=== PATIENT | female | born 1960 | race Caucasian/White ===

== ENCOUNTER 2016-12-15 15:32 | Emergency (ER) | payer OTHER ==
[~2016-12-15] VITALS: Ht 177.8 cm; Wt 125.0 kg
[~2016-12-15 15:32] MED LIST: CLON2TAB3 PO; HYDR-4079 PO; LEVO50TA PO; OMEP40CA PO; TRAZ100T29 PO
[2016-12-15 15:40] VITALS: TEMP 36.7; Ht 177.8 cm; Wt 125.0 kg
[2016-12-15] MEDS ORDERED: GABA-113 PO (16:02)
[2016-12-15] MEDS ORDERED: OMEP20CA59 PO (16:02)
[2016-12-15] MEDS ORDERED: MoRPHine SULFATE 10 MG/ML CARP/VIAL IM STA (16:11)
--- NOTE | 2016-12-15 16:31 | DIAGNOSTIC IMAGING REPORT ---
CERVICAL SPINE CT CT DOSE: HISTORY: Trauma. Pain. fall, neck pain TECHNIQUE: Multiaxial CT images of the cervical spine were performed and reformatted in the sagittal and coronal plane without the use of contrast. COMPARISON: None. FINDINGS: No fractures. No subluxation. Prevertebral soft tissues and the C1-C2 interval are intact. No pneumothorax. Moderate degenerative disc change. Prior anterior cervical fusion C6-C7. IMPRESSION: No acute process Electronically signed by: Eliu Fournier M.D. 12/15/2016 4:29 PM Dictated Date/Time: 12/15/2016 4:26 PM
--- NOTE | 2016-12-15 16:42 | DIAGNOSTIC IMAGING REPORT ---
HEAD CT NONCONTRAST CT DOSE: 1105.19 mGy.cm HISTORY: fall, head injury TECHNIQUE: Multiaxial CT images of the head were performed without the use of intravenous contrast. Automated exposure control was utilized for this study. Comparison: Head CT 05/27/2016. Findings: The paranasal sinuses and mastoid air cells are clear. The calvarium and skull base are intact. The ventricles and sulci are within normal limits. There is no mass, hematoma, midline shift, or acute infarct. Impression: No acute intracranial abnormality. Electronically signed by: Vick Belcher M.D. 12/15/2016 4:39 PM Dictated Date/Time: 12/15/2016 4:37 PM
--- NOTE | 2016-12-15 17:11 | DIAGNOSTIC IMAGING REPORT ---
RIGHT HIP UNILATERAL 2 VIEWS CLINICAL HISTORY: fall, right hip pain Right COMPARISON: None. DISCUSSION: The bones and joint spaces appear intact. There is no evidence of fracture, dislocation or bony disease. Moderate generalized degenerative change. IMPRESSION: Degenerative change. No acute bony abnormality. Electronically signed by: Eliu Fournier M.D. 12/15/2016 5:09 PM Dictated Date/Time: 12/15/2016 5:06 PM
--- NOTE | 2016-12-15 17:13 | DIAGNOSTIC IMAGING REPORT ---
RIGHT KNEE 3 VIEWS CLINICAL HISTORY: fall, right knee pain Right trauma. Pain. COMPARISON: None DISCUSSION: Considerable degenerative and postoperative change throughout the knee. Prominence of the anterior tibial tubercle is on a degenerative and a postoperative basis. No well-defined acute bony abnormality. Degenerative change of all major joint compartments of the knee. No significant joint effusion. There is no evidence for soft tissue swelling. Linear lucency lateral aspect proximal tibial metaphysis. This appears represent overlap artifact of the posterior fibula. IMPRESSION: Degenerative and postoperative change. No acute process. Electronically signed by: Eliu Fournier M.D. 12/15/2016 5:11 PM Dictated Date/Time: 12/15/2016 5:09 PM
--- NOTE | 2016-12-15 17:14 | DIAGNOSTIC IMAGING REPORT ---
LUMBAR SPINE 5 VIEWS HISTORY: Trauma. Pain. fall, low back pain COMPARISON: None. FINDINGS: There is no fracture. No subluxation. Generalized degenerative disc change. No acute compression deformity. IMPRESSION: Degenerative change. No acute process. Electronically signed by: Eliu Fournier M.D. 12/15/2016 5:12 PM Dictated Date/Time: 12/15/2016 5:11 PM
[2016-12-15 17:42] VITALS: BP 122/64; PULSE 66; O2SAT 97
[2016-12-15] MEDS ORDERED: CYCL10TA6 PO (17:50)
--- NOTE | 2016-12-15 17:51 | EMERGENCY ROOM VISIT NOTE ---
History First contact with patient: 15:42 Chief Complaint: FALL Stated Complaint: FELL, FACE, BACK, HIP AND KNEE PAIN History of Present Illness The patient is a 56 year old female who presents to the Emergency Room for evaluation after a fall. The patient states that she tripped over a hose and fell face forward. She landed onto her knees in the stones and did strike her face off the concrete. She rates her overall discomfort a 10/10. She complains of pain primarily in her head, neck, low back, right hip and right knee. The fall was not associated with any dizziness or lightheadedness. She denies any vomiting, loss of consciousness, blurry vision, slurred speech, numbness or weakness. Review of Systems A complete 6-point Review of Systems was discussed with the patient, with pertinent positives and negatives listed in the History of Present Illness. All remaining Review of Systems questions can be considered negative unless otherwise specified. Past Medical/Surgical History Medical Problems: (1) COPD (chronic obstructive pulmonary disease) Family History Patient reports no known family medical history. Social History Smoking Status: Current Every Day Smoker Marital Status: Housing Status: lives with family Occupation Status: unemployed Current/Historical Medications Scheduled Clonazepam (Klonopin), 2 MG PO TID Cyclobenzaprine Hcl (Flexeril), 10 MG PO TID Gabapentin (Neurontin), 300 MG PO TID Levothyroxine Sodium (Synthroid), 50 MCG PO DAILY Omeprazole (Prilosec), 20 MG PO DAILY Trazodone Hcl (Trazodone), 200 MG PO HS Scheduled PRN Hydrocodone/Acetaminophen 10MG/325MG ([place] 10MG/325MG), 1 TAB PO Q4H PRN for Pain Allergies Coded Allergies: Codeine (Unverified Allergy, Severe, DIFFICULTY BREATHING, 12/15/16) Ibuprofen (Unverified Allergy, Unknown, swelling, 12/15/16) Physical Exam Vital Signs Date Time Temp Pulse Resp B/P Pulse Ox O2 Delivery O2 Flow Rate FiO2 12/15/16 17:42 66 18 122/64 97 Room Air 12/15/16 15:40 36.7 88 18 132/80 95 Room Air Physical Exam VITALS: Vitals are noted on the nurse's note and reviewed by myself. Vital signs stable. GENERAL: This is a 56-year-old female, in no acute distress, nondiaphoretic, well-developed well-nourished. SKIN: There are abrasions to bilateral knees. No lacerations. HEAD: Normocephalic atraumatic. EARS: External auditory canals clear, tympanic membranes pearly yap without erythema or effusion bilaterally. No hemotympanum. EYES: Pupils equal round and reactive to light and accommodation. Extraocular movements intact. NOSE: No deformity noted. No tenderness over the nasal spine. MOUTH: Mucous membranes moist. No loose or chipped teeth. NECK: Supple without nuchal rigidity. Mild tenderness over the cervical spine. HEART: Regular rate and rhythm without murmurs gallops or rubs. LUNGS: Clear to auscultation bilaterally without wheezes, rales or rhonchi. MUSCULOSKELETAL: There is tenderness to palpation over the lumbar spine, right hip and right knee. Full range of motion of all joints. NEURO: Patient was alert and oriented to person place and time. Medical Decision & Procedures ER Provider Diagnostic Interpretation: HEAD CT NONCONTRAST Impression: No acute intracranial abnormality. CERVICAL SPINE CT IMPRESSION: No acute process LUMBAR SPINE 5 VIEWS IMPRESSION: Degenerative change. No acute process. RIGHT HIP UNILATERAL 2 VIEWS IMPRESSION: Degenerative change. No acute bony abnormality. RIGHT KNEE 3 VIEWS IMPRESSION: Degenerative and postoperative change. No acute process. Medications Administered Medications (Trade) Dose Ordered Sig/Caroline Route Start Time Stop Time Status Last Admin Dose Admin Morphine Sulfate (MoRPHine SULFATE INJ) 6 mg NOW STAT IM 12/15/16 16:11 12/15/16 16:12 DC 12/15/16 16:24 6 MG ED Course The patient was evaluated as above. She was placed in a cervical collar Patient was medicated with 6 mg morphine IM. Imaging studies were performed and read by radiology as above. Patient was reevaluated and felt much better. She was ready for discharge home. Discharge instructions were reviewed with the patient. The patient verbalized understanding of my assessment and treatment plan and was discharged home in good condition. Medical Decision Patient was evaluated as above. She was given 6 mg morphine IM for pain. She was reevaluated and had significant improvement of her pain and felt much better. X-rays and CT scans were obtained and read by radiology as above. No acute findings were noted. Conservative measures were discussed. The patient will follow-up with her primary care provider as needed. She verbalized understanding of my assessment and treatment plan and was discharged home in good condition. Impression Primary Impression: Fall Additional Impression: Contusion of multiple sites Departure Information Dispostion Home / Self-Care Condition GOOD Prescriptions Cyclobenzaprine Hcl (FLEXERIL) 10 Mg Tab 10 MG PO TID for 5 Days, #15 TAB Prov: Sue Schultz PA-C 12/15/16 Referrals Cosmo Olmedo M.D. (PCP) Patient Instructions My [facility] Additional Instructions Continue your Argyle at home as needed for pain. You have been prescribed Flexeril (cyclobenzaprine) 1-2 tabs orally, three times per day. Do NOT exceed 30 mg (6 tabs) per day. Take your first dose at bedtime as it can make you drowsy. Always take all medications as prescribed. Follow-up with your primary care provider or orthopedics as needed. Problem Qualifiers Primary Impression: Fall Encounter type: initial encounter Qualified Codes: W19.XXXA - Unspecified fall, initial encounter
== END 2016-12-15 18:00 | disposition home or self-care (01) ==
LOC: C.EDB 15:33 → C.EDA 18:00
DX: T14.8 Other injury of unspecified body region (principal); W18.09XA Striking against other object with subsequent fall, initial encounter; J44.9 Chronic obstructive pulmonary disease, unspecified; F17.210 Nicotine dependence, cigarettes, uncomplicated; Z79.899 Other long term (current) drug therapy

== ENCOUNTER 2017-06-25 06:37 | Emergency (ER) | payer OTHER ==
[~2017-06-25] VITALS: Ht 180.3 cm; Wt 120.6 kg
[~2017-06-25 06:37] MED LIST changes: +GABA-113 PO; +OMEP20CA59 PO; -OMEP40CA PO
[2017-06-25 06:43] VITALS: TEMP 36.3; Ht 180.3 cm; Wt 120.6 kg
[2017-06-25] MEDS ORDERED: METH-307 PO (07:08)
[2017-06-25] MEDS ORDERED: OMEP40CA41 PO (07:08)
[2017-06-25] MEDS ORDERED: MoRPHine SULFATE 10 MG/ML CARP/VIAL IV STA (07:20)
[2017-06-25] MEDS ORDERED: ONDANSETRON INJ 2 MG/ML 2 ML VIAL IV STA (07:20)
[2017-06-25 07:55] LABS: BASO % 0.4 %; BASO ABS # 0.03 K/uL (0-0.2); COMPLETE YES; HEMATOCRIT 42.6 % (37-47); IG% 0.1 %; LYMPH % 25.7 %; LYMPH ABS # 1.83 K/uL (1.2-3.4); MEAN CELL VOLUME 94.7 fL (80-100); MEAN CORPUSCULAR HEMOGLOBIN 31.6 pg (25-34); MEAN CORPUSCULAR HGB CONC 33.3 g/dl (32-36); MEAN PLATELET VOLUME 8.9 fL (7.4-10.4); MONO % 6.6 %; NEUT % 66.2 %; PLATELET COUNT 189 K/uL (130-400); WHITE BLOOD COUNT 7.12 K/uL (4.8-10.8)
[2017-06-25 08:20] LABS: BLOOD UREA NITROGEN 18 mg/dl (7-18); BUN/CREATININE RATIO 21.5 (10-20); CARBON DIOXIDE 29 mmol/L (21-32); CHLORIDE 107 mmol/L (98-107); CREATININE 0.86 mg/dl (0.60-1.20); GLUCOSE 96 mg/dl (70-99); SODIUM 141 mmol/L (136-145)
--- NOTE | 2017-06-25 08:37 | DIAGNOSTIC IMAGING REPORT ---
L-SPINE MIN 4 VIEWS ROUTINE HISTORY: 57 years-old Female LBP acute low back pain status post fall COMPARISON: Lumbar spine radiographs 12/15/2016 TECHNIQUE: 5 views of the lumbar spine FINDINGS: The ribs at T12 are hypoplastic. No acute fracture or subluxation of the lumbar spine. Moderate intervertebral disc space narrowing with endplate spurring and facet arthropathy at L4-L5. Multilevel endplate spurring is noted throughout the thoracic and lumbar spine. Mild intervertebral disc space narrowing at L5-S1. There is atherosclerosis of the aorta. IMPRESSION: 1. No acute lumbar spine fracture or subluxation. 2. Multilevel endplate spurring and facet arthropathy, most pronounced at L4-L5 where there is associated moderate intervertebral disc space narrowing. The above report was generated using voice recognition software. It may contain grammatical, syntax or spelling errors. Electronically signed by: Slade Mora M.D. 06/25/2017 8:36 AM Dictated Date/Time: 06/25/2017 8:34 AM
--- NOTE | 2017-06-25 08:37 | DIAGNOSTIC IMAGING REPORT ---
SINGLE VIEW PELVIS; 2 VIEWS RIGHT HIP SACRUM; 1 VIEW LEFT HIP CLINICAL HISTORY: Fall with right hip pain. FINDINGS: An AP view of the pelvis, with AP and frog-leg views of the right hip as well as an AP view of the left hip are compared to right hip films dated 12/15/2016. The skeletal structures are osteopenic. There is no radiographic evidence of fracture involving the hips or bony pelvis. Mild arthritic change and joint space narrowing is shown in both hips. A large enthesophyte arises from the left anterior superior iliac spine. Lumbosacral spondylosis is partially imaged. Bony sclerosis is noted in the pubic symphysis. The overlying soft tissues are within normal limits. Numerous pelvic phleboliths are observed. There is a nonobstructed abdominal bowel gas pattern. IMPRESSION: 1. There is no radiographic evidence of fracture involving the hips or bony pelvis. 2. Osteopenia and degenerative change as above. Electronically signed by: Porfirio Cortez M.D. 06/25/2017 8:36 AM Dictated Date/Time: 06/25/2017 8:34 AM
--- NOTE | 2017-06-25 08:39 | DIAGNOSTIC IMAGING REPORT ---
SINGLE VIEW CHEST CLINICAL HISTORY: Fall. FINDINGS: An AP upright chest radiograph is compared to study dated 05/27/2016. The examination is degraded by patient rotation. The cardiomediastinal silhouette is unremarkable. There is mild atherosclerotic calcification of the thoracic aorta. Chronic interstitial thickening is unchanged. The lungs and pleural spaces are clear. No pneumothorax is seen. The skeletal structures are osteopenic. The bony thorax is grossly intact. Degenerative change is noted throughout the thoracic spine. Postoperative change is seen in the lower cervical spine. IMPRESSION: No acute cardiopulmonary abnormality. Electronically signed by: Porfirio Cortez M.D. 06/25/2017 8:37 AM Dictated Date/Time: 06/25/2017 8:36 AM
--- NOTE | 2017-06-25 08:39 | DIAGNOSTIC IMAGING REPORT ---
LEFT ANKLE 3 VIEWS HISTORY: L ankle pain COMPARISON: None. FINDINGS: There is no fracture or dislocation. Diffuse soft tissue swelling. Plantar and posterior calcaneal spurs. No radiopaque foreign bodies. IMPRESSION: No fractures. Electronically signed by: Vick Belcher M.D. 06/25/2017 8:37 AM Dictated Date/Time: 06/25/2017 8:36 AM
--- NOTE | 2017-06-25 08:49 | DIAGNOSTIC IMAGING REPORT ---
L KNEE 3 VIEWS, R KNEE 3 VIEWS HISTORY: 57 years-old Female L knee pain bilateral knee pain status post fall COMPARISON: Right knee radiographs 12/15/2016 TECHNIQUE: 3 views of the bilateral knees FINDINGS: RIGHT: Check foraminal osteoarthritis is noted with moderate disease within the medial and lateral compartments and moderate to severe disease within the patellofemoral compartment. Chondrocalcinosis. Postsurgical changes of the proximal tibia are again seen with prominence of the tibial tuberosity. Corticated bone fragments are noted in the region of the distal aspect patellar tendon which are unchanged. No definite intra-articular loose body. No acute fracture or dislocation. Small joint effusion. LEFT: Moderate medial compartment, moderate to severe patellofemoral and mild to moderate lateral osteoarthritis. Chondrocalcinosis. No acute fracture or dislocation. Small joint effusion. IMPRESSION: 1. No acute fracture or dislocation of the right or left knee. 2. Tricompartmental osteoarthritis bilaterally as above. The above report was generated using voice recognition software. It may contain grammatical, syntax or spelling errors. Electronically signed by: Slade Mora M.D. 06/25/2017 8:48 AM Dictated Date/Time: 06/25/2017 8:36 AM
[2017-06-25] MEDS ORDERED: HYDROmorphone INJ 0.5 MG/0.5 ML SYR IV STA (08:56)
[2017-06-25 10:19] VITALS: BP 117/83; PULSE 53; O2SAT 93
--- NOTE | 2017-06-25 16:35 | EMERGENCY ROOM VISIT NOTE ---
History First contact with patient: 07:12 Chief Complaint: HIP PAIN Stated Complaint: HIP PAIN History of Present Illness The patient is a 57 year old female who presents to the Emergency Room via ALS ambulance for evaluation of injuries after falling in her bathroom this morning. The patient reports that she got up this morning to go to the bathroom. The patient reports that she fell asleep on the toilet, and when she tried to get up she got her left foot caught, causing her to fall. She felt an immediate pop in the right hip, and noticed severe left ankle pain. She also complains of bilateral knee pain. She denies hitting her head, neck pain or upper/central back pain. She does report lower back pain as well. The patient reports a history of chronic neck and back pain, along with chronic bilateral knee pain. She is currently in pain management with her PCP, Dr. Olmedo in [place]. The patient is status post bilateral knee replacement by Dr. Rangel in [place]. The patient denies history of back surgery. She has had epidural steroid injections over 3 years ago. She denies any history of chronic sciatica or lumbar radiculopathy. The patient currently rates her discomfort a 10 out of 10. ALS crew was unable to establish an IV en route. Review of Systems HEENT: Denies dizziness, visual problems, hearing loss, tinnitus. Denies difficulty swallowing or oral lesions. PULMONARY: Denies cough, shortness of breath, sputum production or hemoptysis. CARDIOVASCULAR: Denies chest pain, palpitations, dyspnea on exertion, orthopnea or peripheral edema. GASTROINTESTINAL: Denies diarrhea, constipation, nausea, vomiting, or abdominal pain. GENITOURINARY: Denies dysuria, frequency, urgency or nocturia. NEUROLOGIC: Denies history of epilepsy, CVA, TIA or chronic headaches. MUSCULOSKELETAL: See history of present illness. SKIN: Denies rashes or lesions. PSYCHIATRIC: Denies history of depression or mental illness. ENDOCRINE: Denies history of diabetes or thyroid disorders. Past Medical/Surgical History Medical Problems: (1) COPD (chronic obstructive pulmonary disease) Family History Patient reports no known family medical history. Social History Smoking Status: Current Every Day Smoker Marital Status: Housing Status: lives with family Occupation Status: unemployed Current/Historical Medications Scheduled Clonazepam (Klonopin), 2 MG PO TID Gabapentin (Neurontin), 300 MG PO TID Levothyroxine Sodium (Synthroid), 50 MCG PO DAILY Omeprazole (Prilosec), 40 MG PO DAILY Trazodone Hcl (Trazodone), 200 MG PO HS Scheduled PRN Hydrocodone/Acetaminophen 10MG/325MG ([place] 10MG/325MG), 1 TAB PO Q4H PRN for Pain Methocarbamol (Robaxin), 750 MG PO BID PRN for Muscle Spasms Physical Exam Vital Signs Date Time Temp Pulse Resp B/P (MAP) Pulse Ox O2 Delivery O2 Flow Rate FiO2 06/25/17 10:19 53 16 117/83 93 06/25/17 08:50 59 18 141/72 95 06/25/17 06:43 36.3 52 20 145/77 97 Room Air Physical Exam CONSTITUTIONAL: Obese female, alert and oriented X 3 with positive affect. GCS 15. The patient reports in moderately severe discomfort. HEENT: Normocephalic, atraumatic. Pupils equal, round and reactive. No subconjunctival hemorrhage, epistaxis, hemotympanum, raccoon's eyes or Castillo sign. NECK: Full active range of motion without discomfort. RESPIRATORY: Clear to auscultation bilaterally with no wheezing, crackles, rhonchi or stridor. Deep breathing does not cause any discomfort. CARDIOVASCULAR: Regular rate and rhythm with no murmurs, rubs or gallops. GASTROINTESTINAL: Bowel sounds present in all quadrants. Soft and nontender to palpation. MUSCULOSKELETAL: I was unable to palpate the back because of body habitus and the patient's inability to move secondary to right hip pain. The patient is holding her right hip and knee in flexion with a pillow under her knee for support. The patient also has generalized bilateral knee discomfort and left ankle discomfort. Distal pulses are intact. INTEGUMENTARY: No rash or other significant dermatologic conditions noted. NEUROLOGIC: No focal neurologic deficits noted. Lower extremities are sensory intact. Medical Decision & Procedures ER Provider Diagnostic Interpretation: My interpretation of right hip and pelvis x-rays does not show any obvious fractures or dislocation. Radiologist report is as follows: IMPRESSION: 1. There is no radiographic evidence of fracture involving the hips or bony pelvis. 2. Osteopenia and degenerative change as above. My interpretation of lumbar spine x-rays IMPRESSION: 1. No acute lumbar spine fracture or subluxation. 2. Multilevel endplate spurring and facet arthropathy, most pronounced at L4-L5 where there is associated moderate intervertebral disc space narrowing. My interpretation of bilateral knee x-rays does not show any acute fractures or dislocation. Tricompartmental degenerative changes are noted in both knees. Radiologist report is as follows: IMPRESSION: 1. No acute fracture or dislocation of the right or left knee. 2. Tricompartmental osteoarthritis bilaterally as above. My interpretation of left ankle x-rays does not show any acute fractures or dislocation. Radiologist report is as follows: LEFT ANKLE 3 VIEWS HISTORY: L ankle pain COMPARISON: None. FINDINGS: There is no fracture or dislocation. Diffuse soft tissue swelling. Plantar and posterior calcaneal spurs. No radiopaque foreign bodies. IMPRESSION: No fractures. Laboratory Results 06/25/17 07:40 Red Blood Count 4.50, Mean Corpuscular Volume 94.7, Mean Corpuscular Hemoglobin 31.6, Mean Corpuscular Hemoglobin Concent 33.3, Mean Platelet Volume 8.9, Neutrophils (%) (Auto) 66.2, Lymphocytes (%) (Auto) 25.7, Monocytes (%) (Auto) 6.6, Eosinophils (%) (Auto) 1.0, Basophils (%) (Auto) 0.4, Neutrophils # (Auto) 4.71, Lymphocytes # (Auto) 1.83, Monocytes # (Auto) 0.47, Eosinophils # (Auto) 0.07, Basophils # (Auto) 0.03 06/25/17 07:40 06/25/17 09:02 Test 06/25/17 07:40 White Blood Count 7.12 K/uL (4.8-10.8) Red Blood Count 4.50 M/uL (4.2-5.4) Hemoglobin 14.2 g/dL (12.0-16.0) Hematocrit 42.6 % (37-47) Mean Corpuscular Volume 94.7 fL (80-100) Mean Corpuscular Hemoglobin 31.6 pg (25-34) Mean Corpuscular Hemoglobin Concent 33.3 g/dl (32-36) Platelet Count 189 K/uL (130-400) Mean Platelet Volume 8.9 fL (7.4-10.4) Neutrophils (%) (Auto) 66.2 % Lymphocytes (%) (Auto) 25.7 % Monocytes (%) (Auto) 6.6 % Eosinophils (%) (Auto) 1.0 % Basophils (%) (Auto) 0.4 % Neutrophils # (Auto) 4.71 K/uL (1.4-6.5) Lymphocytes # (Auto) 1.83 K/uL (1.2-3.4) Monocytes # (Auto) 0.47 K/uL (0.11-0.59) Eosinophils # (Auto) 0.07 K/uL (0-0.5) Basophils # (Auto) 0.03 K/uL (0-0.2) RDW Standard Deviation 45.4 fL (36.4-46.3) RDW Coefficient of Variation 13.3 % (11.5-14.5) Immature Granulocyte % (Auto) 0.1 % Immature Granulocyte # (Auto) 0.01 K/uL (0.00-0.02) Anion Gap 5.0 mmol/L (3-11) Est Creatinine Clear Calc Drug Dose 100.8 ml/min Estimated GFR () 85.7 Estimated GFR (Non- 73.9 BUN/Creatinine Ratio 21.5 (10-20) Calcium Level 9.0 mg/dl (8.5-10.1) The above labs were reviewed. Medications Administered Medications (Trade) Dose Ordered Sig/Caroline Route Start Time Stop Time Status Last Admin Dose Admin Morphine Sulfate (MoRPHine SULFATE INJ) 10 mg NOW STAT IV 06/25/17 07:20 06/25/17 07:24 DC 06/25/17 07:47 10 MG Ondansetron HCl (Zofran Inj) 4 mg NOW STAT IV 06/25/17 07:20 06/25/17 07:24 DC 06/25/17 07:45 4 MG Hydromorphone HCl (Dilaudid Inj) 0.5 mg NOW STAT IV 06/25/17 08:56 06/25/17 08:58 DC 06/25/17 09:07 0.5 MG ED Course Patient history and physical exam were performed. Nurse's notes were reviewed. Vital signs were reviewed and were normal. The patient appears in moderate severe discomfort. IV access was established, and labs were drawn. The patient was administered IV morphine and Zofran for pain. Right hip and pelvic x-rays, along with x-rays of the lumbar spine, bilateral knees and left ankle were normal. The patient did report moderate relief of her pain, but did request something else for the pain. She was administered Dilaudid 0.5 mg IVP. The patient was able to trial ambulated with a walker. I did explain that if she was unable to ambulate, we would have to consider rehabilitation basement. The patient refused, and the daughter reported that she would take her home. The patient does have a walker and wheelchair at home. The patient was encouraged to follow-up with her PCP in the next 2-3 days for reevaluation. The patient was happy with plan of care, voiced understanding of all discharge instructions, and rated her pain a 4 out of 10 at the conclusion of my exam. Review of the [place] Prescription Drug Monitoring Program shows that the patient does receive chronic pain management by her PCP, and the patient was instructed to contact her PCP as needed for any further pain management needs. The case was also evaluated with Dr. Altman who agrees with workup and plan of care. Medical Decision Medication Reconcilliation Current Medication List: was personally reviewed by me Impression Primary Impression: Right hip pain Additional Impressions: Bilateral knee pain Left ankle pain Lower back pain Fall in home Departure Information Referrals Cosmo Olmedo M.D. (PCP) Patient Instructions My [facility] Problem Qualifiers Additional Impressions: Bilateral knee pain Chronicity: acute Qualified Codes: M25.561 - Pain in right knee; M25.562 - Pain in left knee Left ankle pain Chronicity: acute Qualified Codes: M25.572 - Pain in left ankle and joints of left foot Lower back pain Chronicity: acute Back pain laterality: unspecified Sciatica presence: without sciatica Qualified Codes: M54.5 - Low back pain Fall in home Encounter type: initial encounter Qualified Codes: W19.XXXA - Unspecified fall, initial encounter; Y92.099 - Unspecified place in other non-institutional residence as the place of occurrence of the external cause
== END 2017-06-25 10:20 | disposition home or self-care (01) ==
LOC: EDBD 06:37 → C.EDB 06:41
DX: M25.551 Pain in right hip (principal); M25.561 Pain in right knee; M25.562 Pain in left knee; M25.572 Pain in left ankle and joints of left foot; M54.5 Low back pain; F17.210 Nicotine dependence, cigarettes, uncomplicated; W19.XXXA Unspecified fall, initial encounter; Y92.012 Bathroom of single-family (private) house as the place of occurrence of the external cause; J44.9 Chronic obstructive pulmonary disease, unspecified; Z96.651 Presence of right artificial knee joint; Z96.652 Presence of left artificial knee joint; Z79.899 Other long term (current) drug therapy

== ENCOUNTER 2018-04-02 21:20 | Inpatient (IN) | payer OTHER ==
[~2018-04-02] VITALS: Ht 177.8 cm; Wt 122.1 kg
[~2018-04-02 21:20] MED LIST changes: +CLON2TAB10 PO; -CLON2TAB3 PO; +METH-307 PO; -OMEP20CA59 PO; +OMEP40CA41 PO
[2018-04-02] MEDS ORDERED: METHYLPREDNISOLONE 125 MG VIAL IV STA (21:34)
[2018-04-02] MEDS ORDERED: FAMOTIDINE 20MG/5ML IV PUSH IV STA (21:34)
--- NOTE | 2018-04-02 21:43 | EMERGENCY ROOM VISIT NOTE ---
History Report prepared by Shawna: Cortes Mabry Under the Supervision of: Dr. Julio Valdes M.D. First contact with patient: 21:34 Chief Complaint: ALLERGIC REACTION Stated Complaint: UNRESPONSIVE, ALLERGIC REACTION History of Present Illness The patient is a 58 year old female who presents to the Emergency Room for anaphylactic reaction to bee sting. EMS states that the patient was conscious and alert at first, and then became unresponsive. She was given one EpiPen and Benadryl. HPI is limited due to patient condition. Review of Systems Limited due to medical condition. Past Medical & Surgical Medical Problems: (1) COPD (chronic obstructive pulmonary disease) Family History Patient reports no known family medical history. Social History Smoking Status: Current Every Day Smoker Marital Status: Housing Status: lives with family Occupation Status: unemployed Current/Historical Medications Scheduled Clonazepam (Klonopin), 2 MG PO TID Gabapentin (Neurontin), 300 MG PO TID Levothyroxine Sodium (Synthroid), 50 MCG PO DAILY Omeprazole (Prilosec), 40 MG PO DAILY Trazodone Hcl (Trazodone), 200 MG PO HS Scheduled PRN Hydrocodone/Acetaminophen 10MG/325MG ([place] 10MG/325MG), 1 TAB PO Q4H PRN for Pain Methocarbamol (Robaxin), 750 MG PO BID PRN for Muscle Spasm Allergies Coded Allergies: BEE STING (Verified Allergy, Severe, ANAPHYLAXIS, 04/02/18) Codeine (Unverified Allergy, Severe, DIFFICULTY BREATHING, 06/25/17) Ibuprofen (Unverified Allergy, Unknown, swelling, 06/25/17) Physical Exam Vital Signs Date Time Temp Pulse Resp B/P (MAP) Pulse Ox O2 Delivery O2 Flow Rate FiO2 04/02/18 23:01 133/68 04/02/18 22:50 80 21 98 Nasal Cannula 4.0 04/02/18 22:45 36.6 147/64 04/02/18 22:35 82 16 96 04/02/18 22:30 147/64 04/02/18 22:26 142/94 04/02/18 22:23 114/80 04/02/18 22:07 149/95 04/02/18 22:05 85 21 100 04/02/18 21:57 96/82 04/02/18 21:52 153/67 92 Room Air 04/02/18 21:50 85 19 100 Room Air 04/02/18 21:46 164/73 04/02/18 21:40 95 Room Air 04/02/18 21:35 82 22 100 Room Air 04/02/18 21:33 78 04/02/18 21:32 163/131 04/02/18 21:20 81 16 99 Ambu-Bag 15.0 Physical Exam Physical Exam GENERAL: She does appear distressed. HENT: Exam performed. Head: Normocephalic and atraumatic. EYES: Conjunctivae and EOM are normal. Pupils are equal, round, and reactive to light. No scleral icterus. CV: Normal rate, regular rhythm, normal heart sounds and intact distal pulses. There is no peripheral edema. Palpable radial pulses bue. PULM/CHEST: Diminished breath sounds bilaterally. ABD: The abdomen is soft. Not distended. NEURO: GCS eye subscore is 1. GCS verbal subscore is 1. GCS motor subscore is 1. Medical Decision & Procedures Laboratory Results 04/02/18 21:55 Red Blood Count 4.26, Mean Corpuscular Volume 96.2, Mean Corpuscular Hemoglobin 32.2, Mean Corpuscular Hemoglobin Concent 33.4, Mean Platelet Volume 8.9 04/02/18 21:55 Test 04/02/18 21:53 04/02/18 21:55 04/02/18 22:20 Lactic Acid Level 2.4 mmol/L (0.4-2.0) Ethyl Alcohol mg/dL < 3.0 mg/dl (0-3) White Blood Count 9.96 K/uL (4.8-10.8) Red Blood Count 4.26 M/uL (4.2-5.4) Hemoglobin 13.7 g/dL (12.0-16.0) Hematocrit 41.0 % (37-47) Mean Corpuscular Volume 96.2 fL (80-100) Mean Corpuscular Hemoglobin 32.2 pg (25-34) Mean Corpuscular Hemoglobin Concent 33.4 g/dl (32-36) Platelet Count 202 K/uL (130-400) Mean Platelet Volume 8.9 fL (7.4-10.4) RDW Standard Deviation 45.8 fL (36.4-46.3) RDW Coefficient of Variation 13.2 % (11.5-14.5) Venous Blood pH 7.33 (7.36-7.41) Venous Blood Partial Pressure CO2 59 mmHg (38.0-50.0) Venous Blood Partial Pressure O2 36 mmHg Venous Blood HCO3 30 mmol/L Venous Blood Oxygen Saturation 66.1 % Venous Blood Base Excess 2.8 mEq/L Anion Gap 7.0 mmol/L (3-11) Est Creatinine Clear Calc Drug Dose 97.5 ml/min Estimated GFR () 81.6 Estimated GFR (Non- 70.4 BUN/Creatinine Ratio 14.3 (10-20) Calcium Level 8.4 mg/dl (8.5-10.1) Total Bilirubin 0.4 mg/dl (0.2-1) Direct Bilirubin 0.1 mg/dl (0-0.2) Aspartate Amino Transf (AST/SGOT) 12 U/L (15-37) Alanine Aminotransferase (ALT/SGPT) 15 U/L (12-78) Alkaline Phosphatase 102 U/L (45-117) Ammonia 13.6 umol/L (11-32) Troponin I < 0.015 ng/ml (0-0.045) Total Protein 6.8 gm/dl (6.4-8.2) Albumin 3.6 gm/dl (3.4-5.0) Lipase 63 U/L (73-393) Human Chorionic Gonadotropin, Quant 3 mIU/mL Urine Color YELLOW Urine Appearance CLEAR (CLEAR) Urine pH 5.0 (4.5-7.5) Urine Specific [place] 1.021 (1.000-1.030) Urine Protein NEG (NEG) Urine Glucose (UA) NEG (NEG) Urine Ketones TRACE (NEG) Urine Occult Blood NEG (NEG) Urine Nitrite NEG (NEG) Urine Bilirubin NEG (NEG) Urine Urobilinogen NEG (NEG) Urine Leukocyte Esterase NEG (NEG) Urine Opiates Screen POS (NEG) Urine Methadone, Qualitative NEG (NEG) Urine Barbiturates POS (NEG) Urine Phencyclidine (PCP) Level NEG (NEG) Ur Amphetamine/Methamphetamine NEG (NEG) MDMA (Ecstasy) Screen POS (NEG) Urine Benzodiazepines Screen POS (NEG) Urine Cocaine Metabolite NEG (NEG) Urine Marijuana (THC) NEG (NEG) Medications Administered Medications (Trade) Dose Ordered Sig/Caroline Route Start Time Stop Time Status Last Admin Dose Admin Methylprednisolone Sodium Succinate (Solu-Medrol IV) 125 mg NOW STAT IV 04/02/18 21:34 04/02/18 21:37 DC 04/02/18 21:35 125 MG Famotidine (Pepcid 20mg Iv Push) 20 mg ONE STAT IV 04/02/18 21:34 04/02/18 21:37 DC 04/02/18 22:01 20 MG ECG Per My Interpretation Indication: other (unresponsive) Rate (beats per minute): 84 Rhythm: sinus rhythm Findings: other ([place], QRS, and QTC intervals within normal limits. No ST elevation or depression.) ED Course 2118: The patient was evaluated in room B1. A complete history and physical exam was performed. On arrival the patient was immediately seen in the resuscitation bay in room B1. Unable to obtain automatic or manual blood pressure. GCS of 3 patient not responsive to pain and making no sounds. Eyes are closed. Patient was being bagged via EMS. Sats 100% while being ventilated with Ambu bag. Given the hypotension, altered mental status, and low GCS score a severe anaphylactic reaction was strongly considered. Repeat epi 0.3 mg IM was given. Preparing for intubation as well as to start epinephrine drip given the low blood pressure. 2131: I was preparing the patient for intubation, and the IO was placed by colleague Dr. Hassan. The patient then began to start yelling. Her blood pressure is attainable and the airway is clear. She is screaming at staff. Given her change in GCS, now greater than 8 and that her airway is no longer in danger will hold off on intubation at this time. Anaphylaxis remains high on differential however other differentials given the sudden change clinical appearance include but are not limited to ICH, CVA, overdose, intoxication. Will hold epinephrine drip at this time. 0: I spoke with the patient's family at bedside, including the brother, sister, and [id number]. [place] 9 PM was stung by a bee on her arm. They report swelling of the arm and state that she then lost consciousness. They states that she was not drinking alcohol or doing drugs. I called the patient's daughter on the family's cell phone and spoke with her on speaker. The daughter states that the patient has a history of Micheal disease, COPD, and "heart and back issues." She also reports that the patient has an allergy to codeine. The daughter notes that the patient takes unknown medication for thyroid problems, Trazodone, and pain medication, possibly Lortab. The daughter on the phone reports that the patient has a psychiatric history at [facility]. She is not sure if the patient is on antidepressants or psychiatric medications at this time. The daughter also reports that the patient has a history of "faking it for attention." 2299: Vital signs stable. Patient continues have stable blood pressure, heart rate within normal limits, and satting well on nasal cannula. Patient denies any illicit drug use. Labs within normal limits with the exception of minimally elevated lactate of 2.4. CT head and chest x-ray within normal limits. I spoke to Dr. Radha Godfrey Hospitalist. He will reevaluate the patient for hospitalization. Medical Decision 2118: The patient was evaluated in room B1. A complete history and physical exam was performed. On arrival the patient was immediately seen in the resuscitation bay in room B1. Unable to obtain automatic or manual blood pressure. GCS of 3 patient not responsive to pain and making no sounds. Eyes are closed. Patient was being bagged via EMS. Sats 100% while being ventilated with Ambu bag. Given the hypotension, altered mental status, and low GCS score a severe anaphylactic reaction was strongly considered. Repeat epi 0.3 mg IM was given. Preparing for intubation as well as to start epinephrine drip given the low blood pressure. 2131: I was preparing the patient for intubation, and the IO was placed by colleague Dr. Hassan. The patient then began to start yelling. Her blood pressure is attainable and the airway is clear. She is screaming at staff. Given her change in GCS, now greater than 8 and that her airway is no longer in danger will hold off on intubation at this time. Anaphylaxis remains high on differential however other differentials given the sudden change clinical appearance include but are not limited to ICH, CVA, overdose, intoxication. Will hold epinephrine drip at this time. 2139: I spoke with the patient's family at bedside, including the brother, sister, and [id number]. [place], and [place] 9 PM was stung by a bee on her arm. They report swelling of the arm and state that she then lost consciousness. They states that she was not drinking alcohol or doing drugs. I called the patient's daughter on the family's cell phone and spoke with her on speaker. The daughter states that the patient has a history of Micheal disease, COPD, and "heart and back issues." She also reports that the patient has an allergy to codeine. The daughter notes that the patient takes unknown medication for thyroid problems, Trazodone, and pain medication, possibly Lortab. The daughter on the phone reports that the patient has a psychiatric history at [place]. She is not sure if the patient is on antidepressants or psychiatric medications at this time. The daughter also reports that the patient has a history of "faking it for attention." 2299: Vital signs stable. Patient continues have stable blood pressure, heart rate within normal limits, and satting well on nasal cannula. Patient denies any illicit drug use. Labs within normal limits with the exception of minimally elevated lactate of 2.4. CT head and chest x-ray within normal limits. I spoke to Dr. Radha Hamm. He will reevaluate the patient for hospitalization. Consults Time Called: [phone] Consulting Physician: Dr. Radha Hamm Returned Call: [phone] Radha Hamm. He will reevaluate the patient for hospitalization. Impression Primary Impression: Anaphylaxis Critical Care I have personally spent greater than 43 minutes of critical care time in the direct management of this patient. This includes bedside care, interpretation of diagnostic studies, and testing, discussion with consultants, patient, and family members, and other required patient management activities. This 43 minutes is in excess of all separately billable procedures. Scribe Attestation The scribe's documentation has been prepared under my direction and personally reviewed by me in its entirety. I confirm that the note above accurately reflects all work, treatment, procedures, and medical decision making performed by me. The chart was completed utilizing [employer] Speech voice recognition software. Grammatical errors, random word insertions, pronoun errors, and incomplete sentences are an occasional consequence of this system due to software limitations, ambient noise, and hardware issues. Any formal questions or concerns about the content, text, or information contained within the body of this dictation should be directly addressed to the physician for clarification. Departure Information Dispostion Being Evaluated By Hospitalist Referrals Cosmo Olmedo M.D. (PCP) Patient Instructions [facility] Problem Qualifiers Primary Impression: Anaphylaxis Encounter type: initial encounter Qualified Codes: T78.2XXA - Anaphylactic shock, unspecified, initial encounter
--- NOTE | 2018-04-02 22:13 | DIAGNOSTIC IMAGING REPORT ---
CHEST ONE VIEW PORTABLE CLINICAL HISTORY: Acute change in mental status. Allergic reaction. Unresponsive patient. COMPARISON STUDY: 06/25/2017 FINDINGS: The heart is borderline enlarged. There is no focal pulmonary consolidation. There is no overt failure. There are no pleural effusions. There is minor chronic interstitial thickening. Postsurgical changes are present within the cervical spine.[ IMPRESSION: No active disease in the chest. Electronically signed by: Amarjit Sanchez M.D. 04/02/2018 10:11 PM Dictated Date/Time: 04/02/2018 10:11 PM
--- NOTE | 2018-04-02 22:23 | DIAGNOSTIC IMAGING REPORT ---
CT HEAD WITHOUT CONTRAST (CT) CLINICAL HISTORY: Acute change in mental status. Unresponsive. Allergic reaction. COMPARISON STUDY: 12/15/2016 TECHNIQUE: Axial CT of the brain is performed from the vertex to the skull base. IV contrast was not administered for this examination. A dose lowering technique was utilized adhering to the principles of ALARA. CT DOSE: 749.40 mGy.cm FINDINGS: No intra or extra-axial mass lesions are visualized. There is no CT evidence of acute cortical infarction. There is no evidence of midline shift. There is no acute hemorrhage. No calvarial fractures are visualized. There is no evidence of pathologic ventricular dilatation. There is no evidence of acute sinusitis IMPRESSION: No acute intracranial findings Electronically signed by: Amarjit Sanchez M.D. 04/02/2018 10:22 PM Dictated Date/Time: 04/02/2018 10:20 PM
[2018-04-02 22:35] LABS: ALBUMIN 3.6 gm/dl (3.4-5.0); ALKALINE PHOSPHATASE 102 U/L (45-117); ALT/SGPT 15 U/L (12-78); AST/SGOT 12 U/L (15-37); BLOOD UREA NITROGEN 13 mg/dl (7-18); CALCIUM 8.4 mg/dl (8.5-10.1); CARBON DIOXIDE 26 mmol/L (21-32); CREATININE 0.89 mg/dl (0.60-1.20); GLUCOSE 143 mg/dl (70-99); LIPASE 63 U/L (73-393); POTASSIUM 3.4 mmol/L (3.5-5.1); SODIUM 140 mmol/L (136-145); TOTAL PROTEIN 6.8 gm/dl (6.4-8.2)
[2018-04-02 22:42] LABS: HEMOGLOBIN 13.7 g/dL (12.0-16.0); MEAN CELL VOLUME 96.2 fL (80-100); MEAN CORPUSCULAR HEMOGLOBIN 32.2 pg (25-34); MEAN CORPUSCULAR HGB CONC 33.4 g/dl (32-36); MEAN PLATELET VOLUME 8.9 fL (7.4-10.4); PLATELET COUNT 202 K/uL (130-400); RED CELL DISTRIBUTION WIDTH CV 13.2 % (11.5-14.5); RED CELL DISTRIBUTION WIDTH SD 45.8 fL (36.4-46.3); WHITE BLOOD COUNT 9.96 K/uL (4.8-10.8)
--- NOTE | 2018-04-02 23:28 | EMERGENCY ROOM VISIT NOTE ---
ED Visit Note Procedure Note: Assisted upon arrival in B1 with patient resuscitation. Patient unresponsive. Limited IV access. Left tibial EZ IO 45mm placed by myself after alcohol prep in the left proximal tibia for access and labs. One attempt without complication. Marrow and blood aspirate. Labs collected. Flushed. Given 40mg of lidocaine via IO for pain control locally. Secured with commercial IO device to patient. Patient awake after placement but did complain of pain at IO site. No evidence of infiltration.
[2018-04-02] MEDS ORDERED: POTASSIUM CHLORIDE 10 MEQ TABCR PO STA (23:51)
[2018-04-03] VITALS (8 sets, daily range): BP systolic 145–171; BP diastolic 78–106; PULSE 69–76; TEMP 36.6–36.7; O2SAT 91–97; Ht 177.8 cm; Wt 122.1 kg
[2018-04-03] MEDS ORDERED: ALUMINUM/MAGNESIUM/SIMETH (MAALOX MAX) 30 ML UDC PO PRN
[2018-04-03] MEDS ORDERED: FAMOTIDINE IV INJ 20 MG in DEXTROSE 5% 100ML 100 ML IV SCH ×2
[2018-04-03] MEDS ORDERED: ONDANSETRON INJ 2 MG/ML 2 ML VIAL IV PRN
[2018-04-03] MEDS ORDERED: ALBUTEROL HFA 8 GM INHALER INH PRN
[2018-04-03] MEDS ORDERED: POLYETHYLENE (MIRALAX) 17 GM PACK PO PRN
[2018-04-03] MEDS ORDERED: NITROGLYCERIN 0.4 MG SL PER TAB CHARGE SL PRN
[2018-04-03] MEDS ORDERED: ACETAMINOPHEN 325 MG TAB PO PRN
[2018-04-03] MEDS: HYDROCODONE/ACETAMI 10/325 TAB PO PRN ×3 (01:04→11:03)
[2018-04-03] MEDS: SODIUM CHLORIDE 0.9% 1000ML 1,000 ML IV SCH ×2 (01:13→11:40)
[2018-04-03] MEDS: METHOCARBAMOL 750 MG TAB PO PRN ×2 (01:14→08:10)
--- NOTE | 2018-04-03 02:07 | HISTORY & PHYSICAL EXAMINATION ---
DATE OF ADMISSION: 04/02/2018 CHIEF COMPLAINT: Anaphylactic reaction from bee sting. HISTORY OF PRESENT ILLNESS: This 58-year-old female with past medical history significant for hypothyroidism, COPD,chronic pain, history of Lyme disease and [place] disease at that time she was put on temporary pacemaker. History of anxiety, GERD, osteoarthrosis, presents because of bee sting and possible anaphylactic reaction. The patient was in [facility] today listening to band when she was being bit with bee on her right wrist and she developed pain and not feeling well and medics who were nearby came in. Initially, she was responsive, alert and oriented and blood pressure was okay, but suddenly she became unresponsive. The patient was given epinephrine. At that time they could not get the blood pressure, and she was brought in to the ER. She was still unresponsive when she came to the ER and still could not get blood pressure and another dose of epinephrine was given and the ER physician does not know what was happening and was preparing himself to intubate her and start her on epinephrine drip and IO was placed. When the IO was placed, the patient started to yell and the patient woke up and since then she was awake and alert and she was able to talk . And her vitals stabilized.Er physician also talked to daughter on phone and daughter told that the patient has a psychiatric history and was in [facility] and daughter also reported the patient has history of faking it for attention. Currently, the patient is alert and awake and oriented x3. Friend is in the room who was with her at the [facility]. The patient complaints of some nausea, abdominal discomfort. No runny nose, no earache, no chest pain, no shortness of breath, no cough, no recent fever, chills. Normal bowel and bladder movements. The patient says she has pain at the interosseous line and she has several surgeries in the right leg and she is complaining of chronic headaches and neck pain and backache and requests for pain medication. The patient says she takes pain medications at home. Currently alert and oriented, hemodynamically stable. ALLERGIES: TO BEE STINGS, CODEINE, IBUPROFEN. PAST MEDICAL HISTORY: As mentioned above. PAST SURGICAL HISTORY: Several bilateral knee surgeries, spacers placed in her neck, tonsillectomy, adenoidectomy, appendectomy. MEDICATIONS: The patient is on Klonopin 2 mg p.o. t.i.d., [place] 10/325 mg one tablet p.o. q. 4 hours p.r.n. for pain, levothyroxine 50 mcg p.o. daily, Robaxin 750 mg p.o. b.i.d. p.r.n. for muscle spasm, Prilosec 40 mg p.o. daily, trazodone 200 mg p.o. at bedtime. FAMILY HISTORY: Mother had lung cancer. Father had MO. SOCIAL HISTORY: Smokes 1 pack a day for several years. No alcohol use, no drug use. REVIEW OF SYMPTOMS: As per HPI. Rest of review of symptoms negative. PHYSICAL EXAMINATION: GENERAL: The patient is obese, not in distress. VITAL SIGNS: Temperature 36.6, pulse 60-80, respiratory rate 21, blood pressure 138/60, oxygen 98% on 4 L. HEENT: No pallor, no icterus. Pupils equal, round, and reactive to light. NECK: No JVD, no neck masses, no carotid bruit. CARDIOVASCULAR: S1, S2 heard, regular rate and rhythm, no murmur, no gallop. RESPIRATORY SYSTEM: Clear to auscultation. No wheezing, no crackles. ABDOMEN: Soft, bowel sounds present, nontender. No distention. CENTRAL NERVOUS SYSTEM: Cranial nerves II-XII grossly intact. Nonfocal. EXTREMITIES: No edema, no erythema seen. LABORATORIES: WBC 9.6, hemoglobin 13.7, hematocrit 41, platelets 202. Sodium 140, potassium 3.4, chloride 108, bicarb 26, BUN 13, creatinine 0.8, serum glucose 143. Lactic acid 2.4, calcium 8.4, total bilirubin 0.4, direct bilirubin 0.1, AST 12, ALT 15, alkaline phosphatase is 102. Ammonia 13.6, troponin I less than 0.015. Lipase 63. Toxicology screen positive for opiates, barbiturates,benzodiazepines. Urinalysis positive for trace ketones. CT of the head, no acute intracranial findings seen. Chest x-ray: No acute disease in the chest. EKG: Normal sinus rhythm with rate of 84. No significant change from previous EKG. ASSESSMENT AND PLAN: This is a 58-year-old female who presents with bee sting anaphylactic reaction. 1. Bee sting anaphylaxis. Received 2 dose of epinephrine. Initially on presentation was unresponsive and ER physician thought to intubate her and start her on epinephrine drip. Intraosseous line was placed when she woke up and was yelling with pain and she is currently alert and oriented and hemodynamically stable. Received Benadryl and epinephrine in the field.. Received another dose of epinephrine, IV Pepcid and Solu-Medrol in the ER. We will continue with IV Solu-Medrol, IV Pepcid, and Zyrtec. Monitor in the tele floor. 2. Anxiety and depression. Continue her trazodone and Klonopin. 3. History of chronic pain from multiple surgeries. Continue home pain medications. 4. Hypothyroidism. Micheal thyroid disease. Continue levothyroxine. 5. Tobacco abuse and chronic obstructive pulmonary disease. albuterol p.r.n. 6. Deep venous thrombosis prophylaxis, SCDs for now. 7. Disposition: Admit to tele floor. Expect to discharge home and follow up with her family doctor. Level 1 full code. MTDD
[2018-04-03 05:40] LABS: BASO % 0.1 %; BASO ABS # 0.01 K/uL (0-0.2); HEMATOCRIT 43.4 % (37-47); HEMOGLOBIN 14.3 g/dL (12.0-16.0); IG# 0.02 K/uL (0.00-0.02); LYMPH % 6.9 %; LYMPH ABS # 0.71 K/uL (1.2-3.4); MEAN CORPUSCULAR HEMOGLOBIN 31.6 pg (25-34); MEAN CORPUSCULAR HGB CONC 32.9 g/dl (32-36); MEAN PLATELET VOLUME 8.7 fL (7.4-10.4); MONO % 1.3 %; MONO ABS # 0.13 K/uL (0.11-0.59); NEUT % 91.5 %; NEUT ABS # 9.38 K/uL (1.4-6.5); PLATELET COUNT 182 K/uL (130-400); RED CELL DISTRIBUTION WIDTH CV 12.9 % (11.5-14.5); RED CELL DISTRIBUTION WIDTH SD 44.7 fL (36.4-46.3); WHITE BLOOD COUNT 10.25 K/uL (4.8-10.8)
[2018-04-03 05:51] LABS: CALCIUM 8.5 mg/dl (8.5-10.1); CREATININE 0.89 mg/dl (0.60-1.20)
[2018-04-03] MEDS ORDERED: LEVOTHYROXINE 50 MCG TAB PO SCH (06:00)
[2018-04-03 07:45] LABS: POTASSIUM 4.2 mmol/L (3.5-5.1)
[2018-04-03] MEDS: CLONAZEPAM 1 MG TAB PO SCH ×2 (08:07→13:55)
[2018-04-03] MEDS ORDERED: CETIRIZINE HCL 10 MG TAB PO SCH (09:00)
[2018-04-03] MEDS ORDERED: PANTOprazole SOD 40 MG TAB PO SCH (09:00)
[2018-04-03] MEDS ORDERED: METHYLPREDNISOLONE IV 60 MG in SYRINGE 0 ML IV SCH (09:00)
[2018-04-03] MEDS ORDERED: NICOTINE 7 MG/24 HR TDSY TD SCH (09:00)
[2018-04-03] MEDS ORDERED: FAMOTIDINE IV INJ 20 MG in SYRINGE 3 ML IV SCH (09:00)
[2018-04-03] MEDS ORDERED: NURSING VERBAL MED ORDER ONE (12:45)
[2018-04-03] MEDS ORDERED: EPP3/2 IM (13:26)
[2018-04-03] MEDS ORDERED: NICO7DIS7 TD (13:26)
--- NOTE | 2018-04-03 15:47 | Progress Note ---
Internal Med Progress Note Date of Service: Apr 03, 2018. Provider Documentation: SUBJECTIVE: Patient denies chest pain or shortness of breath. Patient's blood pressure somewhat elevated after IV fluids. But normotensive now. Denies feeling lightheadedness. Has been ambulatory OBJECTIVE: Exam: General- no distress Eyes- EOMI Neck- midline trachea, no JVD Lungs- clear to auscultation, no wheezing Heart- regular rate Abdomen- soft, nontender, positive bowel sounds Extremities- no edema Neuro- awake and alert, verbal ASSESSMENT & PLAN: Hospital Course and Plans This is a 58-year-old female who presents with bee sting anaphylactic reaction. Bee sting anaphylaxis. Received Benadryl and epinephrine in the field. Received another dose of epinephrine, IV Pepcid and Solu-Medrol in the ER Initially on presentation was unresponsive and ER physician thought to intubate her and start her on epinephrine drip. Intraosseous line was placed when she woke up and was yelling with pain and subsequently continued to be alert and oriented. patient has IV solumedrol and IV pepecid and Zyretc which has resolved the rash of the right arm where presumably the patient was stung and had the anaphylactic reaction. Intraosseous line of the right leg has been removed -patient to be discharged with additional prescription for Epi-pen -patient advised to carry Epi-pen at all times -patient advised to wear long sleeves when outdoors to minimize skin exposure to insect bites -Patient should monitor right leg for bruising or infection at site where the intraosseous line was placed on right leg History of Anxiety and depression. Continue home dose trazodone and Klonopin. History of chronic pain from multiple surgeries. Follow up with primary care doctor for continued management Hypothyroidism. Micheal thyroid disease. Continue levothyroxine. Tobacco use and chronic obstructive pulmonary disease. Continue home inhalers, avoid smoking, nicotine prescription made to help replace the use of tobacco products Main Discharge Instructions Please follow up with primary care doctor -patient to be discharged with additional prescription for Epi-pen -patient advised to carry Epi-pen at all times -patient advised to wear long sleeves when outdoors to minimize skin exposure to insect bites -Patient should monitor right leg for bruising or infection at site where the intraosseous line was placed on right leg Vital Signs: Date Time Temp Pulse Resp B/P (MAP) Pulse Ox O2 Delivery O2 Flow Rate FiO2 7/29/18 15:05 36.7 71 20 145/83 (103) 95 Room Air 04/03/18 13:35 168/86 (113) 04/03/18 12:30 169/106 (127) 04/03/18 11:55 Room Air 04/03/18 11:15 36.6 70 18 171/88 (115) 97 Room Air 04/03/18 11:10 Room Air 04/03/18 07:11 36.7 69 19 155/78 (103) 93 Room Air 04/03/18 04:00 Room Air 04/03/18 03:16 36.6 74 19 153/80 (104) 91 Room Air 04/03/18 00:48 36.7 76 17 168/82 97 Room Air 04/03/18 00:32 36.6 78 21 149/65 96 04/03/18 00:00 78 149/65 96 Nasal Cannula 3.0 04/02/18 23:01 133/68 04/02/18 22:50 80 21 98 Nasal Cannula 4.0 04/02/18 22:45 36.6 147/64 04/02/18 22:35 82 16 96 04/02/18 22:30 147/64 04/02/18 22:26 142/94 04/02/18 22:23 114/80 04/02/18 22:07 149/95 04/02/18 22:05 85 21 100 04/02/18 21:57 96/82 04/02/18 21:52 153/67 92 Room Air 04/02/18 21:50 85 19 100 Room Air 04/02/18 21:46 164/73 04/02/18 21:40 95 Room Air 04/02/18 21:35 82 22 100 Room Air 04/02/18 21:33 78 04/02/18 21:32 163/131 04/02/18 21:20 81 16 99 Ambu-Bag 15.0 Lab Results: Results Past 24 Hours Test 04/02/18 21:53 04/02/18 21:55 04/02/18 22:20 04/03/18 05:15 Range/Units Lactic Acid Level 2.4 1.4 0.4-2.0 mmol/L Ethyl Alcohol mg/dL < 3.0 0-3 mg/dl White Blood Count 9.96 10.25 4.8-10.8 K/uL Red Blood Count 4.26 4.52 4.2-5.4 M/uL Hemoglobin 13.7 14.3 12.0-16.0 g/dL Hematocrit 41.0 43.4 37-47 % Mean Corpuscular Volume 96.2 96.0 80-100 fL Mean Corpuscular Hemoglobin 32.2 31.6 25-34 pg Mean Corpuscular Hemoglobin Concent 33.4 32.9 32-36 g/dl Platelet Count 202 182 130-400 K/uL Mean Platelet Volume 8.9 8.7 7.4-10.4 fL RDW Standard Deviation 45.8 44.7 36.4-46.3 fL RDW Coefficient of Variation 13.2 12.9 11.5-14.5 % Neutrophils % (Manual) 33.4 % Lymphocytes % (Manual) 26.3 % Variant Lymphocytes % (manual) 29.8 % Monocytes % (Manual) 9.6 % Eosinophils % (Manual) 0.9 % Neutrophils # (Manual) 3.33 1.4-6.5 K/uL Total Absolute Neutrophils 3.33 1.4-6.5 K/uL Lymphocytes # (Manual) 2.62 1.2-3.4 K/uL Absolute Variant Lymphocytes 2.97 K/uL Total Absolute Lymphocytes 5.59 1.2-3.4 K/uL Monocytes # (Manual) 0.96 0.11-0.59 K/uL Eosinophils # (Manual) 0.09 0-0.5 K/uL Red Blood Cell Morphology Unremarkable Venous Blood pH 7.33 7.36-7.41 Venous Blood Partial Pressure CO2 59 38.0-50.0 mmHg Venous Blood Partial Pressure O2 36 mmHg Venous Blood HCO3 30 mmol/L Venous Blood Oxygen Saturation 66.1 % Venous Blood Base Excess 2.8 mEq/L Sodium Level 140 141 136-145 mmol/L Potassium Level 3.4 3.5-5.1 mmol/L Chloride Level 108 110 98-107 mmol/L Carbon Dioxide Level 26 29 21-32 mmol/L Anion Gap 7.0 2.0 3-11 mmol/L Blood Urea Nitrogen 13 13 7-18 mg/dl Creatinine 0.89 0.89 0.60-1.20 mg/dl Est Creatinine Clear Calc Drug Dose 97.5 95.4 ml/min Estimated GFR () 81.6 81.6 Estimated GFR (Non- 70.4 70.4 BUN/Creatinine Ratio 14.3 14.8 10-20 Random Glucose 143 147 70-99 mg/dl Calcium Level 8.4 8.5 8.5-10.1 mg/dl Total Bilirubin 0.4 0.2-1 mg/dl Direct Bilirubin 0.1 0-0.2 mg/dl Aspartate Amino Transf (AST/SGOT) 12 15-37 U/L Alanine Aminotransferase (ALT/SGPT) 15 12-78 U/L Alkaline Phosphatase 102 45-117 U/L Ammonia 13.6 11-32 umol/L Troponin I < 0.015 0-0.045 ng/ml Total Protein 6.8 6.4-8.2 gm/dl Albumin 3.6 3.4-5.0 gm/dl Lipase 63 73-393 U/L Human Chorionic Gonadotropin, Quant 3 mIU/mL Urine Color YELLOW Urine Appearance CLEAR CLEAR Urine pH 5.0 4.5-7.5 Urine Specific Fletcher 1.021 1.000-1.030 Urine Protein NEG NEG Urine Glucose (UA) NEG NEG Urine Ketones TRACE NEG Urine Occult Blood NEG NEG Urine Nitrite NEG NEG Urine Bilirubin NEG NEG Urine Urobilinogen NEG NEG Urine Leukocyte Esterase NEG NEG Urine Opiates Screen POS NEG Urine Methadone, Qualitative NEG NEG Urine Barbiturates POS NEG Urine Phencyclidine (PCP) Level NEG NEG Ur Amphetamine/Methamphetamine NEG NEG MDMA (Ecstasy) Screen POS NEG Urine Benzodiazepines Screen POS NEG Urine Cocaine Metabolite NEG NEG Urine Marijuana (THC) NEG NEG Neutrophils (%) (Auto) 91.5 % Lymphocytes (%) (Auto) 6.9 % Monocytes (%) (Auto) 1.3 % Eosinophils (%) (Auto) 0.0 % Basophils (%) (Auto) 0.1 % Neutrophils # (Auto) 9.38 1.4-6.5 K/uL Lymphocytes # (Auto) 0.71 1.2-3.4 K/uL Monocytes # (Auto) 0.13 0.11-0.59 K/uL Eosinophils # (Auto) 0.00 0-0.5 K/uL Basophils # (Auto) 0.01 0-0.2 K/uL Immature Granulocyte % (Auto) 0.2 % Immature Granulocyte # (Auto) 0.02 0.00-0.02 K/uL Magnesium Level 1.8-2.4 mg/dl Test 04/03/18 06:42 Range/Units Potassium Level 4.2 3.5-5.1 mmol/L Magnesium Level 2.2 1.8-2.4 mg/dl
--- NOTE | 2018-04-03 16:07 | Discharge Instructions ---
Discharge Instructions Date of Service Apr 03, 2018. Admission Reason for Admission: Anaphylaxis, Bee Sting Allergy Discharge Discharge Diagnosis / Problem: Bee sting anaphylaxis Discharge Goals Goal(s): Improve disease control Activity Recommendations Activity Limitations: per Instructions/Follow-up section . Instructions / Follow-Up Instructions / Follow-Up Hospital Course and Plans This is a 58-year-old female who presents with bee sting anaphylactic reaction. Bee sting anaphylaxis. Received Benadryl and epinephrine in the field. Received another dose of epinephrine, IV Pepcid and Solu-Medrol in the ER Initially on presentation was unresponsive and ER physician thought to intubate her and start her on epinephrine drip. Intraosseous line was placed when she woke up and was yelling with pain and subsequently continued to be alert and oriented. patient has IV solumedrol and IV pepecid and Zyretc which has resolved the rash of the right arm where presumably the patient was stung and had the anaphylactic reaction. Intraosseous line of the right leg has been removed -patient to be discharged with additional prescription for Epi-pen -patient advised to carry Epi-pen at all times -patient advised to wear long sleeves when outdoors to minimize skin exposure to insect bites -Patient should monitor right leg for bruising or infection at site where the intraosseous line was placed on right leg History of Anxiety and depression. Continue home dose trazodone and Klonopin. History of chronic pain from multiple surgeries. Follow up with primary care doctor for continued management Hypothyroidism. Micheal thyroid disease. Continue levothyroxine. Tobacco use and chronic obstructive pulmonary disease. Continue home inhalers, avoid smoking, nicotine prescription made to help replace the use of tobacco products Main Discharge Instructions Please follow up with primary care doctor -patient to be discharged with additional prescription for Epi-pen -patient advised to carry Epi-pen at all times -patient advised to wear long sleeves when outdoors to minimize skin exposure to insect bites -Patient should monitor right leg for bruising or infection at site where the intraosseous line was placed on right leg Current Hospital Diet Patient's current hospital diet: AHA Diet (Heart Healthy) Discharge Diet Recommended Diet: AHA Diet (Heart Healthy) Pending Studies Studies pending at discharge: no Laboratory Results 04/03/18 05:15 Red Blood Count 4.52, Mean Corpuscular Volume 96.0, Mean Corpuscular Hemoglobin 31.6, Mean Corpuscular Hemoglobin Concent 32.9, Mean Platelet Volume 8.7, Neutrophils (%) (Auto) 91.5, Lymphocytes (%) (Auto) 6.9, Monocytes (%) (Auto) 1.3, Eosinophils (%) (Auto) 0.0, Basophils (%) (Auto) 0.1, Neutrophils # (Auto) 9.38, Lymphocytes # (Auto) 0.71, Monocytes # (Auto) 0.13, Eosinophils # (Auto) 0.00, Basophils # (Auto) 0.01 04/03/18 05:15 04/03/18 06:42 Test 04/02/18 21:53 04/02/18 21:55 04/02/18 22:20 04/03/18 05:15 Ethyl Alcohol mg/dL < 3.0 mg/dl (0-3) Neutrophils % (Manual) 33.4 % Lymphocytes % (Manual) 26.3 % Variant Lymphocytes % (manual) 29.8 % Monocytes % (Manual) 9.6 % Eosinophils % (Manual) 0.9 % Neutrophils # (Manual) 3.33 K/uL (1.4-6.5) Total Absolute Neutrophils 3.33 K/uL (1.4-6.5) Lymphocytes # (Manual) 2.62 K/uL (1.2-3.4) Absolute Variant Lymphocytes 2.97 K/uL Total Absolute Lymphocytes 5.59 K/uL (1.2-3.4) Monocytes # (Manual) 0.96 K/uL (0.11-0.59) Eosinophils # (Manual) 0.09 K/uL (0-0.5) Red Blood Cell Morphology Unremarkable Venous Blood pH 7.33 (7.36-7.41) Venous Blood Partial Pressure CO2 59 mmHg (38.0-50.0) Venous Blood Partial Pressure O2 36 mmHg Venous Blood HCO3 30 mmol/L Venous Blood Oxygen Saturation 66.1 % Venous Blood Base Excess 2.8 mEq/L Total Bilirubin 0.4 mg/dl (0.2-1) Direct Bilirubin 0.1 mg/dl (0-0.2) Aspartate Amino Transf (AST/SGOT) 12 U/L (15-37) Alanine Aminotransferase (ALT/SGPT) 15 U/L (12-78) Alkaline Phosphatase 102 U/L (45-117) Ammonia 13.6 umol/L (11-32) Troponin I < 0.015 ng/ml (0-0.045) Total Protein 6.8 gm/dl (6.4-8.2) Albumin 3.6 gm/dl (3.4-5.0) Lipase 63 U/L (73-393) Human Chorionic Gonadotropin, Quant 3 mIU/mL Urine Color YELLOW Urine Appearance CLEAR (CLEAR) Urine pH 5.0 (4.5-7.5) Urine Specific Jerome 1.021 (1.000-1.030) Urine Protein NEG (NEG) Urine Glucose (UA) NEG (NEG) Urine Ketones TRACE (NEG) Urine Occult Blood NEG (NEG) Urine Nitrite NEG (NEG) Urine Bilirubin NEG (NEG) Urine Urobilinogen NEG (NEG) Urine Leukocyte Esterase NEG (NEG) Urine Opiates Screen POS (NEG) Urine Methadone, Qualitative NEG (NEG) Urine Barbiturates POS (NEG) Urine Phencyclidine (PCP) Level NEG (NEG) Ur Amphetamine/Methamphetamine NEG (NEG) MDMA (Ecstasy) Screen POS (NEG) Urine Benzodiazepines Screen POS (NEG) Urine Cocaine Metabolite NEG (NEG) Urine Marijuana (THC) NEG (NEG) White Blood Count 10.25 K/uL (4.8-10.8) Red Blood Count 4.52 M/uL (4.2-5.4) Hemoglobin 14.3 g/dL (12.0-16.0) Hematocrit 43.4 % (37-47) Mean Corpuscular Volume 96.0 fL (80-100) Mean Corpuscular Hemoglobin 31.6 pg (25-34) Mean Corpuscular Hemoglobin Concent 32.9 g/dl (32-36) Platelet Count 182 K/uL (130-400) Mean Platelet Volume 8.7 fL (7.4-10.4) Neutrophils (%) (Auto) 91.5 % Lymphocytes (%) (Auto) 6.9 % Monocytes (%) (Auto) 1.3 % Eosinophils (%) (Auto) 0.0 % Basophils (%) (Auto) 0.1 % Neutrophils # (Auto) 9.38 K/uL (1.4-6.5) Lymphocytes # (Auto) 0.71 K/uL (1.2-3.4) Monocytes # (Auto) 0.13 K/uL (0.11-0.59) Eosinophils # (Auto) 0.00 K/uL (0-0.5) Basophils # (Auto) 0.01 K/uL (0-0.2) RDW Standard Deviation 44.7 fL (36.4-46.3) RDW Coefficient of Variation 12.9 % (11.5-14.5) Immature Granulocyte % (Auto) 0.2 % Immature Granulocyte # (Auto) 0.02 K/uL (0.00-0.02) Anion Gap 2.0 mmol/L (3-11) Est Creatinine Clear Calc Drug Dose 95.4 ml/min Estimated GFR () 81.6 Estimated GFR (Non- 70.4 BUN/Creatinine Ratio 14.8 (10-20) Lactic Acid Level 1.4 mmol/L (0.4-2.0) Calcium Level 8.5 mg/dl (8.5-10.1) Test 04/03/18 06:42 Magnesium Level 2.2 mg/dl (1.8-2.4) Medical Emergencies . Who to Call and When: Medical Emergencies: If at any time you feel your situation is an emergency, please call 911 immediately. . Non-Emergent Contact Non-Emergency issues call your: Primary Care Provider Call Non-Emergent contact if: you have any medication questions . . "Provider Documentation" section prepared by [facility] [place]. .
--- NOTE | 2018-04-03 16:08 | Discharge Summary ---
Discharge Summary Date of Service Apr 03, 2018. Discharge Summary Admission Date: Apr 02, 2018 at 23:50 Discharge Date: Apr 03, 2018 Discharge Disposition: Home Principal Diagnosis: Bee sting anaphylaxis Secondary Diagnoses/Problems: Other chronic pain Medication Reconciliation New Medications: Epinephrine (Epipen) 0.3 Mg/0.3 Ml Inj 0.3 MG IM UD for anaphylaxis for 30 Days, #1 PEN 1 Refill Nicotine (Nicoderm Cq 7 Mg Patch) 7 Mg/24 Hr Dis 1 PATCH TD QAM for 30 Days, #30 PATCH Continued Medications: Clonazepam (Klonopin) 2 Mg Tab 2 MG PO TID Gabapentin (Neurontin) 300 Mg Cap 300 MG PO TID, CAP Hydrocodone/Acetaminophen 10MG/325MG (Cedar 10MG/325MG) Tab 1 TAB PO Q4H PRN for Pain, TAB Levothyroxine Sodium (Synthroid) 50 Mcg Tab 50 MCG PO DAILY, TAB Methocarbamol (Robaxin) 750 Mg Tab 750 MG PO BID PRN for Muscle Spasm Omeprazole (Prilosec) 40 Mg Cap 40 MG PO DAILY Trazodone Hcl (Trazodone) 100 Mg Tab 200 MG PO HS Admission Information HPI (per Admitting provider): CHIEF COMPLAINT: Anaphylactic reaction from bee sting. HISTORY OF PRESENT ILLNESS: This 58-year-old female with past medical history significant for hypothyroidism, COPD,chronic pain, history of Lyme disease and [place] disease at that time she was put on temporary pacemaker. History of anxiety, GERD, osteoarthrosis, presents because of bee sting and possible anaphylactic reaction. The patient was in [facility] today listening to band when she was being bit with bee on her right wrist and she developed pain and not feeling well and medics who were nearby came in. Initially, she was responsive, alert and oriented and blood pressure was okay, but suddenly she became unresponsive. The patient was given epinephrine. At that time they could not get the blood pressure, and she was brought in to the ER. She was still unresponsive when she came to the ER and still could not get blood pressure and another dose of epinephrine was given and the ER physician does not know what was happening and was preparing himself to intubate her and start her on epinephrine drip and IO was placed. When the IO was placed, the patient started to yell and the patient woke up and since then she was awake and alert and she was able to talk . And her vitals stabilized.Er physician also talked to daughter on phone and daughter told that the patient has a psychiatric history and was in [place] and daughter also reported the patient has history of faking it for attention. Currently, the patient is alert and awake and oriented x3. Friend is in the room who was with her at the [facility]. The patient complaints of some nausea, abdominal discomfort. No runny nose, no earache, no chest pain, no shortness of breath, no cough, no recent fever, chills. Normal bowel and bladder movements. The patient says she has pain at the interosseous line and she has several surgeries in the right leg and she is complaining of chronic headaches and neck pain and backache and requests for pain medication. The patient says she takes pain medications at home. Currently alert and oriented, hemodynamically stable. ALLERGIES: TO BEE STINGS, CODEINE, IBUPROFEN. PAST MEDICAL HISTORY: As mentioned above. PAST SURGICAL HISTORY: Several bilateral knee surgeries, spacers placed in her neck, tonsillectomy, adenoidectomy, appendectomy. MEDICATIONS: The patient is on Klonopin 2 mg p.o. t.i.d., Cedar 10/325 mg one tablet p.o. q. 4 hours p.r.n. for pain, levothyroxine 50 mcg p.o. daily, Robaxin 750 mg p.o. b.i.d. p.r.n. for muscle spasm, Prilosec 40 mg p.o. daily, trazodone 200 mg p.o. at bedtime. FAMILY HISTORY: Mother had lung cancer. Father had [place]. SOCIAL HISTORY: Smokes 1 pack a day for several years. No alcohol use, no drug use. REVIEW OF SYMPTOMS: As per HPI. Rest of review of symptoms negative. Physical Exam (per Admitting): PHYSICAL EXAMINATION: GENERAL: The patient is obese, not in distress. VITAL SIGNS: Temperature 36.6, pulse 60-80, respiratory rate 21, blood pressure 138/60, oxygen 98% on 4 L. HEENT: No pallor, no icterus. Pupils equal, round, and reactive to light. NECK: No JVD, no neck masses, no carotid bruit. CARDIOVASCULAR: S1, S2 heard, regular rate and rhythm, no murmur, no gallop. RESPIRATORY SYSTEM: Clear to auscultation. No wheezing, no crackles. ABDOMEN: Soft, bowel sounds present, nontender. No distention. CENTRAL NERVOUS SYSTEM: Cranial nerves II-XII grossly intact. Nonfocal. EXTREMITIES: No edema, no erythema seen. Hospital Course Hospital Course and Plans This is a 58-year-old female who presents with bee sting anaphylactic reaction. Bee sting anaphylaxis. Received Benadryl and epinephrine in the field. Received another dose of epinephrine, IV Pepcid and Solu-Medrol in the ER Initially on presentation was unresponsive and ER physician thought to intubate her and start her on epinephrine drip. Intraosseous line was placed when she woke up and was yelling with pain and subsequently continued to be alert and oriented. patient has IV solumedrol and IV pepecid and Zyretc which has resolved the rash of the right arm where presumably the patient was stung and had the anaphylactic reaction. Intraosseous line of the right leg has been removed -patient to be discharged with additional prescription for Epi-pen -patient advised to carry Epi-pen at all times -patient advised to wear long sleeves when outdoors to minimize skin exposure to insect bites -Patient should monitor right leg for bruising or infection at site where the intraosseous line was placed on right leg History of Anxiety and depression. Continue home dose trazodone and Klonopin. History of chronic pain from multiple surgeries. Follow up with primary care doctor for continued management Hypothyroidism. Micheal thyroid disease. Continue levothyroxine. Tobacco use and chronic obstructive pulmonary disease. Continue home inhalers, avoid smoking, nicotine prescription made to help replace the use of tobacco products Main Discharge Instructions Please follow up with primary care doctor -patient to be discharged with additional prescription for Epi-pen -patient advised to carry Epi-pen at all times -patient advised to wear long sleeves when outdoors to minimize skin exposure to insect bites -Patient should monitor right leg for bruising or infection at site where the intraosseous line was placed on right leg Total time spent on discharge = 40 minutes This includes examination of the patient, discharge planning, medication reconciliation, and communication with other providers. Discharge Instructions see above
[2018-04-03] MEDS ORDERED: ETOMIDATE 2 MG/ML 20 ML VIAL IV ONE (17:30)
[2018-04-03] MEDS ORDERED: LIDOCAINE 2% 20 MG/ML 5ML SYR IV ONE (17:30)
[2018-04-03] MEDS ORDERED: ROCURONIUM BROMIDE 10 MG/ML 10 ML VIAL IV ONE (17:30)
[2018-04-03] MEDS ORDERED: TRAZODONE HCL 100 MG TAB PO SCH (21:00)
== END 2018-04-03 17:31 | disposition home or self-care (01) | DRG 918 ==
LOC: EDBD 21:20 → C.EDB 21:58 → C.2T 23:50 → ENRESERV 04-03 00:14 → C.MS4W 04-03 11:13
PROVIDERS: ADMIT Internal Medicine; ATTEND Hospitalist
PROC: 0YHH33Z Insertion of Infusion Device into Right Lower Leg, Percutaneous Approach (ICD-10-PCS; principal; 2018-04-02)
DX: T63.441A Toxic effect of venom of bees, accidental (unintentional), initial encounter (principal); J44.9 Chronic obstructive pulmonary disease, unspecified; F32.9 Major depressive disorder, single episode, unspecified; F41.9 Anxiety disorder, unspecified; G89.29 Other chronic pain; E06.3 Autoimmune thyroiditis; F17.200 Nicotine dependence, unspecified, uncomplicated; Z79.899 Other long term (current) drug therapy; Z91.030 Bee allergy status; X58.XXXA Exposure to other specified factors, initial encounter

== ENCOUNTER 2019-01-31 21:00 | Inpatient (IN) ==
[2019-01-31] MEDS ORDERED: ACETAMINOPHEN 1,000 MG/100 ML VIAL IV STA (21:41)
[2019-01-31] MEDS ORDERED: DEXAMETHASONE SOD PHOSPHATE 10 MG in SYRINGE 0 ML IV STA (21:41)
[2019-01-31] MEDS ORDERED: ALBUT/IPRATROP 3MG/0.5MG NEB 3 ML VIAL NEB STA (21:41)
[2019-01-31] MEDS ORDERED: DEXAMETHASONE **PF** INJ 10 MG/ML VIAL ONE (22:03)
[2019-01-31 22:18] LABS: Basophils # (auto) 0.02 K/uL (0-0.2); Basophils % (auto) 0.2 %; Eosinophils # (auto) 0.11 K/uL (0-0.5); Eosinophils % (auto) 1.3 %; Hematocrit (blood only) 42.3 % (37-47); Hemoglobin 14.5 g/dL (12.0-16.0); Immature Granulocytes # (auto) 0.01 K/uL (0.00-0.02); Immature Granulocytes % (auto) 0.1 %; Lymphocytes # (auto) 2.57 K/uL (1.2-3.4); Lymphocytes % (auto) 31.5 %; Mean Corpuscular Hgb Conc 34.3 g/dL (32-36); Mean Corpuscular Volume 93.6 fL (80-100); Mean Platelet Volume 8.4 fL (7.4-10.4); Monocytes # (auto) 0.55 K/uL (0.11-0.59); Monocytes % (auto) 6.7 %; Neutrophils # (auto) 4.91 K/uL (1.4-6.5); Neutrophils % (auto) 60.2 %; Platelet Count 179 K/uL (130-400); RDW Coefficient of Variation 13.2 % (11.5-14.5); RDW Standard Deviation 44.9 fL (36.4-46.3); Red Blood Count 4.52 M/uL (4.2-5.4); White Blood Count 8.17 K/uL (4.8-10.8)
--- NOTE | 2019-01-31 22:27 | XRay Report ---
XR chest 1V portable CLINICAL HISTORY: Multiple falls. COMPARISON STUDY: Chest radiograph April 02, 2018. FINDINGS: No pneumothorax or pleural effusion is noted. No airspace opacities are present. Cardiomedi astinal silhouette is unremarkable. Postoperative findings within the cervical spine are noted. IMPRESSION: No acute cardiopulmonary findings. Electronically signed by: Gagandeep Haile M.D. 01/31/2019 10:26 PM
[2019-01-31 22:29] LABS: Prothrombin Time 10.1 Seconds (9.0-12.0)
--- NOTE | 2019-01-31 22:29 | XRay Report ---
XR hip RT 2-3V w pelvis CLINICAL HISTORY: fall pain, swelling, fall COMPARISON: Pelvis and right hip radiographs June 25, 2017. FINDINGS: Sacroiliac joints and symphysis pubis are intact. There is no acute fracture within the pe lvis or hips. Irregularity of the left iliac bone is unchanged. This may be related to old injury. Mi ld osteoarthritis within the hips. IMPRESSION: No acute fracture within the pelvis or hips. Electronically signed by: Gagandeep Haile M.D. 01/31/2019 10:28 PM
--- NOTE | 2019-01-31 22:31 | XRay Report ---
XR femur RT 2V routine CLINICAL HISTORY: fall pain, swelling, fall COMPARISON: Right knee radiographs June 25, 2017. FINDINGS: No acute fracture of the right femur is noted. Postoperative findings within the medial ti bial plateau are noted. There is moderate to severe right knee osteoarthritis. A small right knee kenneth nt effusion is noted. IMPRESSION: 1. No acute fracture of the right femur. 2. Moderate to severe right knee osteoarthritis. Small right knee joint effusion. Electronically signed by: Gagandeep Haile M.D. 01/31/2019 10:29 PM
--- NOTE | 2019-01-31 22:32 | XRay Report ---
XR knee RT 2V routine CLINICAL HISTORY: fall pain, swelling, fall COMPARISON: Right knee radiographs June 25, 2017. FINDINGS: Postoperative findings within the medial tibial plateau are noted. There is moderate to se hernandez right knee osteoarthritis. A small right knee joint effusion is noted. Chronic deformity of the proximal right tibia is unchanged. IMPRESSION: 1. No acute fracture. 2. Moderate to severe right knee osteoarthritis. 3. Postoperative findings within the proximal right tibia. Electronically signed by: Gagandeep Haile M.D. 01/31/2019 10:31 PM
--- NOTE | 2019-01-31 22:33 | XRay Report ---
XR tibia fibula RT 2V CLINICAL HISTORY: fall pain, swelling, fall COMPARISON: Right knee radiographs June 25, 2017. FINDINGS: Postoperative findings within the proximal right tibia are noted. Right knee osteoarthriti s is present. There is moderate posterior and plantar calcaneal spurring. There is no acute fracture of the right tibia or fibula. IMPRESSION: No acute fracture of the right tibia or fibula. Electronically signed by: Gagandeep Haile M.D. 01/31/2019 10:32 PM
--- NOTE | 2019-01-31 22:34 | XRay Report ---
XR ankle RT min 3V routine CLINICAL HISTORY: fall pain, swelling, fall COMPARISON: None FINDINGS: Alignment of the right ankle is anatomic. There is no acute fracture. Moderate posterior a nd plantar calcaneal spurring is noted. There is right midfoot osteoarthritis. Right ankle soft tissu e swelling is present. IMPRESSION: 1. No acute fracture or dislocation within the right ankle. 2. Right ankle soft tissue swelling. 3. Moderate posterior and plantar calcaneal spurring. Electronically signed by: Gagandeep Haile M.D. 01/31/2019 10:33 PM
[2019-01-31 22:35] LABS: Alanine Aminotransferase 16 U/L (12-78); Albumin Level 3.5 gm/dl (3.4-5.0); Aspartate Aminotransferase 10 U/L (15-37); BUN Creatinine Ratio 16.6 (10-20); Bilirubin Direct < 0.1 mg/dl (0-0.2); Blood Urea Nitrogen 16 mg/dl (7-18); Calcium 9.5 mg/dl (8.5-10.1); Carbon Dioxide 31 mmol/L (21-32); Chloride 108 mmol/L (98-107); Est GFR (African American) 73.6; Est GFR (Non-African American) 63.5; Glucose 145 mg/dl (70-99); Magnesium 2.1 mg/dl (1.8-2.4); Potassium 3.5 mmol/L (3.5-5.1); Sodium 145 mmol/L (136-145)
--- NOTE | 2019-01-31 22:36 | XRay Report ---
XR foot RT 2V CLINICAL HISTORY: fall pain, swelling, fall COMPARISON: None FINDINGS: Tarsometatarsal joints are intact. There is moderate posterior and plantar calcaneal spurr ing. No acute fracture within the right foot is noted. Right foot soft tissue swelling is present. Th ere is mild to moderate osteoarthritis within multiple articulations of the right foot. IMPRESSION: No acute fracture or dislocation within the right foot. Electronically signed by: Gagandeep Haile M.D. 01/31/2019 10:34 PM
[2019-01-31 22:38] LABS: Alkaline Phosphatase 118 U/L (45-117); Bilirubin,Total 0.3 mg/dl (0.2-1); Globulin 3.6 gm/dl (2.5-4.0); NT Pro B Type Natriuretic Pept 36 pg/ml (0-900); Phosphorus 2.6 mg/dl (2.5-4.9); Total Protein 7.1 gm/dl (6.4-8.2); Troponin I < 0.015 ng/ml (0-0.045)
[2019-01-31] MEDS ORDERED: ALBUT/IPRATROP 3MG/0.5MG NEB 3 ML VIAL NEB ONE (23:10)
[2019-01-31] MEDS ORDERED: OXYCODONE HCL IR 5 MG TAB (IMMEDIATE RELEASE) PO STA (23:10)
[2019-01-31] MEDS ORDERED: AZITHROMYCIN 250 MG TAB PO ONE (23:11)
--- NOTE | 2019-01-31 23:20 | Emergency Department Note ---
Entered by Bryan Tan acting as a scribe for Josh Zepeda MD History of Present Illness General Chief complaint: Chest Pain Stated complaint: CHEST PAIN, VOMITING, FELL Time Seen by Provider: 01/31/19 21:28 Source: patient History of Present Illness Onset (ago): day(s) 5 Location: lower extremity (falls) Pain Consistency: + other (episodes) Maximum Pain Intensity: 10 Exacerbated By: + other (right foot and right knee pain) Associated symptoms: + chest pain (intermittent chest pressure), + nausea/vomiting and + other (abdominal pain) The patient is a 58 year old F who presents to the Emergency Room with complaints of episodes of falls that started 5 days ago. She notes that for the past 5 days she has been falling 2-3 times a day. She adds that the first time she fell, she tripped in her garage. She states that she injured her right foot and knee from the fall. She notes that her subsequent falls have been due to her pain. She states that she has an appointment with her PCP on February 09. 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 She states that she is currently experiencing intermittent chest pressure. She adds that her heart has been racing at a rate of 280 occasionally. She notes that she has a history of A fib, heart attacks, smoking, and Lymes disease. She denies being on a blood thinner. She adds that she takes 40 mgs Lasix. She denies gaining any water weight. She also denies having a history of COPD but is a daily smoker. She notes that she is currently experiencing vomiting and abdominal pain. Home Medications Home Medications Medication Instructions Recorded Confirmed Type clonazepam 2 mg PO TID 01/31/19 01/31/19 History diltiazem HCl 240 mg PO QAM 01/31/19 01/31/19 History epinephrine [EpiPen] 0.3 mg IM DIRECTED PRN 01/31/19 01/31/19 History gabapentin 300 mg PO TID 01/31/19 01/31/19 History hydrocodone-acetaminophen 1 tab PO Q6H PRN 01/31/19 01/31/19 History levothyroxine 50 mcg PO DAILY 01/31/19 01/31/19 History methocarbamol [Robaxin-750] 750 mg PO BID PRN 01/31/19 01/31/19 History omeprazole 40 mg PO BID 01/31/19 01/31/19 History trazodone 200 mg PO HS 01/31/19 01/31/19 History Allergies Allergy/AdvReac Type Severity Reaction Status Date / Time bee venom protein (honey bee) Allergy Severe ANAPHYLAXIS Verified 01/31/19 22:59 codeine Allergy Severe DIFFICULTY Verified 01/31/19 22:59 BREATHING ibuprofen Allergy Unknown swelling Verified 01/31/19 22:59 Past Med/Surg History Medical History Lyme disease (Chronic) Heart attack (Chronic) COPD (chronic obstructive pulmonary disease) (Chronic) Family History Other No significant family history Social History Preferred Language: Pashto Feels Safe at Home: Yes Smoking Status: Current every day smoker Review of Systems See HPI for pertinent positives & negatives. and A total of 10 systems reviewed and were otherwise negative Physical Exam Vital Signs Vital Signs - 24 hr 01/31/19 21:04 01/31/19 21:54 01/31/19 22:32 Temperature 36.4 C L Temperature Source Oral Sepsis Recent Fever Within 48 Hours No Sepsis New/Unexplained Change in Mental Status No Sepsis Action Taken by Nursing No Action Required Pulse Rate 78 73 Pulse Rate [Finger] 78 83 Pulse Rate from SpO2 Sensor 74 Respiratory Rate 24 16 23 Respiratory Effort / Characteristics Non-Labored Spontaneous Blood Pressure 125/80 137/60 Blood Pressure [Left Arm] 137/60 Blood Pressure Mean 95 85 Blood Pressure Mean [Left Arm] 85 Pulse Oximetry 93 94 98 Oxygen Delivery Method Room Air Room Air Oxygen Flow Rate 01/31/19 22:52 01/31/19 22:53 01/31/19 22:55 Temperature Temperature Source Sepsis Recent Fever Within 48 Hours Sepsis New/Unexplained Change in Mental Status Sepsis Action Taken by Nursing Pulse Rate Pulse Rate [Finger] Pulse Rate from SpO2 Sensor Respiratory Rate Respiratory Effort / Characteristics Blood Pressure Blood Pressure [Left Arm] Blood Pressure Mean Blood Pressure Mean [Left Arm] Pulse Oximetry 90 87 L 93 Oxygen Delivery Method Room Air Room Air Nasal Cannula Oxygen Flow Rate 2 01/31/19 23:00 01/31/19 23:01 01/31/19 23:30 Temperature Temperature Source Sepsis Recent Fever Within 48 Hours Sepsis New/Unexplained Change in Mental Status Sepsis Action Taken by Nursing Pulse Rate 78 76 74 Pulse Rate [Finger] Pulse Rate from SpO2 Sensor 78 76 75 Respiratory Rate 23 22 20 Respiratory Effort / Characteristics Blood Pressure 136/80 Blood Pressure [Left Arm] Blood Pressure Mean 98 Blood Pressure Mean [Left Arm] Pulse Oximetry 91 91 95 Oxygen Delivery Method Oxygen Flow Rate 02/01/19 00:00 02/01/19 00:30 Temperature Temperature Source Sepsis Recent Fever Within 48 Hours Sepsis New/Unexplained Change in Mental Status Sepsis Action Taken by Nursing Pulse Rate 55 L 78 Pulse Rate [Finger] 58 L Pulse Rate from SpO2 Sensor 54 L 78 Respiratory Rate 15 22 Respiratory Effort / Characteristics Non-Labored Spontaneous Blood Pressure Blood Pressure [Left Arm] Blood Pressure Mean Blood Pressure Mean [Left Arm] Pulse Oximetry 98 99 Oxygen Delivery Method Nebulizer Nebulizer Oxygen Flow Rate GENERAL: Awake, alert, uncomfortable appearing, no distress. BMI: 40.0 kg/m^2 HENT: Normocephalic, atraumatic. TM's normal. Oropharynx unremarkable. EYES: PERRL. EOMI. Normal conjunctiva. Sclera non-icteric. NECK: Supple. No nuchal rigidity. FROM. No JVD or bruit. RESPIRATORY: Scattered wheezes, otherwise clear. CARDIAC: RRR. ABDOMEN: Soft, non distended. No tenderness to palpation. No rebound or guarding. No masses. RECTAL: Deferred. MUSCULOSKELETAL: Unremarkable. 1+ bilateral lower extremity edema. No discoloration. Gross motor strength symmetric. Tenderness throughout right lower extremity. Minimal hip discomfort with internal and external rotation, distal PMS intact. NEURO: Normal sensorium. No sensory or motor deficits noted. SKIN: No rash or jaundice noted. LYMPH: No adenopathy Course 8: The patient was evaluated in room C9. A complete history and physical exam was performed. 2240: I re-checked the patient and updated her on her test results. Administered Medications Ioversol (Optiray 320 125ml) 125 ml IV ONCE PRN PRN Reason: Interaction Checking Stop: 02/04/19 23:53 Last Admin: 01/31/19 23:54 Dose: 118 ml Documented by: [id number] Discontinued Medications Albuterol (Duoneb) 3 ml NEB NOW STA Stop: 01/31/19 21:42 Last Admin: 01/31/19 21:52 Dose: 3 ml Documented by: [id number] Albuterol (Duoneb) 12 ml NEB ONE ONE Stop: 01/31/19 23:11 Last Admin: 01/31/19 23:57 Dose: 12 ml Documented by: [id number] Azithromycin (Zithromax) 500 mg PO NOW ONE Stop: 01/31/19 23:12 Last Admin: 01/31/19 23:31 Dose: 500 mg Documented by: [id number] Dexamethasone Sodium Phosphate (Decadron Pf) Confirm Administered Dose 10 mg .ROUTE .STK-MED ONE Stop: 01/31/19 22:04 Last Admin: 01/31/19 22:26 Dose: 10 mg Documented by: [id number] Acetaminophen (Ofirmev) 1,000 mg in 100 mls @ 400 mls/hr IV NOW STA Stop: 01/31/19 21:55 Last Infusion: 01/31/19 23:04 Dose: 0 mls/hr Documented by: [id number] Admin: 01/31/19 22:26 Dose: 400 mls/hr Documented by: [id number] Dexamethasone Sodium Phosphate (10 mg/ Syringe) 2.5 mls @ 1 mls/min IV NOW STA Stop: 01/31/19 21:43 Last Admin: 01/31/19 22:27 Dose: Not Given Documented by: [id number] Oxycodone HCl (Roxicodone Immediate Rel) 5 mg PO NOW STA Stop: 01/31/19 23:11 Last Admin: 01/31/19 23:31 Dose: 5 mg Documented by: [id number] Medical Decision Making Differential Diagnosis Differential diagnosis includes: infections, reactive airway disease, pneumonia, pneumothorax, COPD, CHF, cardiac ischemia, pulmonary embolism, musculoskeletal, gastrointestinal, as well as others were entertained. Medical Records Attestation: I reviewed the patient's medical records. Home Medications Current Medication List: was personally reviewed by me Laboratory Data Attestation: I reviewed the patient's lab results. Result diagrams: 01/31/19 21:45 01/31/19 21:45 Lab Results 01/31/19 01/31/19 01/31/19 Range/Units 21:45 21:45 21:45 WBC 8.17 (4.8-10.8) K/uL RBC 4.52 (4.2-5.4) M/uL Hgb 14.5 (12.0-16.0) g/dL Hct 42.3 (37-47) % MCV 93.6 (80-100) fL MCH 32.1 (25-34) pg MCHC 34.3 (32-36) g/dL RDW Std Deviation 44.9 (36.4-46.3) fL RDW Coeff of Rajiv 13.2 (11.5-14.5) % Plt Count 179 (130-400) K/uL MPV 8.4 (7.4-10.4) fL Immature Gran % (Auto) 0.1 % Neut % (Auto) 60.2 % Lymph % (Auto) 31.5 % [facility] % (Auto) 6.7 % Eos % (Auto) 1.3 % Baso % (Auto) 0.2 % Immature Gran # (Auto) 0.01 (0.00-0.02) K/uL Neut # (Auto) 4.91 (1.4-6.5) K/uL Lymph # (Auto) 2.57 (1.2-3.4) K/uL [facility] # (Auto) 0.55 (0.11-0.59) K/uL Eos # (Auto) 0.11 (0-0.5) K/uL Baso # (Auto) 0.02 (0-0.2) K/uL PT 10.1 (9.0-12.0) Seconds INR 1.0 (0.9-1.1) Sodium 145 (136-145) mmol/L Potassium 3.5 (3.5-5.1) mmol/L Chloride 108 H (98-107) mmol/L Carbon Dioxide 31 (21-32) mmol/L Anion Gap 6.0 (3-11) BUN 16 (7-18) mg/dl Creatinine 0.97 (0.6-1.2) mg/dl Est Cr Clr Drug Dosing 92.0 ml/min Est GFR ( Amer) 73.6 Est GFR (Non-Af Amer) 63.5 BUN/Creatinine Ratio 16.6 (10-20) Glucose 145 H (70-99) mg/dl Calcium 9.5 (8.5-10.1) mg/dl Phosphorus 2.6 (2.5-4.9) mg/dl Magnesium 2.1 (1.8-2.4) mg/dl Total Bilirubin 0.3 (0.2-1) mg/dl Direct Bilirubin < 0.1 (0-0.2) mg/dl AST 10 L (15-37) U/L ALT 16 (12-78) U/L Alkaline Phosphatase 118 H (45-117) U/L Troponin I < 0.015 (0-0.045) ng/ml NT-Pro-B Natriuret Pep 36 (0-900) pg/ml Total Protein 7.1 (6.4-8.2) gm/dl Albumin 3.5 (3.4-5.0) gm/dl Globulin 3.6 (2.5-4.0) gm/dl Albumin/Globulin Ratio 1.0 (0.9-2) Lipase 92 (73-393) U/L TSH 2.110 (0.300-4.500) uIu/ml Imaging Data Radiologist's Impression: Radiology results as stated below per my review and the radiologist's interpretation: XR ankle RT min 3V routine CLINICAL HISTORY: fall pain, swelling, fall COMPARISON: None FINDINGS: Alignment of the right ankle is anatomic. There is no acute fracture. Moderate posterior and plantar calcaneal spurring is noted. There is right midfoot osteoarthritis. Right ankle soft tissue swelling is present. IMPRESSION: 1. No acute fracture or dislocation within the right ankle. 2. Right ankle soft tissue swelling. 3. Moderate posterior and plantar calcaneal spurring. Electronically signed by: Gagandeep Haile M.D. 01/31/2019 10:33 PM XR chest 1V portable CLINICAL HISTORY: Multiple falls. COMPARISON STUDY: Chest radiograph April 02, 2018. FINDINGS: No pneumothorax or pleural effusion is noted. No airspace opacities are present. Cardiomediastinal silhouette is unremarkable. Postoperative findings within the cervical spine are noted. IMPRESSION: No acute cardiopulmonary findings. Electronically signed by: Gagandeep Haile M.D. 01/31/2019 10:26 PM XR femur RT 2V routine CLINICAL HISTORY: fall pain, swelling, fall COMPARISON: Right knee radiographs June 25, 2017. FINDINGS: No acute fracture of the right femur is noted. Postoperative findings within the medial tibial plateau are noted. There is moderate to severe right knee osteoarthritis. A small right knee joint effusion is noted. IMPRESSION: 1. No acute fracture of the right femur. 2. Moderate to severe right knee osteoarthritis. Small right knee joint effusion. Electronically signed by: Gagandeep Haile M.D. 01/31/2019 10:29 PM XR hip RT 2-3V w pelvis CLINICAL HISTORY: fall pain, swelling, fall COMPARISON: Pelvis and right hip radiographs June 25, 2017. FINDINGS: Sacroiliac joints and symphysis pubis are intact. There is no acute fracture within the pelvis or hips. Irregularity of the left iliac bone is unchanged. This may be related to old injury. Mild osteoarthritis within the hips. IMPRESSION: No acute fracture within the pelvis or hips. Electronically signed by: Gagandeep Haile M.D. 01/31/2019 10:28 PM XR tibia fibula RT 2V CLINICAL HISTORY: fall pain, swelling, fall COMPARISON: Right knee radiographs June 25, 2017. FINDINGS: Postoperative findings within the proximal right tibia are noted. Right knee osteoarthritis is present. There is moderate posterior and plantar calcaneal spurring. There is no acute fracture of the right tibia or fibula. IMPRESSION: No acute fracture of the right tibia or fibula. Electronically signed by: Gagandeep Haile M.D. 01/31/2019 10:32 PM XR foot RT 2V CLINICAL HISTORY: fall pain, swelling, fall COMPARISON: None FINDINGS: Tarsometatarsal joints are intact. There is moderate posterior and plantar calcaneal spurring. No acute fracture within the right foot is noted. Right foot soft tissue swelling is present. There is mild to moderate osteoarthritis within multiple articulations of the right foot. IMPRESSION: No acute fracture or dislocation within the right foot. Electronically signed by: Gagandeep Haile M.D. 01/31/2019 10:34 PM XR knee RT 2V routine CLINICAL HISTORY: fall pain, swelling, fall COMPARISON: Right knee radiographs June 25, 2017. FINDINGS: Postoperative findings within the medial tibial plateau are noted. There is moderate to severe right knee osteoarthritis. A small right knee joint effusion is noted. Chronic deformity of the proximal right tibia is unchanged. IMPRESSION: 1. No acute fracture. 2. Moderate to severe right knee osteoarthritis. 3. Postoperative findings within the proximal right tibia. Electronically signed by: Gagandeep Haile M.D. 01/31/2019 10:31 PM ECG Data Attestation: I personally reviewed and interpreted this ECG as follows: Indication: chest pain Rate (beats per minute): 83 Rhythm: normal sinus Findings: + other (normal axis); no acute ischemic change Blood Pressure Blood Pressure Findings: Normal blood pressure Blood Pressure Disposition: did not require urgent referral MDM Narrative The patient is a pleasant 58 y/o woman with a pmhx of COPD and current smoking, arthritis, chronic back pain who presents to the emergency department with worsening SOB and CP over the past several days as well as persistent right leg/knee pain for past five days after having a mechaical fall and since then has been falling at least 3 times daily due to pain her leg per HPI. On arrival the patient is uncomfortable but in NAD, AFVSS. EKG unremarkable without evidence of acute ischemia. CXR negative. WBC, H/H, platelets wnl. Chemistry without acidosis. LFTs and electrolytes unremarkable. Troponin negative. BNP wnl. Plain films of right hip/pelvis, femur, knee, tib-fib, ankle, and foot negative for fx. Patient has right knee effusion, which is likely related to her OA and recent falls. Patient was treated initially with steroid and neb with some improvement in her breathing but did become hypoxic to 80s and so was placed on nasal cannula. Thus reasonable to admit for COPD exacerbation. Additionally ordered for continuous neb and Azithromycin for COPD flare. Additionally, will benefit from PT/OT eval/placement given patient's leg pain and impaired ambulation. Case was discussed with Dr. Gant, [facility] hospitalist, who will evaluate the patient for admission. Impression & Plan COPD exacerbation, Hypoxia Discharge Plan Visit Data Chief Complaint: Chest Pain Stated Complaint: CHEST PAIN, VOMITING, FELL ED Provider: Josh Zepeda Discharge Problem: COPD exacerbation, Hypoxia Patient Disposition: Being Evaluated by Hospitalist Forms Stand Alone Forms: Call Back Authorization, [facility] Prescriptions Prescriptions: No Action hydrocodone-acetaminophen 10-325 mg Tablet 1 tab PO Q6H PRN (Reason: Pain) RF: 0 omeprazole 40 mg Capsule,Delayed Release(Dr/Ec) 40 mg PO BID RF: 0 methocarbamol [Robaxin-750] 750 mg Tablet 750 mg PO BID PRN (Reason: Muscle Spasm) RF: 0 trazodone 100 mg Tablet 200 mg PO HS RF: 0 levothyroxine 50 mcg Tablet 50 mcg PO DAILY RF: 0 clonazepam 2 mg Tablet 2 mg PO TID RF: 0 gabapentin 300 mg Capsule 300 mg PO TID RF: 0 epinephrine [EpiPen] 0.3 mg/0.3 mL Auto-Injector 0.3 mg IM DIRECTED PRN (Reason: Allergic Reaction) RF: 0 diltiazem HCl 240 mg Capsule,Extended Release 24hr 240 mg PO QAM RF: 0 Referrals Referrals: Cosmo Olmedo M.D. [Primary Care Provider] - The scribe's documentation has been prepared under my direction and personally reviewed by me in its entirety. I confirm that the note above accurately reflects all work, treatment, procedures, and medical decision making performed by me.
[2019-01-31] MEDS ORDERED: OPTIRAY 320 125ml IV PRN (23:54)
--- NOTE | 2019-02-01 01:16 | History & Physical Report ---
Date of Service February 01, 2019 Assessment & Plan (1) Acute hypoxemic respiratory failure: hypoxemia, hypercapnic respiratory failure Secondary to COPD exacerbation/complicated bronchitis, no sepsis Ongoing tobacco abuse Recurrent falls/unwitnessed syncopal events Patient predisposed by home neuropsychotropic/opioid medications Rule out orthostasis, arrhythmia (hx PAF, hx tickborne disease carditis necessitating temporary pacemaker), structural cardiac pathology (hx mitral valve disease as per patient account), seizures mood/anxiety disorder, at baseline hypothyroidism, euthyroid as of today's TSH Fluid retention, weight gain over the last few months rule out right-sided heart failure from possible undiagnosed OHS Abdominal distention rule out ascites Leg swelling rule out DVT Hyperglycemia rule out DM Traumatic right knee effusion Diarrhea possibly secondary to viral enteritis rule out C. difficile Medical telemetry Supplemental O2 Follow-up ABG Doxycycline, nebs, prednisone course Pulmonary consultation RE respiratory failure, COPD exacerbation Hold home neuropsychotropic, narcotic medications for sedation confusion Orthostatic vitals, TTE, EEG for syncope work-up Lasix 1 dose for fluid retention May need additional doses if TTE shows evidence of right-sided heart failure Strict I/Os, daily weights for now Outpatient sleep study Abdominal ultrasound rule out ascites LE venous Dopplers ro DVT Orthopedics consult RE right knee effusion Basal insulin, ISS BG goal 1 40-180, check hemoglobin A1c Stool C. difficile Further management pending work-up results. PT OT eval. DVT prophylaxis. Lovenox subcu Full code History of Present Illness Chief Complaint: Chest pain, fall, shortness of breath, passing out Primary Care Provider: Cosmo Olmedo M.D. History obtained from patient and records. Medical history significant for COPD, PAF, mitral valve prolapse as per patient account, ongoing tobacco abuse, mood/anxiety disorder, chronic pain, hypothyroidism, history of tickborne disease. Recent confinement March 2018 for anaphylaxis secondary to wasp sting. Patient not feeling well the last week. Achy all over. 5 days ago patient had an unwitnessed syncopal event at home leading to right leg injury. Patient claims she was on before for a few hours. Since then patient would pass out 3 times/day because of achy right leg pain going up. No tongue biting/incontinence episodes. Yesterday patient noted junky cough symptoms associated with central chest pressure, achy headache, nausea, no emesis. Stools kind of loose. Patient denies abdominal pain. Patient also endorses symptoms of fluid retention, unquantified weight gain over the last few months. Patient does not feel rested in the morning despite sleeping at night. At the ER, patient received IV Decadron, azithromycin for COPD exacerbation. Patient noted lower abdominal queasiness after medication administration at the ER. 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 from an injury Allergies Allergy/AdvReac Type Severity Reaction Status Date / Time bee venom protein (honey bee) Allergy Severe ANAPHYLAXIS Verified 01/31/19 22:59 codeine Allergy Severe DIFFICULTY Verified 01/31/19 22:59 BREATHING ibuprofen Allergy Unknown swelling Verified 01/31/19 22:59 Home Medications Home Medications Medication Instructions Recorded Confirmed Type clonazepam 2 mg PO TID 01/31/19 01/31/19 History diltiazem HCl 240 mg PO QAM 01/31/19 01/31/19 History epinephrine [EpiPen] 0.3 mg IM DIRECTED PRN 01/31/19 01/31/19 History gabapentin 300 mg PO TID 01/31/19 01/31/19 History hydrocodone-acetaminophen 1 tab PO Q6H PRN 01/31/19 01/31/19 History levothyroxine 50 mcg PO DAILY 01/31/19 01/31/19 History methocarbamol [Robaxin-750] 750 mg PO BID PRN 01/31/19 01/31/19 History omeprazole 40 mg PO BID 01/31/19 01/31/19 History trazodone 200 mg PO HS 01/31/19 01/31/19 History Past Med/Surg History Medical History Lyme disease (Chronic) Heart attack (Chronic) COPD (chronic obstructive pulmonary disease) (Chronic) Family History Other No significant family history Social History Preferred Language: Bulgarian Communication Ability: Effective Beliefs That Will Affect Care: None Current Living Situation: Alone Other Information That Helps Us Care for You: No Feels Safe at Home: Yes Smoking Status: Current every day smoker Tobacco Type: cigarettes Hx Alcohol Use: Yes Review of Systems Review of Systems: As per HPI, all 10 systems reviewed, all other ROS negative Physical Exam Physical Exam: GENERAL: Comfortable, obese, no respiratory distress, currently having a breathing treatment SKIN: Normal color, warm HEENT: [place] palpebral conjunctivae, no ptosis, dry buccal mucosa NECK : Supple, short, no tenderness CHEST : Decreased breath sounds, expiratory wheezes , no tenderness HEART : RRR, systolic murmur ABDOMEN: Some distention, nontender EXTREMITIES : Minimal bilateral LE swelling, knee tendernessR, no other conspicuous deformities noted NEUROLOGIC : Coherent, no facial asymmetry, no other gross focality Results & Data Vital Signs (Past 12 Hours) Vital Signs Temp Pulse Pulse Resp BP BP Pulse Ox 02/01/19 00:30 78 22 99 02/01/19 00:00 55 L 58 L 15 98 01/31/19 23:30 74 20 95 01/31/19 23:01 76 22 136/80 91 01/31/19 23:00 78 23 91 01/31/19 22:55 93 01/31/19 22:53 87 L 01/31/19 22:52 90 01/31/19 22:32 73 83 23 137/60 137/60 98 01/31/19 21:54 78 16 94 01/31/19 21:04 36.4 C L 78 24 125/80 93 Laboratory Results Laboratory Results WBC 8.17 K/uL (4.8-10.8) 01/31/19 21:45 RBC 4.52 M/uL (4.2-5.4) 01/31/19 21:45 Hgb 14.5 g/dL (12.0-16.0) 01/31/19 21:45 Hct 42.3 % (37-47) 01/31/19 21:45 MCV 93.6 fL (80-100) 01/31/19 21:45 MCH 32.1 pg (25-34) 01/31/19 21:45 MCHC 34.3 g/dL (32-36) 01/31/19 21:45 RDW Std Deviation 44.9 fL (36.4-46.3) 01/31/19 21:45 RDW Coeff of Rajiv 13.2 % (11.5-14.5) 01/31/19 21:45 Plt Count 179 K/uL (130-400) 01/31/19 21:45 MPV 8.4 fL (7.4-10.4) 01/31/19 21:45 Immature Gran % (Auto) 0.1 % 01/31/19 21:45 Neut % (Auto) 60.2 % 01/31/19 21:45 Lymph % (Auto) 31.5 % 01/31/19 21:45 [place] % (Auto) 6.7 % 01/31/19 21:45 Eos % (Auto) 1.3 % 01/31/19 21:45 Baso % (Auto) 0.2 % 01/31/19 21:45 Immature Gran # (Auto) 0.01 K/uL (0.00-0.02) 01/31/19 21:45 Neut # (Auto) 4.91 K/uL (1.4-6.5) 01/31/19 21:45 Lymph # (Auto) 2.57 K/uL (1.2-3.4) 01/31/19 21:45 [place] # (Auto) 0.55 K/uL (0.11-0.59) 01/31/19 21:45 Eos # (Auto) 0.11 K/uL (0-0.5) 01/31/19 21:45 Baso # (Auto) 0.02 K/uL (0-0.2) 01/31/19 21:45 PT 10.1 Seconds (9.0-12.0) 01/31/19 21:45 INR 1.0 (0.9-1.1) 01/31/19 21:45 Sodium 145 mmol/L (136-145) 01/31/19 21:45 Potassium 3.5 mmol/L (3.5-5.1) 01/31/19 21:45 Chloride 108 mmol/L (98-107) H 01/31/19 21:45 Carbon Dioxide 31 mmol/L (21-32) 01/31/19 21:45 6.0 (3-11) 01/31/19 21:45 BUN 16 mg/dl (7-18) 01/31/19 21:45 0.97 mg/dl (0.6-1.2) 01/31/19 21:45 Est Cr Clr Drug Dosing 92.0 ml/min 01/31/19 21:45 Est GFR ( Amer) 73.6 01/31/19 21:45 Est GFR (Non-Af Amer) 63.5 01/31/19 21:45 16.6 (10-20) 01/31/19 21:45 Glucose 145 mg/dl (70-99) H 01/31/19 21:45 Calcium 9.5 mg/dl (8.5-10.1) 01/31/19 21:45 Phosphorus 2.6 mg/dl (2.5-4.9) 01/31/19 21:45 Magnesium 2.1 mg/dl (1.8-2.4) 01/31/19 21:45 0.3 mg/dl (0.2-1) 01/31/19 21:45 < 0.1 mg/dl (0-0.2) 01/31/19 21:45 AST 10 U/L (15-37) L 01/31/19 21:45 ALT 16 U/L (12-78) 01/31/19 21:45 118 U/L (45-117) H 01/31/19 21:45 < 0.015 ng/ml (0-0.045) 01/31/19 21:45 NT-Pro-B Natriuret Pep 36 pg/ml (0-900) 01/31/19 21:45 7.1 gm/dl (6.4-8.2) 01/31/19 21:45 3.5 gm/dl (3.4-5.0) 01/31/19 21:45 3.6 gm/dl (2.5-4.0) 01/31/19 21:45 1.0 (0.9-2) 01/31/19 21:45 92 U/L (73-393) 01/31/19 21:45 TSH 2.110 uIu/ml (0.300-4.500) 01/31/19 21:[address] head initial read: No acute pathology CT angios initial read no pulmonary embolism EKG as per my interpretation : Rate 80, NSR, normal axis, no ischemia Right knee x-ray: FINDINGS: Postoperative findings within the medial tibial plateau are noted. There is moderate to severe right knee osteoarthritis. A small right knee joint effusion is noted. Chronic deformity of the proximal right tibia is unchanged. IMPRESSION: 1. No acute fracture. 2. Moderate to severe right knee osteoarthritis. 3. Postoperative findings within the proximal right tibia.
[2019-02-01] MEDS ORDERED: FUROSEMIDE 40 MG in SYRINGE 0 ML IV STA (01:23)
[2019-02-01] MEDS ORDERED: PROMETHAZINE HCL 12.5 MG in SODIUM CHLORIDE 0.9% 50 ML IV PRN (01:36)
[2019-02-01] MEDS ORDERED: FUROSEMIDE 40 MG/4 ML VIAL IV ONE (02:22)
[2019-02-01 02:40] LABS: Influenza A virus by PCR Neg for Influ A (Neg); Influenza B virus by PCR Neg for Influ B (Neg)
[2019-02-01] MEDS ORDERED: METHOCARBAMOL 750 MG TABLET PO PRN (03:08)
[2019-02-01] MEDS ORDERED: GLUCAGON FOR INJ 1 MG VIAL SQ PRN (03:08)
[2019-02-01] MEDS ORDERED: INSULIN GLARGINE SOLOSTAR 100 UNITS/ML 3 ML PEN SQ STA (03:08)
[2019-02-01] MEDS ORDERED: NITROGLYCERIN SL 0.4 MG/TAB TAB SL PRN (03:08)
[2019-02-01] MEDS ORDERED: CARBOHYDRATES FOR HYPOGLYCEMIA PO PRN (03:08)
[2019-02-01] MEDS ORDERED: HYDROmorphone INJ 0.5 MG/0.5 ML SYR IV PRN (03:08)
[2019-02-01] MEDS ORDERED: GLUCOSE 10 TABS/TUBE PO PRN (03:08)
[2019-02-01] MEDS ORDERED: ACETAMINOPHEN 325 MG TAB PO PRN (03:08)
[2019-02-01] MEDS ORDERED: GLUCOSE 40% GEL 15 GM TUBE PO PRN (03:08)
[2019-02-01] MEDS ORDERED: DEXTROSE 50% 50 ML SYRINGE IV PRN (03:08)
[2019-02-01] MEDS ORDERED: POTASSIUM CHLORIDE 20 MEQ TABCR PO STA (03:08)
[2019-02-01] MEDS: HYDROCODONE/ACETAMINOPHEN 10/325 TAB PO PRN ×2 (03:19→10:01)
[2019-02-01] MEDS: NICOTINE 14 MG/24 HR PATCH TD SCH ×2 (03:42→08:05)
[2019-02-01] MEDS: INSULIN ASPART 100 UNITS/ML 3 ML PEN SC SCH ×5 (03:45→20:53)
[2019-02-01 04:49] LABS: Appearance Urine Clear (Clear); Bacteria Urine Automated Negative (Negative); Bilirubin Urine Negative (Negative); Blood Urine Negative (Negative); Color Urine Yellow; Glucose Urine UA Negative (Negative); Ketones Urine Negative (Negative); Leukocyte Esterase Urine Trace (Negative); Nitrite Urine Negative (Negative); Protein Urine Negative (Negative); Specific Gravity Urine 1.016 (1.000-1.030); Urobilinogen Urine Negative (Negative)
[2019-02-01] MEDS: LEVOTHYROXINE SODIUM 50 MCG TABLET PO SCH (05:22)
[2019-02-01 06:34] LABS: Basophils # (auto) 0.01 K/uL (0-0.2); Basophils % (auto) 0.1 %; Hematocrit (blood only) 41.3 % (37-47); Hemoglobin 14.2 g/dL (12.0-16.0); Immature Granulocytes # (auto) 0.03 K/uL (0.00-0.02); Immature Granulocytes % (auto) 0.4 %; Lymphocytes # (auto) 0.71 K/uL (1.2-3.4); Lymphocytes % (auto) 8.6 %; Mean Corpuscular Hgb Conc 34.4 g/dL (32-36); Mean Platelet Volume 8.5 fL (7.4-10.4); Monocytes # (auto) 0.11 K/uL (0.11-0.59); Monocytes % (auto) 1.3 %; Neutrophils # (auto) 7.35 K/uL (1.4-6.5); Neutrophils % (auto) 89.6 %; Platelet Count 179 K/uL (130-400); RDW Coefficient of Variation 13.1 % (11.5-14.5); RDW Standard Deviation 43.7 fL (36.4-46.3); Red Blood Count 4.49 M/uL (4.2-5.4); White Blood Count 8.21 K/uL (4.8-10.8)
[2019-02-01 06:35] LABS: Allen Test Pos (Pos); HCO3 ABG 30 mmol/L (19-24); Oxygen Saturation ABG 95.2 % (90-95); PCO2 ABG 50 mmHg (35-46); PO2 ABG 77 mm/Hg (80-95); pH ABG 7.39 (7.35-7.45)
--- NOTE | 2019-02-01 06:37 | CT Scan Report ---
CT head/brain wo con CT DOSE: 614.27 mGy.cm HISTORY: Headache. Mental status change. mercado TECHNIQUE: Multiaxial CT images of the head were performed without the use of intravenous contrast. A dose lowering technique was utilized adhering to the principles of ALARA. Comparison: None. Findings: The paranasal sinuses and mastoid air cells are clear. The calvarium and skull base are int act. The ventricles and sulci are within normal limits. There is no mass, hematoma, midline shift, or acute infarct. Impression: No acute intracranial abnormality. The above report was generated using voice recognition software. It may contain grammatical, syntax or spelling errors. Electronically signed by: Eliu Fournier M.D. 02/01/2019 6:36 AM
--- NOTE | 2019-02-01 06:42 | Ultrasound Report ---
US venous doppler LE BI HISTORY: Pain. Edema. leg swelling COMPARISON STUDY: None. FINDINGS: There is normal compressibility, flow, and augmentation within the bilateral lower extremit y deep venous systems. IMPRESSION: No DVT within the right or left lower extremity. The above report was generated using voice recognition software. It may contain grammatical, syntax or spelling errors. Electronically signed by: Eliu Fournier M.D. 02/01/2019 6:41 AM
[2019-02-01 06:58] LABS: Amphetamines+Metham, Urine Neg (Neg); Barbiturates, Urine Pos (Neg); Benzodiazepine, Urine Neg (Neg); Cocaine, Urine Neg (Neg); MDMA (Ecstacy), Urine Neg (Neg); Methadone, Urine Neg (Neg); Opiate, Urine Pos (Neg); Phencyclidine, Urine Neg (Neg)
--- NOTE | 2019-02-01 07:02 | Ultrasound Report ---
ULTRASOUND ASCITES CHECK CLINICAL HISTORY: Abdominal distention. COMPARISON STUDY: Abdominal radiographs dated 03/25/2011. FINDINGS: Real-time grayscale sonography of all 4 quadrants of the abdomen is performed to assess for abdominal ascites. No abdominal ascites is identified. IMPRESSION: There is no sonographic evidence of abdominal ascites. Electronically signed by: Porfirio Cortez M.D. 02/01/2019 7:00 AM
[2019-02-01 07:07] LABS: BUN Creatinine Ratio 18.1 (10-20); Blood Urea Nitrogen 17 mg/dl (7-18); Calcium 9.3 mg/dl (8.5-10.1); Carbon Dioxide 29 mmol/L (21-32); Chloride 103 mmol/L (98-107); Creatinine Clr Calc Pharmacy 93.6 ml/min; Est GFR (African American) 75.5; Est GFR (Non-African American) 65.1; Glucose 131 mg/dl (70-99); Potassium 4.2 mmol/L (3.5-5.1); Sodium 140 mmol/L (136-145)
[2019-02-01 07:10] LABS: Troponin I < 0.015 ng/ml (0-0.045)
[2019-02-01] MEDS: LEVALBUTEROL 1.25MG/0.5ML NEB INH SCH ×3 (07:32→20:06)
[2019-02-01 07:33] LABS: Estimated Average Glucose 120 mg/dl; Hemoglobin A1C 5.8 % (4.5-5.6)
[2019-02-01] MEDS: IPRATROPIUM BROMIDE NEB SOLN 0.02% 2.5 ML VIAL INH SCH ×3 (07:33→20:06)
[2019-02-01] MEDS ORDERED: PERFLUTREN LIPID MICROSPHERE (DEFINITY) IV ONE (07:34)
--- NOTE | 2019-02-01 07:43 | CT Scan Report ---
CT ANGIOGRAM OF THE CHEST CLINICAL HISTORY: Dyspnea. Atypical chest pain. Tachycardia. COMPARISON STUDY: Chest x-ray dated 01/31/2019. TECHNIQUE: Following the IV administration of 118 cc of Optiray 320, CT angiogram of the chest was pe rformed from the upper abdomen to the thoracic inlet utilizing the pulmonary embolus protocol. Images are reviewed in the axial, sagittal, and coronal planes. 3-D MIPS images are created and assessed. I V contrast was administered without complication. A dose lowering technique was utilized adhering to the principles of ALARA. CT DOSE: 768.86 mGy.cm FINDINGS: Thyroid: Imaged portions of the thyroid gland are normal in size and attenuation. Thoracic aorta: The thoracic aorta is normal in caliber and demonstrates bovine variant arch anatomy. No dissection is seen. Pulmonary vasculature: The pulmonary trunk is normal in caliber. There are no filling defects identif ied in main, lobar, or segmental pulmonary branches to suggest pulmonary embolus. Heart: The heart is enlarged and without pericardial effusion. There are scattered coronary artery ca lcifications. Lungs and pleural spaces: There is no airspace consolidation or pleural effusion. Dependent atelectas is is present at both lung bases. The trachea and central airways are clear. Mild diffuse peribronchi al thickening is noted. Mediastinum: There is no mediastinal lymphadenopathy. [place]: Clear. Axillae: There is no axillary lymphadenopathy. Upper abdomen: There is a small hiatal hernia. There are calcified hepatic granulomas. Bilateral adre nal adenomas measure up to 12 mm. A 1.7 cm cyst arises from the upper pole of the left kidney. Skeletal structures: No lytic or blastic bony lesions are seen. Degenerative change and DISH are note d in the thoracic spine. Fusion hardware is noted in the lower cervical spine. IMPRESSION: 1. There is no evidence of pulmonary embolus in the main, lobar, or segmental pulmonary arteries. 2. There is no airspace consolidation or pleural effusion. 3. Cardiomegaly. 4. Mild diffuse peribronchial thickening suggests reactive air disease. Clinical correlation will be required. Electronically signed by: Porfirio Cortez M.D. 02/01/2019 7:42 AM
[2019-02-01] MEDS ORDERED: XOPENEX/ATROVENT 1.25mg/0.5MG NEB COMBO NEB SCH (08:00)
[2019-02-01] MEDS: predniSONE 20 MG TAB PO SCH (08:04)
[2019-02-01] MEDS: GABAPENTIN 300 MG CAP PO SCH ×3 (08:05→20:54)
[2019-02-01] MEDS: DOXYCYCLINE HYCLATE 100 MG CAP PO SCH ×2 (08:05→20:54)
[2019-02-01] MEDS: dilTIAZem HCL 240 MG CAPCR PO SCH (08:05)
[2019-02-01] MEDS: PANTOprazole 40 MG TAB PO SCH ×2 (08:05→20:54)
[2019-02-01] MEDS: ENOXAPARIN INJ 40 MG/0.4 ML SYR SQ SCH (08:06)
[2019-02-01] MEDS: clonazePAM 1 MG TAB PO SCH ×3 (10:01→20:58)
--- NOTE | 2019-02-01 15:02 | Pulmonary Consultation ---
Date of Consultation February 01, 2019 Assessment & Plan (1) Acute hypoxemic respiratory failure: 58 yo female who is admitted for investiation of syncope and Acute on chronic resp failure likely related to acute bronchitis. Patient is likely to have COPD versus OHS given body habitus and smoking history. She has not seen pulm physicians and need outpatient FU for PFT and sleep study echocardiogram is not suggetive of RV dysfunction. Her description of seasonal acute respiratory infecitons is suggestive of asthma with seasonal allergies (cough variant asthma) Agree with doxycycline and prednisone agree with levalbuterol/ipratropium would add a controller medication LABA/ICS such as symbicort WOuld also add sigulair (asthma) titrate O2 down to SpO2 of 90-92% No DVT on US and no PE on CTA. Lovenox SC for DVT prophylaxis Thank you for allowing me to participate in the medical management of this patient Present on Admission?: Yes (2) COPD exacerbation: as above Present on Admission?: Yes History of Present Illness Reason for Consultation: COPD and acute on chronic respiratory failure Requesting Physician: Calixto Gant MD Attending Physician: Alex Fish MD History of Present Illness This is a pleasant 58 yo female patient who was admitted to the hospital because of frequent falls that she describes are secondary to pain in her leg s/p RLE injury several years ago. The patient is known to have had a tickborn infection with HEart Attack in the past and she describes a tachyarrhythmia which she investigated on outside [facility]. She is known to have hypothyroidism and reports smoking since age 10. She quit for 11 years but then her and she picked up smoking again. She smokes 1/2 -3/4 ppd. The patient also describes a history of recurrent lung infections in late spring since childhood and describes a pattern of cough in the spring but she does not recall having PFTs or seeing a pulmonary physician. She reports joint pain, upset stomach of about 2 weks duration which progressed to cough productive of whitish and occiasonal brownish sputum. On admission she was found to have CO2 of 50 without acidosis. Patient denies having excessive pain pills and weakness. She and her yard caller at the bedside they were both active until recently No chest pain no fever chills reported. No gross wheezing + history of using nebulizers at home Allergies Allergy/AdvReac Type Severity Reaction Status Date / Time bee venom protein (honey bee) Allergy Severe ANAPHYLAXIS Verified 01/31/19 22:59 codeine Allergy Severe DIFFICULTY Verified 01/31/19 22:59 BREATHING ibuprofen Allergy Unknown swelling Verified 01/31/19 22:59 Home Medications Home Medications Medication Instructions Recorded Confirmed Type clonazepam 2 mg PO TID 01/31/19 01/31/19 History diltiazem HCl 240 mg PO QAM 01/31/19 01/31/19 History epinephrine [EpiPen] 0.3 mg IM DIRECTED PRN 01/31/19 01/31/19 History gabapentin 300 mg PO TID 01/31/19 01/31/19 History hydrocodone-acetaminophen 1 tab PO Q6H PRN 01/31/19 01/31/19 History levothyroxine 50 mcg PO DAILY 01/31/19 01/31/19 History methocarbamol [Robaxin-750] 750 mg PO BID PRN 01/31/19 01/31/19 History omeprazole 40 mg PO BID 01/31/19 01/31/19 History trazodone 200 mg PO HS 01/31/19 01/31/19 History Patient History Medical History Lyme disease (Chronic) Heart attack (Chronic) COPD (chronic obstructive pulmonary disease) (Chronic) Family History Other No significant family history Social History Preferred Language: Eritrean Communication Ability: Effective Beliefs That Will Affect Care: None Current Living Situation: Alone Other Information That Helps Us Care for You: No Feels Safe at Home: Yes Smoking Status: Current every day smoker Tobacco Type: cigarettes Hx Alcohol Use: Yes Review of Systems Constitutional: as per Subjective / HPI Eyes: No visual problems reported Ear, Nose, Mouth, Throat: multiple surgeries and impants on cervical spine Respiratory: as per Subjective / HPI Cardiovascular: Additional Comments: H/o tcbron infection and subsequent OR and carditis per patient. She complains of palpitations occaisonally. REcent syncope Gastrointestinal: upset stomach and constipation Genitourinary: no complaints Neurologic: as per Subjective / HPI Physical Exam Constitutional: WD/WN, vitals as above Eyes: PERRL, conjunctivae normal, anicteric sclerae ENMT: external ear and nose normal, oropharynx normal Neck: trachea midline, no thyromegaly Respiratory: bilateral clear air entry with end expiratory faine wheezes, no prolonged expiratory time Cardiovascular: RRR, no murmur, no edema Gastrointestinal (Abdomen): normal bowel sounds, soft, nontender, no hepatosplenomegaly central obesity Musculoskeletal: no cyanosis or clubbing, extremities motor strength 5/5 She has scar on RLE and skin changes suggestive of recent diuresis no joint swelling or erythema Results & Data Vital Signs (Past 12 Hours) Vital Signs Temp Pulse Pulse Resp BP Pulse Ox 02/01/19 14:04 65 16 94 02/01/19 07:08 36.5 C 84 16 124/67 99 02/01/19 05:01 80 137/73 02/01/19 03:00 78
--- NOTE | 2019-02-01 15:22 | Hospitalist Progress Note ---
Date of Service February 01, 2019 Assessment & Plan (1) Acute hypoxemic respiratory failure: Acute hypoxemic respiratory failure Likely related to acute bronchitis Could have underlying COPD Vs Obesity hypoventilation syndrome Ongoing tobacco use disorder CTA:No PE. No airspace consolidation or pleural effusion. Cardiomegaly. Mild diffuse peribronchial thickening suggests reactive air disease. Clinical correlation will be required. Supplemental oxygen as needed Titrate oxygen to keep saturations 90-92% Counseled to quit smoking Continue doxycycline, prednisone Continue bronchodilators, Singulair, Symbicort Appreciate pulmonary input Advised to get pulmonary function test, sleep study as outpatient Recurrent falls/unwitnessed syncopal events In setting of use of home neuropsychotropic/opioid medications Patient denies any recent change in her medications/dosing Monitor on telemetry to rule out arrhythmias Orthostatics: Negative ECHO: Normal LV chamber size, mild concentric LVH, normal LV systolic function, EF 60 to 65%, no segmental left ventricular wall motion abnormalities, grade 1 diastolic dysfunction, no significant valvular pathology. EEG:normal drowsy and sleep EEG. No epileptiform activity is recorded. PT/OT Mood/anxiety disorder Stable Continue home medications Hypothyroidism TSH normal Continue levothyroxine Chronic fluid retention ECHO suggestive of grade 1 diastolic dysfunction with normal EF ABD USD:No evidence of abdominal ascites. May need diuretics if continues to worsen Low salt diet, fluid restriction Leg swelling Venous Doppler:No DVT within the right or left lower extremity. Hyperglycemia Hb A1C: 5.8 Diet changes Traumatic right knee effusion X ray: No acute fracture of the right tibia or fibula. Knee X ray:No acute fracture. Moderate to severe right knee osteoarthritis. Postoperative findings within the proximal right tibia. Hip/Pelvic X ray:No acute fracture within the pelvis or hips. Foot X ray:No acute fracture or dislocation within the right foot. Femur X ray:No acute fracture of the right femur. Moderate to severe right knee osteoarthritis. Small right knee joint effusion. Ankle X ray:No acute fracture or dislocation within the right ankle. Right ankle soft tissue swelling. Moderate posterior and plantar calcaneal spurring. Orthopedics Consulted Diarrhea: No diarrhea since hospitalization R/O C.diff if reoccurs DVT Px: Lovenox SQ Code Status: Full code Disposition: To be determined Subjective Patient is seen and examined bedside Complains of knee pain, foot pain Reports cough with expectoration Denies any chest pain, shortness of breath, dizziness, nausea Appreciate pulmonary input Never had pulmonary function tests previously Offers no other complaints Review of Systems Review of Systems: All systems reviewed & are unremarkable except as noted in HPI & below Physical Exam Physical Exam: Physical Exam: Vitals signs as noted above General Appearance:Obese, no apparent distress Head: normocephalic, Atraumatic Eyes: normal inspection, EOMI Neck: supple, Trachea midline Respiratory/Chest: Decreased breath sounds, faint wheezes Cardiovascular: S1, S2, No murmur Abdomen/GI:Soft, Non tender, Bowel sounds present Extremities/Musculoskelatal:normal inspection, 1+ B/L edema Neurologic/Psych:AAOX3, grossly no focal neurological deficits Skin: normal color, warm Results & Data Vital Signs (Past 12 Hours) Vital Signs Temp Pulse Resp BP Pulse Ox 02/01/19 14:04 65 16 94 02/01/19 07:08 36.5 C 84 16 124/67 99 02/01/19 05:01 80 137/73 Laboratory Results Short CBC 01/31/19 02/01/19 Range/Units 21:45 06:20 WBC 8.17 8.21 (4.8-10.8) K/uL Hgb 14.5 14.2 (12.0-16.0) g/dL Hct 42.3 41.3 (37-47) % Plt Count 179 179 (130-400) K/uL BMP 01/31/19 02/01/19 21:45 06:20 Sodium 145 140 Potassium 3.5 4.2 D Chloride 108 H 103 Carbon Dioxide 31 29 BUN 16 17 Creatinine 0.97 0.95 Glucose 145 H 131 H Calcium 9.5 9.3 Cardiac Enzymes 01/31/19 02/01/19 02/01/19 Range/Units 21:45 06:20 06:20 Total Creatine Kinase 41 (26-192) U/L Troponin I < 0.015 < 0.015 (0-0.045) ng/ml Liver Function 01/31/19 Range/Units 21:45 Total Bilirubin 0.3 (0.2-1) mg/dl Direct Bilirubin < 0.1 (0-0.2) mg/dl AST 10 L (15-37) U/L ALT 16 (12-78) U/L Alkaline Phosphatase 118 H (45-117) U/L Albumin 3.5 (3.4-5.0) gm/dl Urine 02/01/19 Range/Units 04:20 Urine Color Yellow Urine Appearance Clear (Clear) Urine pH 5.0 (4.5-7.5) Ur Specific [place] 1.016 (1.000-1.030) Urine Protein Negative (Negative) Urine Glucose (UA) Negative (Negative)
--- NOTE | 2019-02-01 15:36 | Procedure Note ---
EEG Procedure Note Date of Service February 01, 2019 Start / End Times Start Time: 9:33 End Time: 9:[address] Calixto Gant History A 58 year old woman with recurrent syncope. EEG performed for evaluation of epileptiform activity. Home Medication List Home Medications Medication Instructions Recorded Confirmed Type clonazepam 2 mg PO TID 01/31/19 01/31/19 History diltiazem HCl 240 mg PO QAM 01/31/19 01/31/19 History epinephrine [EpiPen] 0.3 mg IM DIRECTED PRN 01/31/19 01/31/19 History gabapentin 300 mg PO TID 01/31/19 01/31/19 History hydrocodone-acetaminophen 1 tab PO Q6H PRN 01/31/19 01/31/19 History levothyroxine 50 mcg PO DAILY 01/31/19 01/31/19 History methocarbamol [Robaxin-750] 750 mg PO BID PRN 01/31/19 01/31/19 History omeprazole 40 mg PO BID 01/31/19 01/31/19 History trazodone 200 mg PO HS 01/31/19 01/31/19 History Inpatient Medication List Hydrocodone Bitart/Acetaminophen ([place] 10/325) 1 tab PO Q6H PRN PRN Reason: Pain Stop: 02/15/19 03:07 Last Admin: 02/01/19 10:01 Dose: 1 tab Documented by: [id number] Admin: 02/01/19 03:19 Dose: 1 tab Documented by: [id number] Clonazepam (Klonopin) 2 mg PO TID REPLACED BY [facility] Stop: 03/03/19 08:59 Last Admin: 02/01/19 13:37 Dose: 2 mg Documented by: [id number] Admin: 02/01/19 10:01 Dose: 2 mg Documented by: [id number] Diltiazem HCl (Cardizem Cd) 240 mg PO QAM REPLACED BY [facility] Stop: 03/03/19 08:59 Last Admin: 02/01/19 08:05 Dose: 240 mg Documented by: [id number] Doxycycline Hyclate (Vibramycin) 100 mg PO BID REPLACED BY [facility] Stop: 02/08/19 08:59 Last Admin: 02/01/19 08:05 Dose: 100 mg Documented by: [id number] Enoxaparin Sodium (Lovenox) 40 mg SQ QAM REPLACED BY [facility] Stop: 03/03/19 08:59 Last Admin: 02/01/19 08:06 Dose: 40 mg Documented by: [id number] Gabapentin (Neurontin) 300 mg PO TID REPLACED BY [facility] Stop: 03/03/19 08:59 Last Admin: 02/01/19 13:37 Dose: 300 mg Documented by: [id number] Admin: 02/01/19 08:05 Dose: 300 mg Documented by: [id number] Insulin Aspart (Novolog Flexpen) 0 units SC ACHS REPLACED BY [facility] Stop: 03/03/19 03:07 Last Admin: 02/01/19 12:28 Dose: 3 units Documented by: [id number] Cosigned by: [id number] Admin: 02/01/19 08:08 Dose: 2 units Documented by: [id number] Cosigned by: [id number] Admin: 02/01/19 03:45 Dose: 2 units Documented by: [id number] Cosigned by: [id number] Ipratropium [place] (Atrovent 0.02% 0.5mg/2.5ml) 0.5 mg INH Q6R REPLACED BY [facility] Stop: 03/03/19 07:59 Last Admin: 02/01/19 14:02 Dose: 0.5 mg Documented by: [id number] Admin: 02/01/19 07:33 Dose: Not Given Documented by: [id number] Levalbuterol HCl (Xopenex 1.25mg/0.5ml Neb) 1.25 mg INH Q6R REPLACED BY [facility] Stop: 03/03/19 07:59 Last Admin: 02/01/19 14:02 Dose: 1.25 mg Documented by: [id number] Admin: 02/01/19 07:32 Dose: Not Given Documented by: [id number] Levothyroxine Sodium (Synthroid) 50 mcg PO DAILYBB REPLACED BY [facility] Stop: 03/03/19 06:29 Last Admin: 02/01/19 05:22 Dose: 50 mcg Documented by: [id number] Nicotine (Nicoderm Cq) 14 mg TD QAM REPLACED BY [facility] Stop: 03/03/19 03:07 Last Admin: 02/01/19 08:05 Dose: 14 mg Documented by: [id number] Admin: 02/01/19 03:42 Dose: 14 mg Documented by: [id number] Pantoprazole Sodium (Protonix) 40 mg PO BID REPLACED BY [facility] Stop: 03/03/19 08:59 Last Admin: 02/01/19 08:05 Dose: 40 mg Documented by: [id number] Prednisone (Prednisone) 20 mg PO DAILY RENETTA Stop: 02/05/19 08:59 Last Admin: 02/01/19 08:04 Dose: 20 mg Documented by: [id number] Discontinued Medications Albuterol (Duoneb) 3 ml NEB NOW STA Stop: 01/31/19 21:42 Last Admin: 01/31/19 21:52 Dose: 3 ml Documented by: [id number] Albuterol (Duoneb) 12 ml NEB ONE ONE Stop: 01/31/19 23:11 Last Admin: 01/31/19 23:57 Dose: 12 ml Documented by: [id number] Azithromycin (Zithromax) 500 mg PO NOW ONE Stop: 01/31/19 23:12 Last Admin: 01/31/19 23:31 Dose: 500 mg Documented by: [id number] Dexamethasone Sodium Phosphate (Decadron Pf) Confirm Administered Dose 10 mg .ROUTE .STK-MED ONE Stop: 01/31/19 22:04 Last Admin: 01/31/19 22:26 Dose: 10 mg Documented by: [id number] Furosemide (Lasix) Confirm Administered Dose 40 mg IV .STK-MED ONE Stop: 02/01/19 02:23 Last Admin: 02/01/19 02:26 Dose: Not Given Documented by: [id number] Acetaminophen (Ofirmev) 1,000 mg in 100 mls @ 400 mls/hr IV NOW STA Stop: 01/31/19 21:55 Last Infusion: 01/31/19 23:04 Dose: 0 mls/hr Documented by: [id number] Admin: 01/31/19 22:26 Dose: 400 mls/hr Documented by: [id number] Dexamethasone Sodium Phosphate (10 mg/ Syringe) 2.5 mls @ 1 mls/min IV NOW STA Stop: 01/31/19 21:43 Last Admin: 01/31/19 22:27 Dose: Not Given Documented by: [id number] Furosemide 40 mg/ Syringe 4 mls @ 4 mls/min IV NOW STA Stop: 02/01/19 01:24 Last Admin: 02/01/19 02:25 Dose: 4 mls/min Documented by: [id number] Insulin Glargine (Lantus Solostar Pen) 5 units SQ NOW STA Stop: 02/01/19 03:09 Last Admin: 02/01/19 03:42 Dose: 5 units Documented by: [id number] Cosigned by: [id number] Ioversol (Optiray 320 125ml) 125 ml IV ONCE PRN PRN Reason: Interaction Checking Stop: 02/04/19 23:53 Last Admin: 01/31/19 23:54 Dose: 118 ml Documented by: [id number] Oxycodone HCl (Roxicodone Immediate Rel) 5 mg PO NOW STA Stop: 01/31/19 23:11 Last Admin: 01/31/19 23:31 Dose: 5 mg Documented by: [id number] Perflutren Lipid Microsphere (Definity) 2 ml IV ONCE ONE Stop: 02/01/19 07:35 Last Admin: 02/01/19 07:35 Dose: 2 ml Documented by: [id number] Potassium Chloride (Klor-Con M20) 40 meq PO NOW STA Stop: 02/01/19 03:09 Last Admin: 02/01/19 03:41 Dose: 40 meq Documented by: [id number] Description This is a 21 electrode EEG with a single channel dedicated to limited EKG. The electrodes were placed in accordance with the International 10-20 system. REPORT: At the onset of the EEG the patient is asleep. The posterior dominant is not well seen during this recording. The background predominantly consist of moderate amplitude 5-7 Hz theta activity with intermixed faster frequencies. Stage II sleep is characterized by sleep spindles. Drowsiness is characterized by reduced muscle artifact and eye blink with predominantly theta range frequencies. Photic stimulation does not elicit any abnormalities. IMPRESSION: This is a normal drowsy and sleep EEG. No epileptiform activity is recorded. Consider repeat EEG as outpatient when patient is more alert to better characterize waking background if clinically indicated.
[2019-02-01] MEDS ORDERED: MoRPHine SULFATE 2 MG/ML CARP ONE (19:02)
[2019-02-01] MEDS ORDERED: ONDANSETRON INJ 2 MG/ML 2 ML VIAL ONE (19:05)
--- NOTE | 2019-02-01 19:19 | Hospitalist Progress Note ---
Date of Service February 01, 2019 Subjective Attended code purple The patient complained to have severe chest pain with shortness of breath She received sublingual nitro x2 in total and and also intravenous morphine for the pain She remained hemodynamically stable and her saturation remained normal On examination She has very anxious Minimal distress at rest Hemodynamically stable Chest- Decreased breath sounds without any crackle Heart-S1-S2 regular Abdomen-distended, soft and nontender Extremities-trace edema bilaterally [employer]-alert and awake and oriented x3 Labs troponin and PRP are pending Stat EKG-sinus rhythm without any acute ST-T wave changes The patient was transferred to telemetry unit for continued management Dr Yudelka Claire Results & Data Vital Signs (Past 12 Hours) Vital Signs Temp Pulse Pulse Resp BP Pulse Ox 02/01/19 16:06 76 02/01/19 15:41 36.5 C 63 20 141/61 H 93 02/01/19 14:04 65 16 94
[2019-02-01 20:11] LABS: BUN Creatinine Ratio 21.1 (10-20); Blood Urea Nitrogen 20 mg/dl (7-18); Calcium 9.2 mg/dl (8.5-10.1); Carbon Dioxide 32 mmol/L (21-32); Chloride 103 mmol/L (98-107); Creatinine Clr Calc Pharmacy 95.6 ml/min; Est GFR (African American) 77.4; Est GFR (Non-African American) 66.8; Glucose 161 mg/dl (70-99); Potassium 4.3 mmol/L (3.5-5.1); Sodium 138 mmol/L (136-145); Troponin I < 0.015 ng/ml (0-0.045)
[2019-02-01] MEDS: TRAZODONE HCL 100 MG TAB PO SCH (20:53)
[2019-02-01] MEDS: MONTELUKAST SOD 5 MG CHEWABLE TAB PO SCH (20:54)
[2019-02-01] MEDS: BUDESONIDE/FORMOTEROL FUMARATE 80/4.5 60 PUFFS/INHALER INH SCH (20:54)
--- NOTE | 2019-02-01 22:24 | Consultation Report ---
DATE OF CONSULTATION: 02/01/2019 HISTORY OF PRESENT ILLNESS: The patient is a 58-year-old white female with longstanding history of knee pain and problems dating back to age 21. She has had multiple surgeries by Dr. Teja Rangel in [place], which included a Maquet Mary Lou type procedure with anterior medialization tibial tubercle. She has gone on to develop progressive degenerative joint disease and has fairly high grade medial compartment DJD and osteophyte. She has a small effusion to her knee today, which she relates it being relatively usual for her as having pain shooting up and down the back of her leg. She relates as being more newer onset, has no evidence of infection. Her white count is within normal limits. She has an arthritic right knee with retained 2 tam in her tibial tubercle, which will most likely interfere with MRI imaging at this point. I discussed the situation with her knee. She is concerned with regard to the [employer] as far as where she needs to be referred. So we will look into this for her as well. At this point, her clinical examination is not consistent with any type of an acute infectious etiology. She would be workup as an outpatient for severe endstage DJD and probable total joint arthroplasty. She could in the meanwhile have a corticosteroid injection or viscosupplementation as a palliative measure. I have discussed with her and we will continue to follow with you. BENIGNO
[2019-02-02] MEDS: IPRATROPIUM BROMIDE NEB SOLN 0.02% 2.5 ML VIAL INH SCH ×4 (01:37→19:47)
[2019-02-02] MEDS: LEVALBUTEROL 1.25MG/0.5ML NEB INH SCH ×4 (01:38→19:47)
[2019-02-02] MEDS: HYDROCODONE/ACETAMINOPHEN 10/325 TAB PO PRN ×3 (01:45→21:29)
[2019-02-02] MEDS: LEVOTHYROXINE SODIUM 50 MCG TABLET PO SCH (06:37)
[2019-02-02] MEDS: GABAPENTIN 300 MG CAP PO SCH ×3 (08:18→21:22)
[2019-02-02] MEDS: DOXYCYCLINE HYCLATE 100 MG CAP PO SCH ×2 (08:18→21:22)
[2019-02-02] MEDS: clonazePAM 1 MG TAB PO SCH ×3 (08:18→21:21)
[2019-02-02] MEDS: BUDESONIDE/FORMOTEROL FUMARATE 80/4.5 60 PUFFS/INHALER INH SCH ×2 (08:19→21:29)
[2019-02-02] MEDS: PANTOprazole 40 MG TAB PO SCH ×2 (08:19→21:22)
[2019-02-02] MEDS: predniSONE 20 MG TAB PO SCH (08:19)
[2019-02-02] MEDS: ENOXAPARIN INJ 40 MG/0.4 ML SYR SQ SCH (08:19)
[2019-02-02] MEDS: dilTIAZem HCL 240 MG CAPCR PO SCH (08:20)
[2019-02-02] MEDS: INSULIN ASPART 100 UNITS/ML 3 ML PEN SC SCH ×4 (08:20→20:46)
[2019-02-02] MEDS: INSULIN GLARGINE SOLOSTAR 100 UNITS/ML 3 ML PEN SQ SCH (08:20)
[2019-02-02] MEDS: NICOTINE 14 MG/24 HR PATCH TD SCH (08:21)
[2019-02-02 08:43] LABS: BUN Creatinine Ratio 25.7 (10-20); Calcium 9.2 mg/dl (8.5-10.1); Creatinine Clr Calc Pharmacy 108.7 ml/min; Est GFR (African American) 90.1; Est GFR (Non-African American) 77.8; Potassium 4.8 mmol/L (3.5-5.1)
[2019-02-02] MEDS ORDERED: BUTALBITAL/ACETAMIN/CAFFEINE TAB PO STA (10:01)
--- NOTE | 2019-02-02 17:07 | Hospitalist Progress Note ---
Date of Service February 02, 2019 Assessment & Plan (1) Acute hypoxemic respiratory failure: Acute hypoxemic respiratory failure Likely related to acute bronchitis Could have underlying COPD Vs Obesity hypoventilation syndrome Ongoing tobacco use disorder CTA:No PE. No airspace consolidation or pleural effusion. Cardiomegaly. Mild diffuse peribronchial thickening suggests reactive air disease. Clinical correlation will be required. Supplemental oxygen as needed Titrate oxygen to keep saturations 90-92% Counseled to quit smoking Continue doxycycline, prednisone Continue bronchodilators, Singulair, Symbicort Appreciate pulmonary input Advised to get pulmonary function test, sleep study as outpatient Continue current management Saturating well on 2 L of nasal cannula Recurrent falls/unwitnessed syncopal events In setting of use of home neuropsychotropic/opioid medications Patient denies any recent change in her medications/dosing Monitor on telemetry to rule out arrhythmias Orthostatics: Negative ECHO: Normal LV chamber size, mild concentric LVH, normal LV systolic function, EF 60 to 65%, no segmental left ventricular wall motion abnormalities, grade 1 diastolic dysfunction, no significant valvular pathology. EEG:normal drowsy and sleep EEG. No epileptiform activity is recorded. PT/OT Mood/anxiety disorder Stable Continue home medications Hypothyroidism TSH normal Continue levothyroxine Chronic fluid retention ECHO suggestive of grade 1 diastolic dysfunction with normal EF ABD USD:No evidence of abdominal ascites. May need diuretics if continues to worsen Low salt diet, fluid restriction Leg swelling Venous Doppler:No DVT within the right or left lower extremity. Hyperglycemia Hb A1C: 5.8 Diet changes Traumatic right knee effusion: H/O multiple surgeries by Dr. Teja Rangel X ray: No acute fracture of the right tibia or fibula. Knee X ray:No acute fracture. Moderate to severe right knee osteoarthritis. Postoperative findings within the proximal right tibia. Hip/Pelvic X ray:No acute fracture within the pelvis or hips. Foot X ray:No acute fracture or dislocation within the right foot. Femur X ray:No acute fracture of the right femur. Moderate to severe right knee osteoarthritis. Small right knee joint effusion. Ankle X ray:No acute fracture or dislocation within the right ankle. Right ankle soft tissue swelling. Moderate posterior and plantar calcaneal spurring. Appreciate Orthopedics Input Does not appear to be acute infectious etiology Knee pain likely due to severe end-stage DJD Likely will need total joint arthroplasty Corticosteroid injection or viscosupplementation as per Ortho Diarrhea: No diarrhea since hospitalization R/O C.diff if reoccurs DVT Px: Lovenox SQ Code Status: Full code Disposition: PT/OT: Recommends inpatient rehab Subjective Patient is seen and examined bedside Complains of knee pain, headache today Had chest pain yesterday evening which currently resolved Less cough Denies any shortness of breath, dizziness, nausea, Abd pain Offers no other complaints Review of Systems Review of Systems: All systems reviewed & are unremarkable except as noted in HPI & below Physical Exam Physical Exam: Physical Exam: Vitals signs as noted above General Appearance:Obese, no apparent distress Head: normocephalic, Atraumatic Eyes: normal inspection, EOMI Neck: supple, Trachea midline Respiratory/Chest: Decreased breath sounds, faint wheezes Cardiovascular: S1, S2, No murmur Abdomen/GI:Soft, Non tender, Bowel sounds present Extremities/Musculoskelatal:normal inspection, 1+ B/L edema Neurologic/Psych:AAOX3, grossly no focal neurological deficits Skin: normal color, warm Results & Data Vital Signs (Past 12 Hours) Vital Signs Temp Pulse Pulse Resp BP BP Pulse Ox 02/02/19 15:24 37.2 C 69 18 139/68 97 02/02/19 14:49 77 18 95 02/02/19 11:30 37 C 70 18 90/51 L 95 02/02/19 07:20 36.5 C 63 113/74 100 02/02/19 07:11 66 18 96
[2019-02-02] MEDS: TRAZODONE HCL 100 MG TAB PO SCH (21:21)
[2019-02-02] MEDS: MONTELUKAST SOD 5 MG CHEWABLE TAB PO SCH (21:22)
[2019-02-03] MEDS: LEVALBUTEROL 1.25MG/0.5ML NEB INH SCH ×4 (02:04→19:11)
[2019-02-03] MEDS: IPRATROPIUM BROMIDE NEB SOLN 0.02% 2.5 ML VIAL INH SCH ×4 (02:04→19:11)
[2019-02-03] MEDS: HYDROCODONE/ACETAMINOPHEN 10/325 TAB PO PRN ×3 (03:26→20:55)
[2019-02-03] MEDS: LEVOTHYROXINE SODIUM 50 MCG TABLET PO SCH (05:56)
[2019-02-03 07:15] LABS: BUN Creatinine Ratio 21.5 (10-20); Calcium 8.7 mg/dl (8.5-10.1); Creatinine Clr Calc Pharmacy 91.2 ml/min; Est GFR (African American) 72.7; Est GFR (Non-African American) 62.7; Potassium 4.5 mmol/L (3.5-5.1)
[2019-02-03] MEDS: INSULIN GLARGINE SOLOSTAR 100 UNITS/ML 3 ML PEN SQ SCH (08:41)
[2019-02-03] MEDS: PANTOprazole 40 MG TAB PO SCH ×2 (08:41→20:58)
[2019-02-03] MEDS: GABAPENTIN 300 MG CAP PO SCH ×3 (08:41→20:57)
[2019-02-03] MEDS: predniSONE 20 MG TAB PO SCH (08:42)
[2019-02-03] MEDS: NICOTINE 14 MG/24 HR PATCH TD SCH (08:43)
[2019-02-03] MEDS: DOXYCYCLINE HYCLATE 100 MG CAP PO SCH ×2 (08:43→20:57)
[2019-02-03] MEDS: BUDESONIDE/FORMOTEROL FUMARATE 80/4.5 60 PUFFS/INHALER INH SCH ×2 (08:43→20:56)
[2019-02-03] MEDS: dilTIAZem HCL 240 MG CAPCR PO SCH (08:44)
[2019-02-03] MEDS: INSULIN ASPART 100 UNITS/ML 3 ML PEN SC SCH ×4 (08:44→21:11)
[2019-02-03] MEDS: ENOXAPARIN INJ 40 MG/0.4 ML SYR SQ SCH (08:45)
[2019-02-03] MEDS: clonazePAM 1 MG TAB PO SCH ×3 (08:50→20:55)
[2019-02-03 14:42] LABS: Amobarbital, Urine Conf NEGATIVE NG/ML (CUTOFF=100); Butalbital, Urine 284 NG/ML (CUTOFF=100); Hydrocodone Urine 268 NG/ML (CUTOFF=50); Hydromor Urine NEGATIVE NG/ML (CUTOFF=50); Morphine Urine NEGATIVE NG/ML (CUTOFF=50); Norhydrocodone Conf Ur 108 NG/ML (CUTOFF=50); Phenobarbital, Urine NEGATIVE NG/ML (CUTOFF=100); Secobarbital, Urine Conf NEGATIVE NG/ML (CUTOFF=100)
[2019-02-03 14:43] LABS: Noroxycodone Urine 70 NG/ML (CUTOFF=50); Oxycodone Urine 165 NG/ML (CUTOFF=50)
[2019-02-03] MEDS ORDERED: BUPIVACAINE/EPINEPHRINE 0.25% 1:200,000 30 ML VIAL INFIL ONE (18:30)
[2019-02-03] MEDS ORDERED: methylPREDNISolone acetate 80 MG/ML VIAL IA ONE (18:30)
[2019-02-03] MEDS ORDERED: ETHYL CHLORIDE AER SPR 100 ML CAN EXT ONE (18:30)
[2019-02-03] MEDS: POLYETHYLENE (MIRALAX) 17 GM PACK PO PRN (20:03)
--- NOTE | 2019-02-03 20:43 | Hospitalist Progress Note ---
Date of Service February 03, 2019 Assessment & Plan (1) COPD exacerbation: Improved. Continue prednisone, doxycycline, Symbicort. Smoking cessation. (2) Syncope: Head CT negative. No significant arrhythmias. CTA chest negative for pulmonary embolism. EEG normal. Suspect vasovagal syncope secondary to knee pain. (3) Bilateral knee pain: Chronic and acute, exacerbated by fall. Ortho consulted. (4) Fall: PT, OT. (5) DVT prophylaxis: SQ enoxaparin. Ambulate. (6) Discharge planning issues: Discharge disposition to be determined. Medical follow-up with Dr. Olmedo. Subjective Recheck for multiple problems. Patient seen in their room around 16:30. No further chest pain. Cough / SOB improved. Ongoing right knee pain. Review of Systems: Constitutional- no fever. Cardiac- as noted above. Pulmonary- as noted above. GI- no nausea, vomiting, diarrhea, melena, hematochezia. - no urinary symptoms. Otherwise, as noted above. Physical Exam Constitutional: no acute distress Respiratory: no respiratory distress Auscultation: + wheezes (diffuse, mild) Cardiovascular: Rate/Rhythm: regular rate and regular rhythm Heart Sounds: no gallop Vessels: no JVD Extremities: no calf tenderness and no edema Gastrointestinal (Abdomen): normal bowel sounds, soft, nontender, no hepatosplenomegaly Musculoskeletal: Extremities: + extremities abnormal to inspection (small effusion, tenderness right knee; no erythema or warmth) Skin: no rashes, warm and dry Psychiatric: Orientation: alert and oriented x 3 Results & Data Vital Signs (Past 12 Hours) Vital Signs Temp Pulse Resp BP Pulse Ox 02/03/19 19:14 36.8 C 55 L 16 118/59 L 90 02/03/19 19:12 68 18 95 02/03/19 15:05 36.4 C L 72 20 123/69 93 02/03/19 14:11 18 95
[2019-02-03] MEDS: MONTELUKAST SOD 5 MG CHEWABLE TAB PO SCH (20:55)
[2019-02-03] MEDS: TRAZODONE HCL 100 MG TAB PO SCH (20:56)
[2019-02-04] MEDS: LEVALBUTEROL 1.25MG/0.5ML NEB INH SCH ×3 (02:12→14:14)
[2019-02-04] MEDS: IPRATROPIUM BROMIDE NEB SOLN 0.02% 2.5 ML VIAL INH SCH ×3 (02:12→14:14)
[2019-02-04] MEDS: POLYETHYLENE (MIRALAX) 17 GM PACK PO PRN (03:33)
[2019-02-04] MEDS: HYDROCODONE/ACETAMINOPHEN 10/325 TAB PO PRN ×2 (03:33→11:40)
[2019-02-04] MEDS: LEVOTHYROXINE SODIUM 50 MCG TABLET PO SCH (06:06)
[2019-02-04 06:57] LABS: Hematocrit (blood only) 40.5 % (37-47); Hemoglobin 13.1 g/dL (12.0-16.0); Mean Corpuscular Hgb Conc 32.3 g/dL (32-36); Mean Corpuscular Volume 95.7 fL (80-100); Mean Platelet Volume 8.7 fL (7.4-10.4); Platelet Count 165 K/uL (130-400); RDW Coefficient of Variation 13.1 % (11.5-14.5); RDW Standard Deviation 45.1 fL (36.4-46.3); Red Blood Count 4.23 M/uL (4.2-5.4); White Blood Count 7.56 K/uL (4.8-10.8)
[2019-02-04] MEDS: ENOXAPARIN INJ 40 MG/0.4 ML SYR SQ SCH (08:41)
[2019-02-04] MEDS: dilTIAZem HCL 240 MG CAPCR PO SCH (08:41)
[2019-02-04] MEDS: predniSONE 20 MG TAB PO SCH (08:41)
[2019-02-04] MEDS: GABAPENTIN 300 MG CAP PO SCH ×2 (08:42→14:19)
[2019-02-04] MEDS: PANTOprazole 40 MG TAB PO SCH (08:42)
[2019-02-04] MEDS: DOXYCYCLINE HYCLATE 100 MG CAP PO SCH (08:42)
[2019-02-04] MEDS: NICOTINE 14 MG/24 HR PATCH TD SCH (08:42)
[2019-02-04] MEDS: BUDESONIDE/FORMOTEROL FUMARATE 80/4.5 60 PUFFS/INHALER INH SCH (08:43)
[2019-02-04] MEDS: INSULIN ASPART 100 UNITS/ML 3 ML PEN SC SCH ×2 (08:44→11:42)
[2019-02-04] MEDS: INSULIN GLARGINE SOLOSTAR 100 UNITS/ML 3 ML PEN SQ SCH (08:45)
[2019-02-04] MEDS: clonazePAM 1 MG TAB PO SCH ×2 (08:49→14:19)
--- NOTE | 2019-02-04 15:29 | Consultation Report ---
DATE OF CONSULTATION: 02/04/2019 CONSULTATION AND PROCEDURE NOTE PERTINENT HISTORY: This is a 58-year-old female with chronic ongoing right knee pain. She sustained a fall and was admitted to the hospital in the hospitalist service, has multiple medical comorbidities and obesity. She had a Maquet, Mary Lou procedure of the right knee at the age of 21 by another provider in [place], [place] many years ago. She now has right knee pain. She has difficulty with ambulation, weightbearing and walking. She has difficulty with flexion and extension due to pain and guarding and some swelling in the knee which she notes is fairly normal for her. PHYSICAL EXAMINATION: Right knee demonstrates well-healed large anterior scar to the knee. Flexion and extension is limited due to pain and guarding and mild effusion. She has tenderness to palpation diffusely throughout the knee joint capsule. There is no increased warmth, streaking or redness. Palpable pulses are noted. Scant hair growth, bilateral lower extremities. Radiographs and laboratories reviewed. IMPRESSION: 1. Right knee acute on chronic degenerative joint disease. 2. Recent fall, right knee. 3. Right knee effusion. 4. Right knee pain. RECOMMENDATION: Ambulation as tolerated. Alternating heat and cold. We will give steroid injection today at bedside and follow up with Dr. Castro or Dr. Rodarte as an outpatient. PROCEDURE NOTE: After obtaining verbal consent from the patient, the patient's right knee was then sterilely prepped with Betadine and alcohol and then 1 mL of 80 mg Depo-Medrol and 6 mL of 0.5% Marcaine with epinephrine was injected into the right knee joint using standard sterile technique. The patient tolerated the injection well. Needle was removed in its entirety without any breakage. A sterile compressive dressing was applied over the site. The patient was given instructions to ice and elevate the knee for a period of 48-72 hours and avoid running, jumping and pounding. Follow up in the office with Dr. Rodarte, with Dr. Castro as necessary. Thank you for the opportunity to consult in the care of this patient.
--- NOTE | 2019-02-04 16:03 | Hospitalist Progress Note ---
Date of Service February 04, 2019 Assessment & Plan (1) COPD exacerbation: Seen in consultation by Pulmonary Medicine. [place] to have combination of asthma and COPD with exacerbation secondary to bronchitis. Treated with prednisone, doxycycline, Symbicort with improvement. Smoking cessation discussed. Discharged on doxycycline, prednisone, Symbicort, albuterol HFA as needed. Outpatient PFTs recommended after resolution of current exacerbation. (2) Syncope: Head CT negative. No significant arrhythmias. CTA chest negative for pulmonary embolism. EEG normal. Suspect vasovagal syncope secondary to knee pain. (3) Bilateral knee pain: Chronic and acute, exacerbated by fall. Ortho consulted. Right knee injected with improvement of symptoms. Continue usual outpatient analgesics. Outpatient follow-up with Orthopedics. (4) Fall: PT, OT. (5) DVT prophylaxis: SQ enoxaparin. Ambulating. (6) Discharge planning issues: Discharge to home. Medical follow-up with Dr. Olmedo. Orthopedics follow[place]up with [facility] [place]. Subjective Recheck for multiple problems. Patient seen in their room around 15:30. Cough and dyspnea much better. No fever. No nausea, vomiting, diarrhea. Right knee injected by orthopedics with improvement of pain. Ambulating without difficulty. Review of Systems: Constitutional- no fever. Cardiac- as noted above. Pulmonary- as noted above. GI- no nausea, vomiting, diarrhea, melena, hematochezia. - no urinary symptoms. Otherwise, as noted above. Physical Exam Constitutional: no acute distress Respiratory: no respiratory distress Auscultation: + wheezes (diffuse, mild) Cardiovascular: Rate/Rhythm: regular rate and regular rhythm Heart Sounds: no gallop Vessels: no JVD Extremities: no calf tenderness and no edema Gastrointestinal (Abdomen): normal bowel sounds, soft, nontender, no hepatosplenomegaly Musculoskeletal: Extremities: + extremities abnormal to inspection (small effusion, tenderness right knee; no erythema or warmth) Skin: no rashes, warm and dry Psychiatric: Orientation: alert and oriented x 3 Results & Data Vital Signs (Past 12 Hours) Vital Signs Temp Pulse Pulse Resp BP Pulse Ox 02/04/19 15:02 36.7 C 69 19 143/83 H 90 02/04/19 14:15 64 18 93 02/04/19 10:57 36.6 C 66 19 100/63 91 02/04/19 08:00 70 02/04/19 07:07 75 18 93 02/04/19 06:59 36.9 C 65 19 127/69 91
--- NOTE | 2019-02-05 11:31 | Discharge Summary ---
Date of Service Date of Admission: 02/01/19 Date of Discharge: 02/04/19 Admission HPI Per Admitting Provider History obtained from patient and records. Medical history significant for COPD, PAF, mitral valve prolapse as per patient account, ongoing tobacco abuse, mood/anxiety disorder, chronic pain, hypothyroidism, history of tickborne disease. Recent confinement March 2018 for anaphylaxis secondary to wasp sting. Patient not feeling well the last week. Achy all over. 5 days ago patient had an unwitnessed syncopal event at home leading to right leg injury. Patient claims she was on before for a few hours. Since then patient would pass out 3 times/day because of achy right leg pain going up. No tongue biting/incontinence episodes. Yesterday patient noted junky cough symptoms associated with central chest pressure, achy headache, nausea, no emesis. Stools kind of loose. Patient denies abdominal pain. Patient also endorses symptoms of fluid retention, unquantified weight gain over the last few months. Patient does not feel rested in the morning despite sleeping at night. At the ER, patient received IV Decadron, azithromycin for COPD exacerbation. Patient noted lower abdominal queasiness after medication administration at the ER. Admission Exam Per Admitting Provider GENERAL: Comfortable, obese, no respiratory distress, currently having a breathing treatment SKIN: Normal color, warm HEENT: [place] palpebral conjunctivae, no ptosis, dry buccal mucosa NECK : Supple, short, no tenderness CHEST : Decreased breath sounds, expiratory wheezes , no tenderness HEART : RRR, systolic murmur ABDOMEN: Some distention, nontender EXTREMITIES : Minimal bilateral LE swelling, knee tendernessR, no other conspicuous deformities noted NEUROLOGIC : Coherent, no facial asymmetry, no other gross focality Principal Diagnosis exacerbation COPD due to bronchitis syncope- 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 Discharge Data Allergies Allergy/AdvReac Type Severity Reaction Status Date / Time bee venom protein (honey bee) Allergy Severe ANAPHYLAXIS Verified 01/31/19 22:59 codeine Allergy Severe DIFFICULTY Verified 01/31/19 22:59 BREATHING ibuprofen Allergy Unknown swelling Verified 01/31/19 22:59 Consultations 01/31/19 23:09 ED Decision to Admit Stat 02/01/19 03:08 Consult Case Management - Discharge Planning Routine Consult Orthopedic Surgery Routine 02/01/19 06:02 Consult Pulmonology Routine Ordered Studies 01/31/19 23:18 CT angio chest PE protocol Urgent 01/31/19 23:31 CT head/brain wo con Urgent 02/01/19 01:16 US abdomen limited Urgent US venous doppler LE Urgent Hospital Course (1) COPD exacerbation: Seen in consultation by Pulmonary Medicine. [place] to have combination of asthma and COPD with exacerbation secondary to bronchitis. Treated with prednisone, doxycycline, Symbicort with improvement. Smoking cessation discussed. Discharged on doxycycline, prednisone, Symbicort, albuterol HFA as needed. Outpatient PFTs recommended after resolution of current exacerbation. (2) Syncope: Head CT negative. No significant arrhythmias. CTA chest negative for pulmonary embolism. EEG normal. Suspect vasovagal syncope secondary to knee pain. (3) Bilateral knee pain: Chronic and acute, exacerbated by fall. Ortho consulted. Right knee injected with improvement of symptoms. Continue usual outpatient analgesics. Outpatient follow-up with Orthopedics. (4) Fall: PT, OT. (5) DVT prophylaxis: SQ enoxaparin. Ambulating. (6) Discharge planning issues: Patient not interested in inpatient rehab. Discharged to home. Medical follow-up with Dr. Olmedo. Orthopedics follow-up with [facility] in the [place]. Total Time Total Time Spent Total Time Spent (In Minutes): 40 Discharge Plan Discharge Items Patient Disposition: Home - Self-Care Reason For Visit: cough, knee pain Discharge Diagnosis: bronchitis exacerbation of asthma / COPD arthritis of knee Condition: Good Discharge Goals: Decrease discomfort and Improve disease control Activity: As commented below Activity Comment: as tolerated Non-emergency contact: Primary Care Provider, Hospitalist and Surgeon Call non-emergency contact if: you have any medication questions Follow-up/Referrals: Quinton Rodarte, [Surgeon] - (Please call office for appointment.) Cosmo Olmedo M.D. [Primary Care Provider] - (02/07/19) Diet: Heart Healthy and Low Sodium (2gm) Addtl Provider Instructions: It is important that you quit smoking. Please discuss with your family doctor. The tooth cutter clutch thought that you probably have a combination of asthma and COPD. You should have pulmonary function tests done to see how bad your lungs are. Use Symbicort 2 puffs twice a day. Take montelukast (Singulair) each evening. Use albuterol (Proair) inhaler 2 puffs every 6 hours as needed for wheezing / shortness of breath. (or use your nebulizer as instructed) Seek medical attention if you have: * temperature above 101 * chest pain or trouble breathing * abdominal pain, nausea, vomiting * diarrhea, dark stools or bloody stools * any unanswered questions or concerns Call 911 if symptoms are severe. Call if you have any questions or problems. My cell # is [phone]. You can also reach a [facility] hospitalist on duty at [facility] 24 hours a day by calling [phone]. Prescriptions: New doxycycline hyclate 100 mg tablet 100 mg PO BID 4 Days Qty: 8 RF: 0 prednisone 10 mg tablet 20 mg PO DAILY Qty: 8 RF: 0 Symbicort 80-4.5 mcg/actuation HFA aerosol inhaler 2 puffs INH BID Qty: 6.9 RF: 0 montelukast 10 mg tablet 10 mg PO PM Qty: 30 RF: 1 albuterol sulfate [ProAir HFA] 90 mcg/actuation HFA aerosol inhaler 2 puffs INH Q6H PRN (Reason: shortness of breath or wheezing) Qty: 18 RF: 1 Continued hydrocodone-acetaminophen 10-325 mg Tablet 1 tab PO Q6H PRN (Reason: Pain) RF: 0 omeprazole 40 mg Capsule,Delayed Release(Dr/Ec) 40 mg PO BID RF: 0 methocarbamol [Robaxin-750] 750 mg Tablet 750 mg PO BID PRN (Reason: Muscle Spasm) RF: 0 trazodone 100 mg Tablet 200 mg PO HS RF: 0 levothyroxine 50 mcg Tablet 50 mcg PO DAILY RF: 0 clonazepam 2 mg Tablet 2 mg PO TID RF: 0 gabapentin 300 mg Capsule 300 mg PO TID RF: 0 epinephrine [EpiPen] 0.3 mg/0.3 mL Auto-Injector 0.3 mg IM DIRECTED PRN (Reason: Allergic Reaction) RF: 0 diltiazem HCl 240 mg Capsule,Extended Release 24hr 240 mg PO QAM RF: 0 furosemide 40 mg Tablet 40 mg PO BID PRN (Reason: Fluid Retention) RF: 0 Stand-Alone Forms: Call Back Authorization, My [facility] Discharge Orders: Discharge Order (Routine); Ordered 02/04/19 Ordered By: Quincy Pink Admission Data Admit Date/Time: 02/01/19 01:19 Attending Provider: Quincy Pink Admit Provider: Calixto Gant Primary Care Provider: Cosmo Olmedo Other Providers: Calixto Gant ; Jaleel Lau ; Khoi Castro ; Brijesh Milian ; Kayleen Humphreys ; Quinton Rodarte ; Anali Kruger ; Judd Goodman ; Eliu Alvarez ; Wilbur Steele ; Eliu Broussard Andrew J. ; Wilbur Valle ; Deniz Wolfe ; Jeremy Rodríguez ; Kofi De Paz ; Ramon Sun ; Joshua Rubio ; Bart Juares ; Vladimir Hardy ; Anali Santiago ; Jose Antonio Blackmon ; Teja Yates ; Quincy Leal ; Wiley Quick ; Bernardino Vargas ; Angelita Davies ; Porfirio Araujo ; Shahida Frey ; Calixto Sol ; Tamar Ravi ; Ezekiel Alvarado ; Gerda Ball ; Jazmyn Yusuf ; Abad Barraza ; Jl Melton ; Deniz Loya ; Alex Fish Service: Telemetry Other Interventions: Discharge Summary Assessment (RN) Last Done: 02/04/19 16:07 DC Date/Time DO NOT enter until pt leaves facility: 02/04/19 17:04
== END 2019-02-04 17:04 | disposition home or self-care (01) | DRG 189 ==
LOC: ED 21:00 → 2W 02-01 01:19 → SUATTDRO 02-01 01:19 → 2W 02-01 02:30 → 2S 02-01 19:20

== ENCOUNTER 2019-05-30 12:08 | Inpatient (IN) ==
[2019-05-30] MEDS ORDERED: LEVALBUTEROL HCL 1.25 MG/3 ML NEB NEB STA ×3 (12:52→16:49)
[2019-05-30] MEDS ORDERED: ACETAMINOPHEN 1,000 MG/100 ML VIAL IV STA ×2 (12:54→16:49)
[2019-05-30] MEDS ORDERED: methylPREDNISolone 60 MG in SYRINGE 1 ML IV STA (12:54)
--- NOTE | 2019-05-30 13:17 | XRay Report ---
XR chest 1V portable CLINICAL HISTORY: 59 years-old Female presenting with Chest Pain. TECHNIQUE: Portable upright AP view of the chest was obtained. COMPARISON: 01/31/2019. FINDINGS: Atherosclerosis of the aortic arch. Cardiac silhouette enlarged. Pulmonary vascular prominence is inc reased from prior. No focal opacity. No large effusion or pneumothorax. Degenerative changes of the t horacic spine. Cervical metallic fusion hardware. Upper abdomen normal. IMPRESSION: 1. Cardiomegaly with mild volume overload. No other convincing evidence of acute cardiopulmonary dis ease. Electronically signed by: Joshua Boyd M.D. 05/30/2019 1:15 PM
[2019-05-30] MEDS ORDERED: methylPREDNISolone 125 MG/2 ML VIAL ONE (13:42)
[2019-05-30 14:21] LABS: Basophils # (auto) 0.03 K/uL (0-0.2); Basophils % (auto) 0.4 %; Eosinophils % (auto) 1.2 %; Hematocrit (blood only) 44.8 % (37-47); Hemoglobin 14.8 g/dL (12.0-16.0); Immature Granulocytes # (auto) 0.02 K/uL (0.00-0.02); Immature Granulocytes % (auto) 0.2 %; Lymphocytes # (auto) 3.06 K/uL (1.2-3.4); Lymphocytes % (auto) 36.2 %; Mean Corpuscular Hemoglobin 32.2 pg (25-34); Mean Corpuscular Volume 97.4 fL (80-100); Mean Platelet Volume 8.7 fL (7.4-10.4); Monocytes # (auto) 0.63 K/uL (0.11-0.59); Monocytes % (auto) 7.5 %; Neutrophils # (auto) 4.61 K/uL (1.4-6.5); Neutrophils % (auto) 54.5 %; Platelet Count 166 K/uL (130-400); RDW Coefficient of Variation 13.2 % (11.5-14.5); RDW Standard Deviation 46.9 fL (36.4-46.3); White Blood Count 8.45 K/uL (4.8-10.8)
[2019-05-30 14:32] LABS: Alanine Aminotransferase 16 U/L (12-78); Albumin Level 3.6 gm/dl (3.4-5.0); Aspartate Aminotransferase 8 U/L (15-37); BUN Creatinine Ratio 21.3 (10-20); Blood Urea Nitrogen 20 mg/dl (7-18); Calcium 9.2 mg/dl (8.5-10.1); Carbon Dioxide 31 mmol/L (21-32); Chloride 104 mmol/L (98-107); Est GFR (African American) 75.9; Est GFR (Non-African American) 65.5; Glucose 85 mg/dl (70-99); Lipase 90 U/L (73-393); Potassium 4.3 mmol/L (3.5-5.1); Sodium 141 mmol/L (136-145)
[2019-05-30 14:37] LABS: Alkaline Phosphatase 106 U/L (45-117); Bilirubin,Total 0.4 mg/dl (0.2-1); Creatine Kinase 30 U/L (26-192); Creatine Kinase MB < 1.0 ng/ml (0.5-3.6); Globulin 3.6 gm/dl (2.5-4.0); NT Pro B Type Natriuretic Pept 35 pg/ml (0-900); Total Protein 7.2 gm/dl (6.4-8.2); Troponin I < 0.015 ng/ml (0-0.045)
--- NOTE | 2019-05-30 15:53 | CT Scan Report ---
CT head/brain wo con CLINICAL HISTORY: 59 years-old Female presenting with Pt c/o AMS. TECHNIQUE: Multidetector CT imaging of the head was performed without the use of intravenous contrast . IV contrast: None. One or more dose lowering techniques were used consistent with the principles of ALARA (as low as reasonably achievable), including automatic exposure control, mA or kV adjustment t o individual patient size, and/or use of iterative reconstruction. COMPARISON: 01/31/2019. CT DOSE (mGy.cm): The estimated cumulative dose is 537.48 mGy.cm. FINDINGS: Central Supply Worker topogram: Unremarkable. Ventricles and sulci normal in size. No hemorrhage. Brain parenchyma normal in appearance with preser anuradha yap-white differentiation. No acute territorial infarct. No mass effect or midline shift. No ext ra-axial fluid collection. Paranasal sinuses and mastoid air cells clear. Calvarium intact. IMPRESSION: 1. No acute intracranial abnormality. Electronically signed by: Joshua Boyd M.D. 05/30/2019 3:52 PM
[2019-05-30] MEDS ORDERED: MAGNESIUM SULFATE / D5W 1 GM/100 ML BAG IV ONE (16:49)
[2019-05-30 18:16] LABS: Appearance Urine Clear (Clear); Bacteria Urine Automated Negative (Negative); Bilirubin Urine Negative (Negative); Blood Urine Negative (Negative); Cast Urine Automated 0 /lpf (0-5); Color Urine Yellow; Epithelial Cell Urine Auto >30 /lpf (0-5); Glucose Urine UA Negative (Negative); Ketones Urine Negative (Negative); Leukocyte Esterase Urine Trace (Negative); Nitrite Urine Negative (Negative); Protein Urine Negative (Negative); RBC Urine Automated 0-4 /hpf (0-4); Specific Gravity Urine 1.022 (1.000-1.030); Urobilinogen Urine Negative (Negative); pH Urine 6.5 (4.5-7.5)
--- NOTE | 2019-05-30 18:47 | History & Physical Report ---
Date of Service May 30, 2019 Assessment & Plan (1) Acute respiratory failure with hypoxia: -Admit to [facility] with telemetry -Patient presenting from home with reports of 1 week of increasing productive cough and shortness of breath -upon arrival to the ED, patient was found to be hypoxic on room air -Suspected underlying COPD given extensive smoking history; however patient has never had formal PFTs to confirm diagnosis -No signs of pneumonia on CXR -around the clock nebs, IV steroids, empiric Levaquin, pulmonary toilet with flutter valve and IS -wean O2 as able -when patient was admitted 01/2019, she was to start Symbicort however reports she cannot afford it and has not followed up with pulmonary (2) Chest pain: -likely due to persistent coughing -initial trop negative, EKG without acute ST changes -continue to cycle cardiac enzymes (3) Syncope: -likely vasovagal due to severe coughing, hypoxia -head CT negative -monitor on tele for arrhythmias (4) Black stools: -hgb stable at 14.8 -check stool for heme occult (5) Micheal's thyroiditis: -continue levothyroxine (6) GERD (gastroesophageal reflux disease): -continue PPI (7) DVT prophylaxis: -SQ Lovenox History of Present Illness Chief Complaint: Cough, Shortness of Breath Primary Care Provider: Cosmo Olmedo M.D. 59-year-old female who presents to the ED with cough and shortness of breath. Patient reports she has been sick for the past 1 week. was sick with URI symptoms recently as well. Patient reports persistent cough productive for white/yap sputum. She also has had worsening shortness of breath despite use of nebulizer 5-6 times per day at home. She denies fevers and chills. She also reports some episode of chest pain that happened mostly with coughing however will happen randomly as well. Chest pain resolves on its own. She reports she has had multiple syncopal events. She reports that she will get a severe coughing attack and suspects her oxygen level drops and then she passes out. Over the past few days, she has had a poor appetite, nausea, vomiting, diarrhea. She denies abdominal pain. She denies hematemesis and coffee-ground emesis. She reports stools have been black, loose, very foul-smelling. She denies any urinary symptoms. In the ED, patient is found to be hypoxic on room air at 87%. This improved with 3 L of oxygen via nasal cannula. She was given IV Solu- Medrol, IV magnesium, nebulizer treatment, Tylenol. CXR does not show any acute cardiopulmonary findings and head CT is negative as well. Allergies Allergy/AdvReac Type Severity Reaction Status Date / Time bee venom protein (honey bee) Allergy Severe ANAPHYLAXIS Verified 05/30/19 14:35 codeine Allergy Severe DIFFICULTY Verified 05/30/19 14:35 BREATHING ibuprofen Allergy Unknown swelling Verified 05/30/19 14:35 Home Medications Home Medications Medication Instructions Recorded Confirmed Type clonazepam 2 mg PO TID 01/31/19 05/30/19 History epinephrine [EpiPen] 0.3 mg IM DIRECTED PRN 01/31/19 05/30/19 History gabapentin 300 mg PO TID 01/31/19 05/30/19 History hydrocodone-acetaminophen 1 tab PO Q6H PRN 01/31/19 05/30/19 History levothyroxine 50 mcg PO DAILY 01/31/19 05/30/19 History omeprazole 40 mg PO BID 01/31/19 05/30/19 History trazodone 200 mg PO HS 01/31/19 05/30/19 History albuterol sulfate 1.25 mg INHALATION QID PRN 05/30/19 05/30/19 History gpbbijwpfa-[id number]-ymah 1 cap PO Q6H PRN 05/30/19 05/30/19 History [Fioricet] diltiazem HCl 180 mg PO DAILY 05/30/19 05/30/19 History Past Med/Surg History Medical History GERD (gastroesophageal reflux disease) (Chronic) Rib deformity (Chronic) s/p surgery History of hysterectomy (Chronic) Neuropathy (Chronic) Micheal's thyroiditis (Chronic) Atrial fibrillation (Resolved) Lyme disease (Resolved) Heart attack (Chronic) per patient, "in my 20s due to Lyme disease" COPD (chronic obstructive pulmonary disease) (Chronic) Bee sting allergy (Chronic) Surgical History History of tonsillectomy (Chronic) H/O neck surgery (Chronic) History of appendectomy (Chronic) History of surgery (Chronic) history of multiple leg surgeries Family History Mother Lung cancer Social History Preferred Language: Frisian Communication Ability: Effective Food And Beverage Server Required: No Beliefs That Will Affect Care: None marital status: / Current Living Situation: Significant Other Other Information That Helps Us Care for You: No Feels Safe at Home: Yes Safety Concerns: Feels Safe At This Time Smoking Status: Current every day smoker Tobacco Type: cigarettes ; Do You Dip or Chew Tobacco: No ; Second Hand Exposure: Yes ; Tobacco Cessation Education Requested by Patient: Yes Hx Alcohol Use: Yes Alcohol type: beer Alcohol Intake Frequency: Holidays/Special Occasions Hx Substance Use: No Review of Systems Review of Systems: ROS per HPI, all other systems reviewed and negative Physical Exam Constitutional: WD/WN, vitals as above + ill appearing and + obese; no acute distress Eyes: PERRL, conjunctivae normal, anicteric sclerae ENMT: external ear and nose normal, oropharynx normal Respiratory: normal respiratory effort, + cough and able to speak in complete sentences; no respiratory distress Auscultation: + diminished lung sounds, + rhonchi (Scattered) and + wheezes (Scattered, expiratory) Cardiovascular: Rate/Rhythm: regular rate and regular rhythm Vessels: normal peripheral pulses Extremities: no edema Gastrointestinal (Abdomen): normal bowel sounds, soft, nontender, no hepatosplenomegaly Musculoskeletal: no cyanosis or clubbing, extremities motor strength 5/5 Skin: no rashes, warm and dry Neurologic: PERRL, EOMI, accommodation nl, no face palsy, no dysarthria Psychiatric: A+Ox3, euthymic affect Results & Data Vital Signs (Past 12 Hours) Vital Signs Temp Pulse Pulse Resp BP BP BP 05/30/19 17:19 62 16 05/30/19 17:00 74 20 141/78 H 141/78 H 05/30/19 15:14 68 16 05/30/19 15:10 65 20 147/86 H 05/30/19 13:19 63 16 05/30/19 12:46 05/30/19 12:44 05/30/19 12:18 36.9 C 78 20 140/84 Pulse Ox 05/30/19 17:19 93 05/30/19 17:00 92 09/24/19 15:14 93 05/30/19 15:10 92 05/30/19 13:19 94 05/30/19 12:46 95 05/30/19 12:44 88 L 05/30/19 12:18 87 L Laboratory Results Short CBC 05/30/19 Range/Units 14:00 WBC 8.45 (4.8-10.8) K/uL Hgb 14.8 (12.0-16.0) g/dL Hct 44.8 (37-47) % Plt Count 166 (130-400) K/uL BMP 05/30/19 14:00 Sodium 141 Potassium 4.3 Chloride 104 Carbon Dioxide 31 BUN 20 H Creatinine 0.94 Glucose 85 Calcium 9.2 Cardiac Enzymes 05/30/19 Range/Units 14:00 Total Creatine Kinase 30 (26-192) U/L CK-MB (CK-2) < 1.0 (0.5-3.6) ng/ml Troponin I < 0.015 (0-0.045) ng/ml Liver Function 05/30/19 Range/Units 14:00 Total Bilirubin 0.4 (0.2-1) mg/dl AST 8 L (15-37) U/L ALT 16 (12-78) U/L Alkaline Phosphatase 106 (45-117) U/L Albumin 3.6 (3.4-5.0) gm/dl Urine 05/30/19 Range/Units 18:05 Urine Color Yellow Urine Appearance Clear (Clear) Urine pH 6.5 (4.5-7.5) Ur Specific Sparks 1.022 (1.000-1.030) Urine Protein Negative (Negative) Urine Glucose (UA) Negative (Negative) Diagnostic Findings CXR IMPRESSION: 1. Cardiomegaly with mild volume overload. No other convincing evidence of acute cardiopulmonary disease. HEAD CT IMPRESSION: 1. No acute intracranial abnormality. Code Status & VTE Plan Code Status Patient is a full code as per my discussion with her. VTE Prophylaxis Plan VTE Prophylaxis will be ordered: Yes Supervising Physician Co-Signing Physician Notes I have seen and examined the patient and have discussed the case with the provider above. I agree with the assessment and plan as stated with the follo wing exceptions. This appears to be consistent with a COPD exacerbation, not acute respiratory failure. She was hypoxic but improved with a small amount of supplemental oxygen via nasal canula and had no significant respiratory distress. She is an active smoker with some sputum changes and increased cough recently. Wheezing present in all lung hogan on exam. Pt is obese. She also reports a migraine headache, for which she takes Fioricet. We discussed the fact that she has been intolerant of PO recently, and dehydration may be contributing to her headache. We will try IVF before any Fioricet, especially in the setting of regular narcotic use to try to avoid medication interactions. Agree with steroids, nebs, Levaquin as above. ROS also revealed some dark stools that were foul-smelling and some abdominal discomfort that was rather nonspecific. Will hydrate overnight and monitor this. If it persists, would consider further investigation. Patient needs to be hydrated and given a trial of food. She reports being hungry now so will monitor for any symptoms with this overnight. DO López
[2019-05-30] MEDS ORDERED: ACETAMINOPHEN 325 MG TAB PO PRN (19:15)
[2019-05-30] MEDS ORDERED: ACETAMINOPHEN 325 MG TAB ONE (19:20)
[2019-05-30] MEDS ORDERED: SODIUM CHLORIDE 0.9% 1000ML 1,000 ML IV ONE (19:21)
[2019-05-30] MEDS ORDERED: PATIENT'S HEIGHT AND/OR WEIGHT NEEDED SCH (19:30)
[2019-05-30] MEDS: ALBUT/IPRATROP 3MG/0.5MG NEB 3 ML VIAL NEB SCH (21:03)
[2019-05-30] MEDS: clonazePAM 1 MG TAB PO SCH (21:23)
[2019-05-30] MEDS: LEVOFLOXACIN/D5W 500 MG/100 ML BAG IV SCH (21:30)
[2019-05-30] MEDS: methylPREDNISolone 40 MG in SYRINGE 0 ML IV SCH (21:32)
[2019-05-30] MEDS: TRAZODONE HCL 100 MG TAB PO SCH (21:33)
[2019-05-30] MEDS: GABAPENTIN 300 MG CAP PO SCH (21:34)
[2019-05-30] MEDS: PANTOprazole 40 MG TAB PO SCH (21:34)
[2019-05-30] MEDS: ENOXAPARIN INJ 40 MG/0.4 ML SYR SQ SCH (21:47)
[2019-05-31] MEDS: BUTALBITAL/ACETAMIN/CAFFEINE TAB PO PRN
[2019-05-31 02:14] LABS: Hemoglobin 14.3 g/dL (12.0-16.0); Mean Corpuscular Hemoglobin 31.6 pg (25-34); Mean Corpuscular Hgb Conc 33.3 g/dL (32-36); Mean Corpuscular Volume 95.1 fL (80-100); Mean Platelet Volume 8.8 fL (7.4-10.4); Platelet Count 165 K/uL (130-400); RDW Coefficient of Variation 12.9 % (11.5-14.5); RDW Standard Deviation 45.2 fL (36.4-46.3); Red Blood Count 4.52 M/uL (4.2-5.4); White Blood Count 7.32 K/uL (4.8-10.8)
[2019-05-31 02:32] LABS: BUN Creatinine Ratio 19.8 (10-20); Blood Urea Nitrogen 16 mg/dl (7-18); Calcium 9.2 mg/dl (8.5-10.1); Carbon Dioxide 31 mmol/L (21-32); Chloride 106 mmol/L (98-107); Creatinine Clr Calc Pharmacy 106.7 ml/min; Est GFR (African American) 90.9; Est GFR (Non-African American) 78.4; Glucose 137 mg/dl (70-99); Potassium 4.4 mmol/L (3.5-5.1); Sodium 142 mmol/L (136-145)
[2019-05-31 02:36] LABS: Troponin I < 0.015 ng/ml (0-0.045)
[2019-05-31] MEDS: HYDROCODONE/ACETAMINOPHEN 10/325 TAB PO PRN ×4 (03:09→22:33)
[2019-05-31] MEDS: ALBUT/IPRATROP 3MG/0.5MG NEB 3 ML VIAL NEB SCH ×5 (03:22→19:56)
[2019-05-31] MEDS: LEVOTHYROXINE SODIUM 50 MCG TABLET PO SCH (05:20)
[2019-05-31] MEDS: methylPREDNISolone 40 MG in SYRINGE 0 ML IV SCH ×3 (05:20→21:28)
[2019-05-31] MEDS: GABAPENTIN 300 MG CAP PO SCH ×3 (07:54→20:19)
[2019-05-31] MEDS: PANTOprazole 40 MG TAB PO SCH ×2 (07:54→20:20)
[2019-05-31] MEDS: clonazePAM 1 MG TAB PO SCH ×3 (07:54→20:12)
--- NOTE | 2019-05-31 19:28 | Hospitalist Progress Note ---
Date of Service May 31, 2019 Assessment & Plan (1) Acute respiratory failure with hypoxia: Present on admission with SOB associated with productive cough Oxygen on admission 87% Possible related to COPD exacerbation CXR showed cardiomegaly with mild volume overload. No other convincing evidence of acute cardiopulmonary disease. Negative for influenza pulmonary toilet with flutter valve and IS Continue oxygen supplement for now Was discharged on Symbicort on 01/22 but never started it because she cannot afford it and has not followed up with pulmonary Continue monitor closely (2) Chest pain: Atypical features related to cough Troponin x3 negative EKG showed no ischemic finding Stable (3) Syncope: likely vasovagal due to severe coughing, hypoxia CT head negative for any intracranial abnormality No focal neuro deficit Stable (4) Black stools: Hgb stable (5) Micheal's thyroiditis: continue levothyroxine (6) GERD (gastroesophageal reflux disease): continue PPI (7) DVT prophylaxis: SQ Lovenox CODE STATUS FULL CODE Disposition Will discharge once medically stable Subjective Pt was seen and examined Lying in bed with no distress Pt said that she continues to have SOB with minimal exertion She said that she is coughing phlegm now Denies any chest pain, palpitation and SOB Physical Exam Physical Exam: General- No acute distress Head- atraumatic Eyes- PERRL, EOMI, ENT- oropharynx clear Neck- supple, no JVD Lungs- +wheezing Heart- regular rhythm; no murmur Abdomen- normal bowel sounds, soft, nontender Extremities- no calf tenderness Neuro- alert, oriented x 3; PERRL, EOMI; no facial palsy; no dysarthria Skin- warm & dry Results & Data Vital Signs (Past 12 Hours) Vital Signs Temp Pulse Pulse Resp BP Pulse Ox 05/31/19 19:07 36.9 C 72 20 121/63 94 05/31/19 19:02 36.5 C 72 18 166/76 H 90 05/31/19 16:03 81 05/31/19 15:19 71 17 94 05/31/19 15:17 36.3 C L 101 H 22 142/60 H 94 05/31/19 12:06 36.6 C 80 18 121/68 93 05/31/19 11:14 78 16 99 05/31/19 07:28 36.6 C 75 18 126/76 95 05/31/19 07:24 72 18 95
[2019-05-31] MEDS ORDERED: guaiFENesin 200 MG TAB PO SCH (19:45)
[2019-05-31] MEDS: LEVOFLOXACIN/D5W 500 MG/100 ML BAG IV SCH (20:12)
[2019-05-31] MEDS: ENOXAPARIN INJ 40 MG/0.4 ML SYR SQ SCH (20:19)
[2019-05-31] MEDS: TRAZODONE HCL 100 MG TAB PO SCH (20:20)
[2019-06-01] MEDS ORDERED: SODIUM CHLORIDE 0.65% NA SOLN 45 ML (OCEAN) PRN (00:45)
[2019-06-01] MEDS: BUTALBITAL/ACETAMIN/CAFFEINE TAB PO PRN ×2 (04:01→16:51)
[2019-06-01] MEDS: HYDROCODONE/ACETAMINOPHEN 10/325 TAB PO PRN ×3 (05:40→19:18)
[2019-06-01] MEDS: methylPREDNISolone 40 MG in SYRINGE 0 ML IV SCH ×3 (06:04→21:03)
[2019-06-01] MEDS: LEVOTHYROXINE SODIUM 50 MCG TABLET PO SCH (06:13)
[2019-06-01] MEDS: guaiFENesin 200 MG TAB PO SCH ×3 (06:13→21:52)
[2019-06-01] MEDS: ALBUT/IPRATROP 3MG/0.5MG NEB 3 ML VIAL NEB SCH ×4 (07:04→19:41)
[2019-06-01] MEDS: GABAPENTIN 300 MG CAP PO SCH ×3 (07:57→20:58)
[2019-06-01] MEDS: PANTOprazole 40 MG TAB PO SCH ×2 (07:57→20:58)
[2019-06-01] MEDS: clonazePAM 1 MG TAB PO SCH ×3 (07:57→20:57)
--- NOTE | 2019-06-01 19:11 | Hospitalist Progress Note ---
Date of Service June 01, 2019 Assessment & Plan (1) Acute respiratory failure with hypoxia: Present on admission with SOB associated with productive cough Oxygen on admission 87% Possible related to COPD exacerbation CXR showed cardiomegaly with mild volume overload. No other convincing evidence of acute cardiopulmonary disease. Negative for influenza pulmonary toilet with flutter valve and IS Continue oxygen supplement for now Will taper solumedrol to BID Continue guaifenesin and levaquin Was discharged on Symbicort on 01/22 but never started it because she cannot afford it and has not followed up with pulmonary Continue monitor closely (2) Chest pain: Atypical features related to cough Troponin x3 negative EKG showed no ischemic finding Stable (3) Syncope: likely vasovagal due to severe coughing, hypoxia CT head negative for any intracranial abnormality No focal neuro deficit Stable (4) Black stools: Hgb stable (5) Micheal's thyroiditis: continue levothyroxine (6) GERD (gastroesophageal reflux disease): continue PPI (7) DVT prophylaxis: SQ Lovenox CODE STATUS FULL CODE Disposition Will discharge once medically stable Subjective Pt was seen and examined Lying in bed with no distress Pt said that her breathing slightly improves She continues requiring oxygen supplement She said that her cough is getting loose Denies any chest pain, palpitation and SOB Physical Exam Physical Exam: General- No acute distress Head- atraumatic Eyes- PERRL, EOMI, ENT- oropharynx clear Neck- supple, no JVD Lungs- +wheezing Heart- regular rhythm; no murmur Abdomen- normal bowel sounds, soft, nontender Extremities- no calf tenderness Neuro- alert, oriented x 3; PERRL, EOMI; no facial palsy; no dysarthria Skin- warm & dry Results & Data Vital Signs (Past 12 Hours) Vital Signs Temp Pulse Resp BP Pulse Ox 06/01/19 15:31 36.3 C L 76 20 173/92 H 94 06/01/19 15:12 82 19 94 06/01/19 11:18 36.5 C 72 18 176/80 H 90 06/01/19 07:08 70 18 94
[2019-06-01] MEDS: LEVOFLOXACIN/D5W 500 MG/100 ML BAG IV SCH (20:00)
[2019-06-01] MEDS: TRAZODONE HCL 100 MG TAB PO SCH (20:58)
[2019-06-01] MEDS: ENOXAPARIN INJ 40 MG/0.4 ML SYR SQ SCH (20:58)
[2019-06-01] MEDS: POLYETHYLENE (MIRALAX) 17 GM PACK PO PRN (21:52)
[2019-06-01] MEDS: DOCUSATE SODIUM/SENNA 50/8.6MG TAB PO SCH (21:52)
--- NOTE | 2019-06-01 23:39 | Hospitalist Progress Note ---
Date of Service June 01, 2019 Subjective Made aware by RN of uncontrolled blood pressure. SBP 140-170s since a.m. Cardiac rate 50s. Patient asymptomatic as per RN. AP Uncontrolled blood pressure Add lisinopril to current beta-anthony Rx Will relay to AM provider. Results & Data Vital Signs (Past 12 Hours) Vital Signs Temp Pulse Resp BP Pulse Ox 06/01/19 23:19 36.3 C L 52 L 20 170/74 H 95 06/01/19 19:45 79 16 94 06/01/19 19:12 37.0 C 84 17 176/98 H 88 L 06/01/19 15:31 36.3 C L 76 20 173/92 H 94 06/01/19 15:12 82 19 94
[2019-06-02] MEDS: BUTALBITAL/ACETAMIN/CAFFEINE TAB PO PRN ×2 (00:05→21:06)
[2019-06-02] MEDS: HYDROCODONE/ACETAMINOPHEN 10/325 TAB PO PRN ×3 (01:49→14:34)
[2019-06-02] MEDS: guaiFENesin 200 MG TAB PO SCH ×3 (05:48→22:01)
[2019-06-02] MEDS: LEVOTHYROXINE SODIUM 50 MCG TABLET PO SCH (05:48)
--- NOTE | 2019-06-02 06:48 | Emergency Department Note ---
Entered by Tammy Powell acting as a scribe for Manuel Morris MD History of Present Illness General Chief complaint: Shortness of Breath/Dyspnea Stated complaint: hard to breathe Time Seen by Provider: 05/30/19 12:44 Source: patient History of Present Illness Provider complaint: shortness of breath Onset (ago): week(s) 1 Location: chest Pain Consistency: + other (episode ) Maximum Pain Intensity: 9 Relieved By: not by medication (pain medication ) Associated symptoms: + chest pain, + cough, + headaches, + nausea/vomiting and + other (trouble urinating and passing bowel movements ) The patient is a 59 year old female who presents to the ED with complaints of shortness of breath that began 1 week ago. The patient states that she is unable to catch her breath. She states that she is constantly coughing, which is causing her chest pain. The patient states that she has a severe headache. She states that she has been able to keep food down because she has been vomiting for 2 days now. The patient states that she is not normally on oxygen at home. The patient states that the last time she took something for her symptoms was yesterday. The patient states that she takes medication for her racing heart. The patient states that she has a nebulizer which she takes daily. The patient states that she has been unable to urinate and has irregular bowel movements. The patient states that she had her flu shot this season. Home Medications Home Medications Medication Instructions Recorded Confirmed Type clonazepam 2 mg PO TID 01/31/19 05/30/19 History epinephrine [EpiPen] 0.3 mg IM DIRECTED PRN 01/31/19 05/30/19 History gabapentin 300 mg PO TID 01/31/19 05/30/19 History hydrocodone-acetaminophen 1 tab PO Q6H PRN 01/31/19 05/30/19 History levothyroxine 50 mcg PO DAILY 01/31/19 05/30/19 History omeprazole 40 mg PO BID 01/31/19 05/30/19 History trazodone 200 mg PO HS 01/31/19 05/30/19 History albuterol sulfate 1.25 mg INHALATION QID PRN 05/30/19 05/30/19 History arfpzoxurf-mzhgblzpgdtov-zejm 1 cap PO Q6H PRN 05/30/19 05/30/19 History [Fioricet] diltiazem HCl 180 mg PO DAILY 05/30/19 05/30/19 History budesonide-formoterol [Symbicort] 2 puffs INH BID 30 Days #10.2 gm 06/04/19 Rx guaifenesin 200 mg PO Q8 #15 tab 06/04/19 Rx lisinopril [Zestril] 5 mg PO HS 30 Days #30 tab 06/04/19 Rx prednisone 10 mg PO UD 7 Days #20 tab 06/04/19 Rx Allergies Allergy/AdvReac Type Severity Reaction Status Date / Time bee venom protein (honey bee) Allergy Severe ANAPHYLAXIS Verified 05/30/19 14:35 codeine Allergy Severe DIFFICULTY Verified 05/30/19 14:35 BREATHING ibuprofen Allergy Unknown swelling Verified 05/30/19 14:35 Past Med/Surg History Medical History GERD (gastroesophageal reflux disease) (Chronic) Rib deformity (Chronic) s/p surgery History of hysterectomy (Chronic) Neuropathy (Chronic) Micheal's thyroiditis (Chronic) Atrial fibrillation (Resolved) Lyme disease (Resolved) Heart attack (Chronic) per patient, "in my 20s due to Lyme disease" COPD (chronic obstructive pulmonary disease) (Chronic) Bee sting allergy (Chronic) Surgical History History of tonsillectomy (Chronic) H/O neck surgery (Chronic) History of appendectomy (Chronic) History of surgery (Chronic) history of multiple leg surgeries Family History Mother Lung cancer Social History Preferred Language: Sammarinese Communication Ability: Effective Ice Carver Required: No Beliefs That Will Affect Care: None marital status: / Current Living Situation: Significant Other Other Information That Helps Us Care for You: No Feels Safe at Home: Yes Safety Concerns: Feels Safe At This Time Smoking Status: Current every day smoker Tobacco Type: cigarettes ; Do You Dip or Chew Tobacco: No ; Second Hand Exposure: Yes ; Tobacco Cessation Education Requested by Patient: Yes Hx Alcohol Use: Yes Alcohol type: beer Alcohol Intake Frequency: Holidays/Special Occasions Hx Substance Use: No Review of Systems See HPI for pertinent positives & negatives. and A total of 10 systems reviewed and were otherwise negative Physical Exam Vital Signs Vital Signs - 24 hr 05/30/19 12:18 05/30/19 12:44 05/30/19 12:46 Temperature 36.9 C Temperature Source Oral Sepsis Recent Fever Within 48 Hours No Sepsis New/Unexplained Change in Mental Status No Sepsis Action Taken by Nursing No Action Required Oxygen Flow Rate - Titration 2 2 Pulse Oximetry Post Tiitration 95 95 Pulse Rate 78 Pulse Rate [Finger] Respiratory Rate 20 Respiratory Effort / Characteristics Blood Pressure 140/84 Blood Pressure [Right Arm] Blood Pressure Mean 102 Blood Pressure Mean [Right Arm] Pulse Oximetry 87 L 88 L 95 Oxygen Delivery Method Room Air Room Air Nasal Cannula Oxygen Flow Rate 2 05/30/19 13:19 05/30/19 15:10 05/30/19 15:14 Temperature Temperature Source Sepsis Recent Fever Within 48 Hours Sepsis New/Unexplained Change in Mental Status Sepsis Action Taken by Nursing Oxygen Flow Rate - Titration Pulse Oximetry Post Tiitration Pulse Rate Pulse Rate [Finger] 63 65 68 Respiratory Rate 16 20 16 Respiratory Effort / Characteristics Non-Labored Spontaneous Non-Labored Spontaneous Blood Pressure Blood Pressure [Right Arm] 147/86 H Blood Pressure Mean Blood Pressure Mean [Right Arm] 106 Pulse Oximetry 94 92 93 Oxygen Delivery Method Nasal Cannula Nasal Cannula Nasal Cannula Oxygen Flow Rate 2 3 3 GENERAL: Awake, alert, well-appearing, in no acute distress HENT: Normocephalic, atraumatic. Oropharynx unremarkable. EYES: Normal conjunctiva. Sclera non-icteric. NECK: Supple. No nuchal rigidity. FROM. No JVD. RESPIRATORY: Wheezes bilaterally. CARDIAC: Regular rate, normal rhythm. Extremities warm and well perfused. Pulses equal. ABDOMEN: Soft, non-distended. No tenderness to palpation. No rebound or guarding. No masses. RECTAL: Deferred. MUSCULOSKELETAL: Chest examination reveals no tenderness. The back is symmetrical on inspection without obvious abnormality. There is no CVA tenderness to palpation. No joint edema. LOWER EXTREMITIES: Calves are equal size bilaterally and non-tender. No edema. No discoloration. NEURO: Normal sensorium. No sensory or motor deficits noted. SKIN: No rash or jaundice noted. Course 1247: Past medical records reviewed. The patient was evaluated in room A2. A complete history and physical exam was performed. 1320: I reevaluated the patient at this time and she is resting comfortably. I discussed the test results and treatment plan with the patient. She verbally agreed and understood. Administered Medications Discontinued Medications Acetaminophen (Tylenol) 650 mg PO Q4H PRN PRN Reason: pain/fever Stop: 06/29/19 19:14 Last Admin: 06/02/19 05:54 Dose: 650 mg Documented by: [id number] Acetaminophen (Tylenol) Confirm Administered Dose 650 mg .ROUTE .STK-MED ONE Stop: 05/30/19 19:21 Last Admin: 05/30/19 19:22 Dose: 650 mg Documented by: [id number] Acetaminophen/Butalbital/Caffeine (Fioricet) 1 tab PO Q6H PRN PRN Reason: Headache Stop: 06/29/19 20:13 Last Admin: 06/04/19 05:44 Dose: 1 tab Documented by: [id number] Admin: 06/03/19 20:02 Dose: 1 tab Documented by: [id number] Admin: 06/02/19 21:06 Dose: 1 tab Documented by: [id number] Admin: 06/02/19 00:05 Dose: 1 tab Documented by: [id number] Admin: 06/01/19 16:51 Dose: 1 tab Documented by: [id number] Admin: 06/01/19 04:01 Dose: 1 tab Documented by: [id number] Admin: 05/31/19 00:00 Dose: 1 tab Documented by: [id number] Hydrocodone Bitart/Acetaminophen ([place] 10/325) 1 tab PO Q6H PRN PRN Reason: Pain Stop: 06/13/19 19:14 Last Admin: 06/03/19 23:19 Dose: 1 tab Documented by: [id number] Admin: 06/03/19 15:58 Dose: 1 tab Documented by: [id number] Admin: 06/03/19 05:07 Dose: 1 tab Documented by: [id number] Admin: 06/02/19 14:34 Dose: 1 tab Documented by: [id number] Admin: 06/02/19 08:41 Dose: 1 tab Documented by: [id number] Admin: 06/02/19 01:49 Dose: 1 tab Documented by: [id number] Admin: 06/01/19 19:18 Dose: 1 tab Documented by: [id number] Admin: 06/01/19 13:09 Dose: 1 tab Documented by: [id number] Admin: 06/01/19 05:40 Dose: 1 tab Documented by: [id number] Admin: 05/31/19 22:33 Dose: 1 tab Documented by: [id number] Admin: 05/31/19 16:17 Dose: 1 tab Documented by: [id number] Admin: 05/31/19 10:17 Dose: 1 tab Documented by: [id number] Admin: 05/31/19 03:09 Dose: 1 tab Documented by: [id number] Albuterol (Duoneb) 3 ml NEB QIDR RENETTA Stop: 06/29/19 19:14 Last Admin: 06/04/19 14:47 Dose: 3 ml Documented by: [id number] Admin: 06/04/19 11:21 Dose: 3 ml Documented by: [id number] Admin: 06/04/19 07:08 Dose: 3 ml Documented by: [id number] Admin: 06/03/19 19:18 Dose: 3 ml Documented by: [id number] Admin: 06/03/19 14:54 Dose: 3 ml Documented by: [id number] Admin: 06/03/19 10:08 Dose: 3 ml Documented by: [id number] Admin: 06/03/19 07:28 Dose: 3 ml Documented by: [id number] Admin: 06/02/19 19:46 Dose: 3 ml Documented by: [id number] Admin: 06/02/19 15:34 Dose: 3 ml Documented by: [id number] Admin: 06/02/19 11:07 Dose: 3 ml Documented by: [id number] Admin: 06/02/19 07:11 Dose: 3 ml Documented by: [id number] Admin: 06/01/19 19:41 Dose: 3 ml Documented by: [id number] Admin: 06/01/19 15:11 Dose: 3 ml Documented by: [id number] Admin: 06/01/19 10:53 Dose: 3 ml Documented by: [id number] Admin: 06/01/19 07:04 Dose: 3 ml Documented by: [id number] Admin: 05/31/19 19:56 Dose: 3 ml Documented by: [id number] Admin: 05/31/19 15:19 Dose: 3 ml Documented by: [id number] Admin: 05/31/19 11:11 Dose: 3 ml Documented by: [id number] Admin: 05/31/19 07:24 Dose: 3 ml Documented by: [id number] Admin: 05/31/19 03:22 Dose: 3 ml Documented by: [id number] Admin: 05/30/19 21:03 Dose: 3 ml Documented by: [id number] Clonazepam (Klonopin) 2 mg PO TID RENETTA Stop: 06/29/19 20:59 Last Admin: 06/04/19 14:14 Dose: 2 mg Documented by: [id number] Admin: 06/04/19 08:33 Dose: 2 mg Documented by: [id number] Admin: 06/03/19 20:06 Dose: 2 mg Documented by: [id number] Admin: 06/03/19 14:18 Dose: 2 mg Documented by: [id number] Admin: 06/03/19 07:46 Dose: 2 mg Documented by: [id number] Admin: 06/02/19 22:01 Dose: 2 mg Documented by: [id number] Admin: 06/02/19 14:36 Dose: 2 mg Documented by: [id number] Admin: 06/02/19 08:41 Dose: 2 mg Documented by: [id number] Admin: 06/01/19 20:57 Dose: 2 mg Documented by: [id number] Admin: 06/01/19 13:09 Dose: 2 mg Documented by: [id number] Admin: 06/01/19 07:57 Dose: 2 mg Documented by: [id number] Admin: 05/31/19 20:12 Dose: 2 mg Documented by: [id number] Admin: 05/31/19 13:39 Dose: 2 mg Documented by: [id number] Admin: 05/31/19 07:54 Dose: 2 mg Documented by: [id number] Admin: 05/30/19 21:23 Dose: 2 mg Documented by: [id number] Diltiazem HCl (Dilacor Xr) 180 mg PO DAILY RENETTA Stop: 06/30/19 08:59 Last Admin: 06/04/19 08:31 Dose: 180 mg Documented by: [id number] Admin: 06/03/19 07:48 Dose: 180 mg Documented by: [id number] Admin: 06/02/19 08:42 Dose: 180 mg Documented by: [id number] Admin: 06/01/19 07:57 Dose: 180 mg Documented by: [id number] Admin: 05/31/19 07:54 Dose: 180 mg Documented by: [id number] Enoxaparin Sodium (Lovenox) 40 mg SQ Q24H RENETTA Stop: 06/29/19 20:59 Last Admin: 06/03/19 20:02 Dose: 40 mg Documented by: [id number] Admin: 06/02/19 20:35 Dose: 40 mg Documented by: [id number] Admin: 06/01/19 20:58 Dose: 40 mg Documented by: [id number] Admin: 05/31/19 20:19 Dose: 40 mg Documented by: [id number] Admin: 05/30/19 21:47 Dose: 40 mg Documented by: [id number] Gabapentin (Neurontin) 300 mg PO TID RENETTA Stop: 06/29/19 20:59 Last Admin: 06/04/19 14:14 Dose: 300 mg Documented by: [id number] Admin: 06/04/19 08:31 Dose: 300 mg Documented by: [id number] Admin: 06/03/19 20:04 Dose: 300 mg Documented by: [id number] Admin: 06/03/19 14:18 Dose: 300 mg Documented by: [id number] Admin: 06/03/19 07:47 Dose: 300 mg Documented by: [id number] Admin: 06/02/19 22:01 Dose: 300 mg Documented by: [id number] Admin: 06/02/19 14:34 Dose: 300 mg Documented by: [id number] Admin: 06/02/19 08:42 Dose: 300 mg Documented by: [id number] Admin: 06/01/19 20:58 Dose: 300 mg Documented by: [id number] Admin: 06/01/19 13:09 Dose: 300 mg Documented by: [id number] Admin: 06/01/19 07:57 Dose: 300 mg Documented by: [id number] Admin: 05/31/19 20:19 Dose: 300 mg Documented by: [id number] Admin: 05/31/19 13:39 Dose: 300 mg Documented by: [id number] Admin: 05/31/19 07:54 Dose: 300 mg Documented by: [id number] Admin: 05/30/19 21:34 Dose: 300 mg Documented by: [id number] Guaifenesin (Organidin Nr) 200 mg PO Q8 RENETTA Stop: 06/30/19 19:44 Last Admin: 06/04/19 14:14 Dose: 200 mg Documented by: [id number] Admin: 06/04/19 05:43 Dose: 200 mg Documented by: [id number] Admin: 06/03/19 20:03 Dose: 200 mg Documented by: [id number] Admin: 06/03/19 14:18 Dose: 200 mg Documented by: [id number] Admin: 06/03/19 05:07 Dose: 200 mg Documented by: [id number] Admin: 06/02/19 22:01 Dose: 200 mg Documented by: [id number] Admin: 06/02/19 14:34 Dose: 200 mg Documented by: [id number] Admin: 06/02/19 05:48 Dose: 200 mg Documented by: [id number] Admin: 06/01/19 21:52 Dose: 200 mg Documented by: [id number] Admin: 06/01/19 13:09 Dose: 200 mg Documented by: [id number] Admin: 06/01/19 06:13 Dose: 200 mg Documented by: [id number] Methylprednisolone 60 mg/ (Syringe) 1.96 mls @ 1.5 mls/min IV NOW STA Stop: 05/30/19 12:55 Last Admin: 05/30/19 13:58 Dose: Not Given Documented by: [id number] Acetaminophen (Ofirmev) 1,000 mg in 100 mls @ 400 mls/hr IV NOW STA Stop: 05/30/19 13:08 Last Infusion: 05/30/19 14:13 Dose: 0 mls/hr Documented by: [id number] Admin: 05/30/19 13:58 Dose: 400 mls/hr Documented by: [id number] Acetaminophen (Ofirmev) 1,000 mg in 100 mls @ 400 mls/hr IV NOW STA Stop: 05/30/19 17:03 Last Admin: 05/30/19 18:03 Dose: Not Given Documented by: [id number] Magnesium Sulfate/Dextrose (Magnesium Sulfate / D5w) 1 gm in 100 mls @ 100 mls/hr IV ONE ONE Stop: 05/30/19 17:48 Last Infusion: 05/30/19 19:36 Dose: 0 mls/hr Documented by: [id number] Admin: 05/30/19 18:03 Dose: 100 mls/hr Documented by: [id number] Levofloxacin/Dextrose (Levaquin/D5w) 500 mg in 100 mls @ 100 mls/hr IV Q24H RENETTA Stop: 06/06/19 19:59 Last Infusion: 06/01/19 21:53 Dose: 0 mls/hr Documented by: [id number] Admin: 06/01/19 20:00 Dose: 100 mls/hr Documented by: [id number] Infusion: 05/31/19 21:34 Dose: 0 mls/hr Documented by: [id number] Admin: 05/31/19 20:12 Dose: 100 mls/hr Documented by: [id number] Infusion: 05/30/19 22:42 Dose: 0 mls/hr Documented by: [id number] Admin: 05/30/19 21:30 Dose: 100 mls/hr Documented by: [id number] Methylprednisolone 40 mg/ (Syringe) 0.64 mls @ 1.5 mls/min IV Q8H RENETTA Stop: 06/29/19 21:59 Last Admin: 06/01/19 13:09 Dose: 1.5 mls/min Documented by: [id number] Admin: 06/01/19 06:04 Dose: 1.5 mls/min Documented by: [id number] Admin: 05/31/19 21:28 Dose: 1.5 mls/min Documented by: [id number] Admin: 05/31/19 13:40 Dose: 1.5 mls/min Documented by: [id number] Admin: 05/31/19 05:20 Dose: 1.5 mls/min Documented by: [id number] Admin: 05/30/19 21:32 Dose: 1.5 mls/min Documented by: [id number] Sodium Chloride (Nss 1000ml) 1,000 mls @ 999 mls/hr IV .Q1H1M ONE Stop: 05/30/19 20:21 Last Infusion: 05/30/19 21:08 Dose: 0 mls/hr Documented by: [id number] Admin: 05/30/19 19:55 Dose: 999 mls/hr Documented by: [id number] Methylprednisolone 40 mg/ (Syringe) 0.64 mls @ 1.5 mls/min IV BID RENETTA Stop: 06/03/19 23:00 Last Admin: 06/03/19 20:04 Dose: 1.5 mls/min Documented by: [id number] Admin: 06/03/19 07:49 Dose: 1.5 mls/min Documented by: [id number] Admin: 06/02/19 20:35 Dose: 1.5 mls/min Documented by: [id number] Admin: 06/02/19 08:41 Dose: 1.5 mls/min Documented by: [id number] Admin: 06/01/19 21:03 Dose: 1.5 mls/min Documented by: [id number] Levalbuterol HCl (Xopenex 1.25mg/3ml Neb) 1.25 mg NEB NOW STA Stop: 05/30/19 12:53 Last Admin: 05/30/19 13:17 Dose: 1.25 mg Documented by: [id number] Levalbuterol HCl (Xopenex 1.25mg/3ml Neb) 1.25 mg NEB NOW STA Stop: 05/30/19 15:02 Last Admin: 05/30/19 15:13 Dose: 1.25 mg Documented by: [id number] Levalbuterol HCl (Xopenex 1.25mg/3ml Neb) 1.25 mg NEB NOW STA Stop: 05/30/19 16:50 Last Admin: 05/30/19 17:19 Dose: 1.25 mg Documented by: [id number] Levofloxacin (Levaquin) 500 mg PO DAILY@1100 RENETTA; Protocol Stop: 06/05/19 11:01 Last Admin: 06/04/19 11:17 Dose: 500 mg Documented by: [id number] Admin: 06/03/19 11:19 Dose: 500 mg Documented by: [id number] Admin: 06/02/19 15:32 Dose: 500 mg Documented by: [id number] [facility] Stop: 06/30/19 06:29 Last Admin: 06/04/19 05:43 Dose: 50 mcg Documented by: [id number] Admin: 06/03/19 05:07 Dose: 50 mcg Documented by: [id number] Admin: 06/02/19 05:48 Dose: 50 mcg Documented by: [id number] Admin: 06/01/19 06:13 Dose: 50 mcg Documented by: [id number] Admin: 05/31/19 05:20 Dose: 50 mcg Documented by: [id number] Lisinopril (Zestril) 2.5 mg PO [facility] Stop: 07/01/19 23:39 Last Admin: 06/02/19 20:35 Dose: 2.5 mg Documented by: [id number] Admin: 06/02/19 00:05 Dose: 2.5 mg Documented by: [id number] Lisinopril (Zestril) 5 mg PO HS [facility] Stop: 07/03/19 20:59 Last Admin: 06/03/19 20:06 Dose: 5 mg Documented by: [id number] Methylprednisolone (Solumedrol) Confirm Administered Dose 125 mg .ROUTE .STK-MED ONE Stop: 05/30/19 13:43 Last Admin: 05/30/19 13:57 Dose: 60 mg Documented by: [id number] Pantoprazole Sodium (Protonix) 40 mg PO BID RENETTA Stop: 06/29/19 20:59 Last Admin: 06/04/19 05:43 Dose: 40 mg Documented by: [id number] Admin: 06/03/19 20:05 Dose: 40 mg Documented by: [id number] Admin: 06/03/19 07:48 Dose: 40 mg Documented by: [id number] Admin: 06/02/19 20:35 Dose: 40 mg Documented by: [id number] Admin: 06/02/19 08:42 Dose: 40 mg Documented by: [id number] Admin: 06/01/19 20:58 Dose: 40 mg Documented by: [id number] Admin: 06/01/19 07:57 Dose: 40 mg Documented by: [id number] Admin: 05/31/19 20:20 Dose: 40 mg Documented by: [id number] Admin: 05/31/19 07:54 Dose: 40 mg Documented by: [id number] Admin: 05/30/19 21:34 Dose: 40 mg Documented by: [id number] Polyethylene Glycol (Miralax Powder Packet) 17 gm PO DAILY PRN PRN Reason: Constipation Stop: 07/01/19 21:26 Last Admin: 06/03/19 07:46 Dose: 17 gm Documented by: [id number] Admin: 06/02/19 08:56 Dose: 17 gm Documented by: [id number] Admin: 06/01/19 21:52 Dose: 17 gm Documented by: [id number] Prednisone (Prednisone) 40 mg PO DAILY [facility] Stop: 07/04/19 08:59 Last Admin: 06/04/19 08:33 Dose: 40 mg Documented by: [id number] Senna/Docusate Sodium (Senokot S) 1 tab PO QAM [facility] Stop: 07/01/19 21:29 Last Admin: 06/04/19 08:32 Dose: 1 tab Documented by: [id number] Admin: 06/03/19 07:46 Dose: 1 tab Documented by: [id number] Admin: 06/02/19 08:42 Dose: 1 tab Documented by: [id number] Admin: 06/01/19 21:52 Dose: 1 tab Documented by: [id number] Trazodone HCl (Desyrel) 200 mg PO HS [place] Stop: 06/29/19 20:59 Last Admin: 06/03/19 20:04 Dose: 200 mg Documented by: [id number] Admin: 06/02/19 21:58 Dose: 200 mg Documented by: [id number] Admin: 06/01/19 20:58 Dose: 200 mg Documented by: [id number] Admin: 05/31/19 20:20 Dose: 200 mg Documented by: [id number] Admin: 05/30/19 21:33 Dose: 200 mg Documented by: [id number] Medical Decision Making Differential Diagnosis Differential diagnosis: Etiologies such as infections, reactive airway disease, COPD, pneumonia, pleural effusion, pulmonary edema, ARDS, pneumothorax, CHF, cardiac ischemia, cardiac tamponade, dysrhythmia, anemia, pulmonary embolism, musculoskeletal, gastrointestinal process, as well as others were entertained. Medical Records Attestation: I reviewed the patient's medical records. Home Medications Current Medication List: was personally reviewed by me Laboratory Data Attestation: I reviewed the patient's lab results. Result diagrams: 05/31/19 01:53 06/03/19 09:17 Lab Results 05/30/19 05/30/19 05/30/19 Range/Units 13:47 14:00 14:00 WBC 8.45 (4.8-10.8) K/uL RBC 4.60 (4.2-5.4) M/uL Hgb 14.8 (12.0-16.0) g/dL Hct 44.8 (37-47) % MCV 97.4 (80-100) fL MCH 32.2 (25-34) pg MCHC 33.0 (32-36) g/dL RDW Std Deviation 46.9 H (36.4-46.3) fL RDW Coeff of Rajiv 13.2 (11.5-14.5) % Plt Count 166 (130-400) K/uL MPV 8.7 (7.4-10.4) fL Immature Gran % (Auto) 0.2 % Neut % (Auto) 54.5 % Lymph % (Auto) 36.2 % [place] % (Auto) 7.5 % Eos % (Auto) 1.2 % Baso % (Auto) 0.4 % Immature Gran # (Auto) 0.02 (0.00-0.02) K/uL Neut # (Auto) 4.61 (1.4-6.5) K/uL Lymph # (Auto) 3.06 (1.2-3.4) K/uL [place] # (Auto) 0.63 H (0.11-0.59) K/uL Eos # (Auto) 0.10 (0-0.5) K/uL Baso # (Auto) 0.03 (0-0.2) K/uL Sodium 141 (136-145) mmol/L Potassium 4.3 (3.5-5.1) mmol/L Chloride 104 (98-107) mmol/L Carbon Dioxide 31 (21-32) mmol/L Anion Gap 6.0 (3-11) BUN 20 H (7-18) mg/dl Creatinine 0.94 (0.6-1.2) mg/dl Est Cr Clr Drug Dosing Not Reportable Est GFR ( Amer) 75.9 Est GFR (Non-Af Amer) 65.5 BUN/Creatinine Ratio 21.3 H (10-20) Glucose 85 (70-99) mg/dl Calcium 9.2 (8.5-10.1) mg/dl Total Bilirubin 0.4 (0.2-1) mg/dl AST 8 L (15-37) U/L ALT 16 (12-78) U/L Alkaline Phosphatase 106 (45-117) U/L Total Creatine Kinase 30 (26-192) U/L CK-MB (CK-2) < 1.0 (0.5-3.6) ng/ml CK/CKMB % Calc TNP Troponin I < 0.015 (0-0.045) ng/ml NT-Pro-B Natriuret Pep 35 (0-900) pg/ml Total Protein 7.2 (6.4-8.2) gm/dl Albumin 3.6 (3.4-5.0) gm/dl Globulin 3.6 (2.5-4.0) gm/dl Albumin/Globulin Ratio 1.0 (0.9-2) Lipase 90 (73-393) U/L Influenza Type A Ag Neg for Influ A (Neg) Influenza Type A (PCR) Cancelled Influenza Type B Ag Neg for Influ B (Neg) Influenza Type B (PCR) Cancelled Imaging Data Radiologist's Impression: Radiology results as stated below per my review and the radiologist's interpretation: XR chest 1V portable CLINICAL HISTORY: 59 years-old Female presenting with Chest Pain. TECHNIQUE: Portable upright AP view of the chest was obtained. COMPARISON: 01/31/2019. FINDINGS: Atherosclerosis of the aortic arch. Cardiac silhouette enlarged. Pulmonary vascular prominence is increased from prior. No focal opacity. No large effusion or pneumothorax. Degenerative changes of the thoracic spine. Cervical metallic fusion hardware. Upper abdomen normal. IMPRESSION: 1. Cardiomegaly with mild volume overload. No other convincing evidence of acute cardiopulmonary disease. Electronically signed by: Joshua Boyd M.D. 05/30/2019 1:15 PM ECG Data Attestation: I personally reviewed and interpreted this ECG as follows: Indication: SOB/dyspnea Rate (beats per minute): 72 Rhythm: normal sinus Findings: + other (Normal EKG); no ST depression, no ST elevation and no acute ischemic change Blood Pressure Blood Pressure Findings: Elevated blood pressure Blood Pressure Disposition: Referred to patients primary care provider MDM Narrative This is a 59-year-old female who presents emergency department complaining of shortness of breath. Patient is not normally on oxygen at home. She was given an hour-long breathing treatment here in the emergency department. Her glucose was found to be elevated on her laboratory work. She is slightly dehydrated with her BUN being elevated. She was given Solu-Medrol here in the emergency d epartment. Because the patient was requiring oxygen I did discuss the case with the hospitalist service who agreed to admit the patient. Patient was in agreement with the treatment plan. Impression & Plan COPD (chronic obstructive pulmonary disease), Acute hyperglycemia, Acute dehydration Discharge Plan Visit Data *Final* Discharge Date/Time: 05/30/19 18:40 Chief Complaint: Shortness of Breath/Dyspnea Stated Complaint: hard to breathe ED Provider: Manuel Morris Discharge Problem: COPD (chronic obstructive pulmonary disease), Acute hyperglycemia, Acute dehydration Patient Disposition: Admitted As Inpatient Discharge Instructions Interventions: ED Discharge Assessment Last Done: 05/30/19 18:40 The scribe's documentation has been prepared under my direction and personally reviewed by me in its entirety. I confirm that the note above accurately reflects all work, treatment, procedures, and medical decision making performed by me.
[2019-06-02] MEDS: ALBUT/IPRATROP 3MG/0.5MG NEB 3 ML VIAL NEB SCH ×4 (07:11→19:46)
[2019-06-02] MEDS: methylPREDNISolone 40 MG in SYRINGE 0 ML IV SCH ×2 (08:41→20:35)
[2019-06-02] MEDS: clonazePAM 1 MG TAB PO SCH ×3 (08:41→22:01)
[2019-06-02] MEDS: PANTOprazole 40 MG TAB PO SCH ×2 (08:42→20:35)
[2019-06-02] MEDS: DOCUSATE SODIUM/SENNA 50/8.6MG TAB PO SCH (08:42)
[2019-06-02] MEDS: GABAPENTIN 300 MG CAP PO SCH ×3 (08:42→22:01)
[2019-06-02] MEDS: POLYETHYLENE (MIRALAX) 17 GM PACK PO PRN (08:56)
[2019-06-02] MEDS: levoFLOXacin 500 MG TAB PO SCH (15:32)
--- NOTE | 2019-06-02 17:32 | Hospitalist Progress Note ---
Date of Service June 02, 2019 Assessment & Plan (1) Acute respiratory failure with hypoxia: Present on admission with SOB associated with productive cough Oxygen on admission 87% Possible related to COPD exacerbation CXR showed cardiomegaly with mild volume overload. No other convincing evidence of acute cardiopulmonary disease. Negative for influenza pulmonary toilet with flutter valve and IS Continue oxygen supplement for now Continue solumedrol to BID Continue guaifenesin and levaquin Was discharged on Symbicort on 01/22 but never started it because she cannot afford it and has not followed up with pulmonary Spoke to ed case manager to check if she can get any assistance to get inhaler (she said that she cannot afford any inhaler) Continue monitor closely (2) Chest pain: Atypical features related to cough Troponin x3 negative EKG showed no ischemic finding Stable (3) Syncope: likely vasovagal due to severe coughing, hypoxia CT head negative for any intracranial abnormality No focal neuro deficit Stable (4) Black stools: Hgb stable (5) Micheal's thyroiditis: continue levothyroxine (6) GERD (gastroesophageal reflux disease): continue PPI (7) DVT prophylaxis: SQ Lovenox CODE STATUS FULL CODE Disposition Will discharge once medically stable Subjective Pt was seen and examined Lying in bed with no distress Pt said that she continues to have SOB with minimal exertion She said that she feels a little better at rest Denies any chest pain, fever and palpitation Physical Exam Physical Exam: General- No acute distress Head- atraumatic Eyes- PERRL, EOMI, ENT- oropharynx clear Neck- supple, no JVD Lungs- +wheezing Heart- regular rhythm; no murmur Abdomen- normal bowel sounds, soft, nontender Extremities- no calf tenderness Neuro- alert, oriented x 3; PERRL, EOMI; no facial palsy; no dysarthria Skin- warm & dry Results & Data Vital Signs (Past 12 Hours) Vital Signs Temp Pulse Resp BP Pulse Ox 06/02/19 15:34 70 16 91 06/02/19 15:20 36.2 C L 72 19 145/87 H 88 L 06/02/19 11:07 78 20 94 06/02/19 11:00 36.7 C 69 20 129/76 97 06/02/19 07:13 77 16 98 06/02/19 07:00 36.8 C 78 18 145/79 H 97
[2019-06-02] MEDS: ENOXAPARIN INJ 40 MG/0.4 ML SYR SQ SCH (20:35)
[2019-06-02] MEDS: TRAZODONE HCL 100 MG TAB PO SCH (21:58)
[2019-06-03] MEDS: LEVOTHYROXINE SODIUM 50 MCG TABLET PO SCH (05:07)
[2019-06-03] MEDS: HYDROCODONE/ACETAMINOPHEN 10/325 TAB PO PRN ×3 (05:07→23:19)
[2019-06-03] MEDS: guaiFENesin 200 MG TAB PO SCH ×3 (05:07→20:03)
[2019-06-03] MEDS: ALBUT/IPRATROP 3MG/0.5MG NEB 3 ML VIAL NEB SCH ×4 (07:28→19:18)
[2019-06-03] MEDS: POLYETHYLENE (MIRALAX) 17 GM PACK PO PRN (07:46)
[2019-06-03] MEDS: clonazePAM 1 MG TAB PO SCH ×3 (07:46→20:06)
[2019-06-03] MEDS: DOCUSATE SODIUM/SENNA 50/8.6MG TAB PO SCH (07:46)
[2019-06-03] MEDS: GABAPENTIN 300 MG CAP PO SCH ×3 (07:47→20:04)
[2019-06-03] MEDS: PANTOprazole 40 MG TAB PO SCH ×2 (07:48→20:05)
[2019-06-03] MEDS: methylPREDNISolone 40 MG in SYRINGE 0 ML IV SCH ×2 (07:49→20:04)
[2019-06-03 09:59] LABS: BUN Creatinine Ratio 26.5 (10-20); Calcium 9.4 mg/dl (8.5-10.1); Creatinine Clr Calc Pharmacy 82.5 ml/min; Est GFR (African American) 66.4; Est GFR (Non-African American) 57.3; Potassium 3.9 mmol/L (3.5-5.1)
[2019-06-03] MEDS: levoFLOXacin 500 MG TAB PO SCH (11:19)
--- NOTE | 2019-06-03 11:25 | Hospitalist Progress Note ---
Date of Service June 03, 2019 Assessment & Plan (1) Acute respiratory failure with hypoxia: Present on admission with SOB associated with productive cough Oxygen on admission 87% Possible related to COPD exacerbation CXR showed cardiomegaly with mild volume overload. No other convincing evidence of acute cardiopulmonary disease. Negative for influenza pulmonary toilet with flutter valve and IS Continue oxygen supplement for now Continue solumedrol to BID and neb treatment Continue guaifenesin and levaquin Was discharged on Symbicort on 01/22 but never started it because she cannot afford it and has not followed up with pulmonary Spoke to case resolution specialist to check if she can get any assistance to get inhaler (she said that she cannot afford any inhaler) Continue monitor closely (2) Chest pain: Atypical features related to cough Troponin x3 negative Repeat troponin this morning negative Repeat EKG this morning showed no ischemic finding Stable (3) Syncope: likely vasovagal due to severe coughing, hypoxia CT head negative for any intracranial abnormality No focal neuro deficit Stable (4) Black stools: Hgb stable (5) Micheal's thyroiditis: continue levothyroxine (6) GERD (gastroesophageal reflux disease): continue PPI (7) DVT prophylaxis: SQ Lovenox CODE STATUS FULL CODE Disposition Will discharge once medically stable Subjective Pt was seen and examined Lying in bed with no distress Pt said that she was fine this morning Then she developed chest pressure like Pt said that her breathing was much better this morning She said that she continues to have SOB Physical Exam Physical Exam: General- No acute distress Head- atraumatic Eyes- PERRL, EOMI, ENT- oropharynx clear Neck- supple, no JVD Lungs- +wheezing Heart- regular rhythm; no murmur Abdomen- normal bowel sounds, soft, nontender Extremities- no calf tenderness Neuro- alert, oriented x 3; PERRL, EOMI; no facial palsy; no dysarthria Skin- warm & dry Results & Data Vital Signs (Past 12 Hours) Vital Signs Temp Pulse Pulse Resp BP BP Pulse Ox 06/03/19 10:09 63 20 94 06/03/19 09:43 74 153/77 H 96 06/03/19 08:00 64 06/03/19 07:30 73 18 94 06/03/19 06:49 36.7 C 70 18 161/90 H 92 06/03/19 03:55 36.5 C 81 16 144/82 H 96
[2019-06-03] MEDS: BUTALBITAL/ACETAMIN/CAFFEINE TAB PO PRN (20:02)
[2019-06-03] MEDS: ENOXAPARIN INJ 40 MG/0.4 ML SYR SQ SCH (20:02)
[2019-06-03] MEDS: TRAZODONE HCL 100 MG TAB PO SCH (20:04)
[2019-06-03] MEDS ORDERED: lisinopriL 5 MG TAB PO SCH (21:00)
[2019-06-04] MEDS: PANTOprazole 40 MG TAB PO SCH (05:43)
[2019-06-04] MEDS: guaiFENesin 200 MG TAB PO SCH ×2 (05:43→14:14)
[2019-06-04] MEDS: LEVOTHYROXINE SODIUM 50 MCG TABLET PO SCH (05:43)
[2019-06-04] MEDS: BUTALBITAL/ACETAMIN/CAFFEINE TAB PO PRN (05:44)
[2019-06-04] MEDS: ALBUT/IPRATROP 3MG/0.5MG NEB 3 ML VIAL NEB SCH ×3 (07:08→14:47)
[2019-06-04] MEDS: GABAPENTIN 300 MG CAP PO SCH ×2 (08:31→14:14)
[2019-06-04] MEDS: DOCUSATE SODIUM/SENNA 50/8.6MG TAB PO SCH (08:32)
[2019-06-04] MEDS: clonazePAM 1 MG TAB PO SCH ×2 (08:33→14:14)
[2019-06-04] MEDS ORDERED: predniSONE 20 MG TAB PO SCH (09:00)
[2019-06-04] MEDS: levoFLOXacin 500 MG TAB PO SCH (11:17)
--- NOTE | 2019-06-04 15:33 | Hospitalist Progress Note ---
Date of Service June 04, 2019 Assessment & Plan (1) Acute respiratory failure with hypoxia: Present on admission with SOB associated with productive cough Oxygen on admission 87% Possible related to COPD exacerbation CXR showed cardiomegaly with mild volume overload. No other convincing evidence of acute cardiopulmonary disease. Negative for influenza pulmonary toilet with flutter valve and IS Continue oxygen supplement for now Solumedrol changed to Prednisone Continue guaifenesin nebulizer treatment Has been on Levaquin since 05/30, Received 6 days of abx Was discharged on Symbicort on 01/22 but never started it because she cannot afford it and has not followed up with pulmonary Spoke to case liner to check if she can get any assistance to get inhaler (she said that she cannot afford any inhaler) Will discharge on prednisone taper dose Case management gave her information and printed discount document for her to get Symbicort since she cannot afford it Follow up with PCP on Wednesday (2) Chest pain: Atypical features related to cough Troponin x3 negative Repeat troponin this morning negative Repeat EKG this morning showed no ischemic finding Stable (3) Syncope: likely vasovagal due to severe coughing, hypoxia CT head negative for any intracranial abnormality No focal neuro deficit Stable (4) Black stools: Hgb stable (5) Micheal's thyroiditis: continue levothyroxine (6) GERD (gastroesophageal reflux disease): continue PPI (7) DVT prophylaxis: SQ Lovenox CODE STATUS FULL CODE Disposition Discharge home today Follow up with your PCP on Wednesday Subjective Pt was seen and examined Sitting in bed with no distress Pt said that she feels much better today She saturated well on RA She said that she can breath much better today She had one episode of gum bleeding when she was brushing her teeth Denies any chest pain, palpitation, dizziness and SOB Physical Exam Physical Exam: General- No acute distress Head- atraumatic Eyes- PERRL, EOMI, ENT- oropharynx clear Neck- supple, no JVD Lungs- + faint wheezing Heart- regular rhythm; no murmur Abdomen- normal bowel sounds, soft, nontender Extremities- no calf tenderness Neuro- alert, oriented x 3; PERRL, EOMI; no facial palsy; no dysarthria Skin- warm & dry Results & Data Vital Signs (Past 12 Hours) Vital Signs Temp Pulse Pulse Resp BP BP Pulse Ox 06/04/19 14:49 61 18 91 06/04/19 11:21 67 18 95 06/04/19 11:00 36.7 C 56 L 20 140/84 93 06/04/19 09:00 64 06/04/19 07:10 62 20 93 06/04/19 07:00 36.9 C 57 L 158/82 H 93 06/04/19 04:00 37 C 72 20 138/80 92
--- NOTE | 2019-06-04 18:20 | Discharge Summary ---
Date of Service June 04, 2019 Admission HPI Per Admitting Provider 59-year-old female who presents to the ED with cough and shortness of breath. Patient reports she has been sick for the past 1 week. was sick with URI symptoms recently as well. Patient reports persistent cough productive for white/yap sputum. She also has had worsening shortness of breath despite use of nebulizer 5-6 times per day at home. She denies fevers and chills. She also reports some episode of chest pain that happened mostly with coughing however will happen randomly as well. Chest pain resolves on its own. She reports she has had multiple syncopal events. She reports that she will get a severe coughing attack and suspects her oxygen level drops and then she passes out. Over the past few days, she has had a poor appetite, nausea, vomiting, diarrhea. She denies abdominal pain. She denies hematemesis and coffee-ground emesis. She reports stools have been black, loose, very foul-smelling. She denies any urinary symptoms. In the ED, patient is found to be hypoxic on room air at 87%. This improved with 3 L of oxygen via nasal cannula. She was given IV Solu- Medrol, IV magnesium, nebulizer treatment, Tylenol. CXR does not show any acute cardiopulmonary findings and head CT is negative as well. Admission Exam Per Admitting Provider Constitutional: WD/WN, vitals as above + ill appearing and + obese; no acute distress Eyes: PERRL, conjunctivae normal, anicteric sclerae ENMT: external ear and nose normal, oropharynx normal Respiratory: normal respiratory effort, + cough and able to speak in complete sentences; no respiratory distress Auscultation: + diminished lung sounds, + rhonchi (Scattered) and + wheezes (Scattered, expiratory) Cardiovascular: regular rate and regular rhythm Vessels: normal peripheral pulses Extremities: no edema Gastrointestinal: normal bowel sounds, soft, nontender, no hepatosplenomegaly Musculoskeletal: no cyanosis or clubbing, extremities motor strength 5/5 Skin: no rashes, warm and dry Neurologic: PERRL, EOMI, accommodation nl, no face palsy, no dysarthria Psychiatric: A+Ox3, euthymic affect Principal Diagnosis Acute respiratory failure with hypoxia Chest pain Syncope Micheal's thyroiditis GERD Discharge Exam General- No acute distress Head- atraumatic Eyes- PERRL, EOMI, ENT- oropharynx clear Neck- supple, no JVD Lungs- + faint wheezing Heart- regular rhythm; no murmur Abdomen- normal bowel sounds, soft, nontender Extremities- no calf tenderness Neuro- alert, oriented x 3; PERRL, EOMI; no facial palsy; no dysarthria Skin- warm & dry Discharge Data Allergies Allergy/AdvReac Type Severity Reaction Status Date / Time bee venom protein (honey bee) Allergy Severe ANAPHYLAXIS Verified 05/30/19 14:35 codeine Allergy Severe DIFFICULTY Verified 05/30/19 14:35 BREATHING ibuprofen Allergy Unknown swelling Verified 05/30/19 14:35 Consultations 05/30/19 16:50 ED Decision to Admit Stat Ordered Studies 05/30/19 15:13 CT head/brain wo con Stat CT head/brain wo con CLINICAL HISTORY: 59 years-old Female presenting with Pt c/o AMS. TECHNIQUE: Multidetector CT imaging of the head was performed without the use of intravenous contrast. IV contrast: None. One or more dose lowering techniques were used consistent with the principles of ALARA (as low as reasonably achievable), including automatic exposure control, mA or kV adjustment to individual patient size, and/or use of iterative reconstruction. COMPARISON: 01/31/2019. CT DOSE (mGy.cm): The estimated cumulative dose is 537.48 mGy.cm. FINDINGS: Wedding Florist topogram: Unremarkable. Ventricles and sulci normal in size. No hemorrhage. Brain parenchyma normal in appearance with preserved yap-white differentiation. No acute territorial infarct. No mass effect or midline shift. No extra-axial fluid collection. Paranasal sinuses and mastoid air cells clear. Calvarium intact. IMPRESSION: 1. No acute intracranial abnormality. Electronically signed by: Joshua Boyd M.D. 05/30/2019 3:52 PM Dictated: 05/30/19 1550 Transcribed: 05/30/19 1550 XR chest 1V portable CLINICAL HISTORY: 59 years-old Female presenting with Chest Pain. TECHNIQUE: Portable upright AP view of the chest was obtained. COMPARISON: 01/31/2019. FINDINGS: Atherosclerosis of the aortic arch. Cardiac silhouette enlarged. Pulmonary vascular prominence is increased from prior. No focal opacity. No large effusion or pneumothorax. Degenerative changes of the thoracic spine. Cervical metallic fusion hardware. Upper abdomen normal. IMPRESSION: 1. Cardiomegaly with mild volume overload. No other convincing evidence of acute cardiopulmonary disease. Electronically signed by: Joshua Boyd M.D. 05/30/2019 1:15 PM Dictated: 05/30/19 1314 Transcribed: 05/30/19 1314 Hospital Course (1) Acute respiratory failure with hypoxia: Present on admission with SOB associated with productive cough Oxygen on admission 87% Possible related to COPD exacerbation CXR showed cardiomegaly with mild volume overload. No other convincing evidence of acute cardiopulmonary disease. Negative for influenza pulmonary toilet with flutter valve and IS Continue oxygen supplement for now Solumedrol changed to Prednisone Continue guaifenesin nebulizer treatment Has been on Levaquin since 05/30, Received 6 days of abx Was discharged on Symbicort on 01/22 but never started it because she cannot afford it and has not followed up with pulmonary Spoke to family preservation caseworker to check if she can get any assistance to get inhaler (she said that she cannot afford any inhaler) Will discharge on prednisone taper dose Case management gave her information and printed discount document for her to get Symbicort since she cannot afford it Follow up with PCP on Wednesday (2) Chest pain: Atypical features related to cough Troponin x3 negative Repeat troponin this morning negative Repeat EKG this morning showed no ischemic finding Stable (3) Syncope: likely vasovagal due to severe coughing, hypoxia CT head negative for any intracranial abnormality No focal neuro deficit Stable (4) Black stools: Hgb stable (5) Micheal's thyroiditis: continue levothyroxine (6) GERD (gastroesophageal reflux disease): continue PPI (7) DVT prophylaxis: SQ Lovenox CODE STATUS FULL CODE Disposition Discharge home today Follow up with your PCP on Wednesday Total Time Total Time Spent Total Time Spent (In Minutes): 35 minutes Total Time Includes: Examination of the Patient, Discharge Planning, Medication Reconciliation, Communication With Other Providers and Other Discharge Plan Discharge Items Patient Disposition: Home - Self-Care Reason For Visit: COPD EXACERBATION,HYPOXIA Discharge Diagnosis: Acute respiratory failure with hypoxia Chest pain Syncope Micheal's thyroiditis Activity: Resume your previous activity Activity Comment: As tolerated Non-emergency contact: Primary Care Provider Call non-emergency contact if: you have any medication questions and your temperature is above 101 Follow-up/Referrals: Cosmo Olmedo M.D. [Primary Care Provider] - Diet: Heart Healthy Addtl Attending Provider Instructions: Follow up with your primary care provider on Wednesday (Already scheduled) Continue monitor blood pressure Continue prednisone taper course Pending Studies at Discharge: No Stand-Alone Forms: My [facility] Medications and DC Order Prescriptions: New guaifenesin 200 mg Tablet 200 mg PO Q8 Qty: 15 RF: 0 lisinopril [Zestril] 5 mg Tablet 5 mg PO HS 30 Days Qty: 30 RF: 0 prednisone 10 mg tablet 10 mg PO UD 7 Days Qty: 20 RF: 0 Symbicort 80-4.5 mcg/actuation HFA aerosol inhaler 2 puffs INH BID 30 Days Qty: 10.2 RF: 0 Continued hydrocodone-acetaminophen 10-325 mg Tablet 1 tab PO Q6H PRN (Reason: Pain) RF: 0 omeprazole 40 mg Capsule,Delayed Release(Dr/Ec) 40 mg PO BID RF: 0 trazodone 100 mg Tablet 200 mg PO HS RF: 0 levothyroxine 50 mcg Tablet 50 mcg PO DAILY RF: 0 clonazepam 2 mg Tablet 2 mg PO TID RF: 0 gabapentin 300 mg Capsule 300 mg PO TID RF: 0 epinephrine [EpiPen] 0.3 mg/0.3 mL Auto-Injector 0.3 mg IM DIRECTED PRN (Reason: Allergic Reaction) RF: 0 diltiazem HCl 180 mg Capsule,Ext.Rel 24h Degradable 180 mg PO DAILY RF: 0 albuterol sulfate 1.25 mg/3 mL Solution For Nebulization 1.25 mg INHALATION QID PRN (Reason: Shortness Of Breath) RF: 0 [id number] [Fioricet] 50-300-40 mg Capsule 1 cap PO Q6H PRN (Reason: Headache) RF: 0 Discharge Orders: Discharge Order (Routine); Ordered 06/04/19 Ordered By: Malaika Martinez Admission Data Admit Date/Time: 05/30/19 17:30 Attending Provider: Malaika Martinez Admit Provider: Wen Dawn Primary Care Provider: Cosmo Olmedo Other Providers: Wen Dawn Other Interventions: Discharge Summary Assessment (RN) Last Done: 06/04/19 16:14 DC Date/Time DO NOT enter until pt leaves facility: 06/04/19 16:55
== END 2019-06-04 16:55 | disposition home or self-care (01) | DRG 190 ==
LOC: ED 12:08 → SUATTDRO 17:30 → 2N 17:30

== ENCOUNTER 2020-04-24 10:22 | Inpatient (IN) ==
--- NOTE | 2020-04-24 10:45 | Emergency Department Note ---
Impression & Plan Acute exacerbation of chronic obstructive pulmonary disease, Respiratory failure ED Provider Note NAME: RICKIE MOTA AGE: 60 SEX: F : 1960 ARRIVES VIA: Walk-In INFORMANT: Patient, ED PROVIDER(S): Donte Schultz MD Chief Complaint: "I am filling up with fluid." HPI: Patient states that she has noticed an increase in buildup in her fluid. The patient believes that this is in her bilateral lower extremities as well as her bilateral upper extremities. The patient states that she had to remove her rings and was having difficulty clutching a cup of coffee. Patient states that she has been taking her diuretic medication but had increased to 80 mg this morning and had taken to 40 yesterday. Patient denies any change in diet liquids or solids. Patient states she has been compliant with her medications. The patient does complain of some shortness of breath no chest pain. No prior history of DVT or PE. The patient states that she does have a history of heart problems. The patient denies any recent travel fevers or chills, nausea or vomiting. The patient does have a history of COPD and does continue to smoke. ROS: See HPI for pertinent positives and negatives. A total of 10 systems were reviewed and otherwise negative. Past medical history: See below Surgical history: See below Social history: See below Physical Exam: GENERAL: Tired in appearance wearing a mask. NAD, non-toxic. EYE EXAM: Normal conjunctiva. PERRL, no anisocoria and EOM's grossly intact w/o pain. NECK: Supple, no nuchal rigidity, no adenopathy, non-tender. No signs of meningismus. LUNGS: Scant wheezes throughout. Normal chest wall mechanics. HEART: NSR, no MRG. ABDOMEN: Abdomen soft, non-tender, normo-active bowel sounds, no masses, no rebound or guarding. BACK: No CVA TTP. SKIN: No rashes and no bruising. UPPER EXTREMITIES: Upper extremities are grossly normal. LOWER EXTREMITIES: Right lower extremity slightly short compared to the left, mild nonpitting edema of the bilateral lower extremities without erythema, negative Homans sign. NEURO EXAM: A&O x3, cranial nerves II-XII grossly intact, normal speech, moves all 4 extremities on command w/o issue. Differential diagnoses: Reactive airway disease, pneumonia, pneumothorax, COPD, CHF, infections, cardiac ischemia, pulmonary embolism, musculoskeletal, gastrointestinal, as well as other pathologies. Course: Patient was seen and evaluated the bedside. Full history physical exam was performed. EKG: Indication: Shortness of breath Normal sinus rhythm, rate of 78, normal intervals, normal axis, no ST changes or T WI. Imaging Studies: Radiology results as stated below per my review in the radiologist's interpretation: XR chest 1V portable HISTORY: Dyspnea COMPARISON: Chest 07/27/2019. FINDINGS: No pneumothorax or no pleural effusions. The heart remains borderline enlarged. The lungs are clear. Cervical spinal fusion hardware is again noted. IMPRESSION: No significant change compared to the prior study. No acute process. ACT 112: Negative or not required by law. Electronically signed by: Vick Belcher M.D. 04/24/2020 11:41 AM Dictated: 04/24/20 1140 Transcribed: 04/24/20 1140 Cardiac monitoring: An order was placed for continuous cardiac monitoring. The monitor shows a rate of 79 with sinus rhythm. MDM: Patient did present with shortness of breath and lower extremity edema. The patient was hypoxic at the bedside. He was placed on 2 L nasal cannula the patient does have a history of concomitant COPD and does have some scant wheezes. Chest x-ray is negative. Patient has a normal white count H&H and platelet count. Patient does have some mild CO2 retention at 68 but pH is only 7.3. Likely some chronic hypercarbia. Do not believe the patient necessarily has an acute CHF exacerbation. Upon review of her medication list the patient is on narcotics as well as benzodiazepines. This may also be contributory. I did speak with the on-call hospitalist Dr. Romero who agreed to further evaluate treat the patient. Patient was admitted to the medicine service. Duo nebs and steroids were or dered. Critical Care: I have personally spent 45 minutes of critical care time in direct management of this patient. This includes bedside care, interpretation of diagnostic studies, and testing, discussion with consultants, patient, and family members, and other require inpatient management activities. This 45 minutes is in excess of all separately billable procedures. Past Med/Surg History Medical History (Updated 04/24/20 @ 14:25 by Donte Schultz MD) Atrial fibrillation Bee sting allergy Chronic constipation COPD (chronic obstructive pulmonary disease) GERD (gastroesophageal reflux disease) Micheal's thyroiditis Heart attack per patient, "in my 20s due to Lyme disease" Lyme disease Neuropathy Rib deformity s/p surgery Surgical History H/O neck surgery History of appendectomy History of hysterectomy History of surgery history of multiple leg surgeries History of tonsillectomy Family History Mother Lung cancer Social History Smoking Status: Current every day smoker Second Hand Exposure: No; Do You Dip or Chew Tobacco: No; Tobacco Cessation Education Requested by Patient: No Hx Alcohol Use: Yes Alcohol type: beer Hx Substance Use: No Preferred Language: Zimbabwean Communication Ability: Effective Quality Assurance Coach Required: No Beliefs That Will Affect Care: None marital status: / Current Living Situation: Significant Other How many Children do You have: 1 Other Information That Helps Us Care for You: No Feels Safe at Home: Yes Safety Concerns: Feels Safe At This Time Allergies Allergies Allergy/AdvReac Type Severity Reaction Status Date / Time bee venom protein (honey bee) Allergy Severe ANAPHYLAXIS Verified 04/24/20 11:51 codeine Allergy Severe DIFFICULTY Verified 04/24/20 11:51 BREATHING ibuprofen Allergy Unknown swelling Verified 04/24/20 11:51 Home Meds Home Medications Medication Instructions Recorded Confirmed clonazepam 2 mg PO TID 01/31/19 04/24/20 epinephrine [EpiPen] 0.3 mg IM DIRECTED PRN 01/31/19 04/24/20 gabapentin 300 mg PO TID 01/31/19 04/24/20 hydrocodone-acetaminophen 1 tab PO Q6H PRN 01/31/19 04/24/20 levothyroxine 50 mcg PO QAM 01/31/19 04/24/20 omeprazole 40 mg PO BID 01/31/19 04/24/20 trazodone 200 mg PO HS 01/31/19 04/24/20 ygqdgamewo-esuwjrgiqaabm-lekc 1 cap PO Q4H PRN 05/30/19 04/24/20 [Fioricet] diltiazem HCl 180 mg PO QAM 05/30/19 04/24/20 fluticasone furoate-vilanterol 1 inh INHALATION BID 07/27/19 04/24/20 [Breo Ellipta] furosemide [Lasix] 40 mg PO QAM MDD 80 mg 07/27/19 04/24/20 potassium gluconate 500 mg PO BID 07/27/19 04/24/20 Results & Data (ED) Vital Signs Vital Signs - 24 hr 04/24/20 10:40 04/24/20 10:48 04/24/20 11:00 Temperature 37.1 C Temperature Source Oral Pulse Rate 79 Pulse Rate [Apical] Pulse Rate from SpO2 Sensor Respiratory Rate 20 Respiratory Effort / Characteristics Spontaneous Blood Pressure 119/80 Blood Pressure Mean 93 Pulse Oximetry 89 L 92 Oxygen Delivery Method Room Air Nasal Cannula Nasal Cannula Oxygen Flow Rate 2 2 Sepsis Recent Fever Within 48 Hours No Sepsis New/Unexplained Change in Mental Status N/A Sepsis Action Taken by Nursing No Action Required Oxygen Flow Rate - Titration 2 Pulse Oximetry Post Tiitration 92 04/24/20 12:20 04/24/20 12:38 Temperature Temperature Source Pulse Rate 65 Pulse Rate [Apical] 66 Pulse Rate from SpO2 Sensor 65 Respiratory Rate 18 16 Respiratory Effort / Characteristics Non-Labored Spontaneous Blood Pressure 135/81 Blood Pressure Mean 99 Pulse Oximetry 94 95 Oxygen Delivery Method Nasal Cannula Oxygen Flow Rate 2 Sepsis Recent Fever Within 48 Hours Sepsis New/Unexplained Change in Mental Status Sepsis Action Taken by Nursing Oxygen Flow Rate - Titration Pulse Oximetry Post Tiitration Home Medications Current Medication List: was personally reviewed by me Laboratory Data Attestation: I reviewed the patient's lab results. Result diagrams: 04/24/20 11:24 04/24/20 11:24 Lab Results 04/24/20 04/24/20 04/24/20 Range/Units 11:24 11:24 11:24 WBC 6.04 (4.8-10.8) K/uL RBC 4.64 (4.2-5.4) M/uL Hgb 15.0 (12.0-16.0) g/dL Hct 45.7 (37-47) % MCV 98.5 (80-100) fL MCH 32.3 (25-34) pg MCHC 32.8 (32-36) g/dL RDW Std Deviation 50.8 H (36.4-46.3) fL RDW Coeff of Rajiv 14.3 (11.5-14.5) % Plt Count 172 (130-400) K/uL MPV 8.7 (7.4-10.4) fL Immature Gran % (Auto) 0.2 % Neut % (Auto) 54.9 % Lymph % (Auto) 32.0 % [place] % (Auto) 10.9 % Eos % (Auto) 1.5 % Baso % (Auto) 0.5 % Neut # (Auto) 3.32 (1.4-6.5) K/uL Lymph # (Auto) 1.93 (1.2-3.4) K/uL [place] # (Auto) 0.66 H (0.11-0.59) K/uL Eos # (Auto) 0.09 (0-0.5) K/uL Baso # (Auto) 0.03 (0-0.2) K/uL Immature Gran # (Auto) 0.01 (0.00-0.02) K/uL PT 10.4 (9.0-12.0) Seconds INR 1.0 (0.9-1.1) APTT 29.2 (21.0-31.0) Seconds PTT Ratio 1.0 VBG pH (7.36-7.41) VBG pCO2 (38-50) mmHg VBG pO2 mmHg VBG HCO3 mmol/L VBG O2 Saturation % VBG Base Excess mEq/L Barometric Pressure mm/Hg Sodium 139 (136-145) mmol/L Potassium 3.6 (3.5-5.1) mmol/L Chloride 101 (98-107) mmol/L Carbon Dioxide 34 H (21-32) mmol/L Anion Gap 4.0 (3-11) BUN 11 (7-18) mg/dl Creatinine 1.01 (0.6-1.2) mg/dl Est Cr Clr Drug Dosing 84.9 ml/min Est GFR ( Amer) 69.1 Est GFR (Non-Af Amer) 59.6 BUN/Creatinine Ratio 11.1 (10-20) Glucose 102 H (70-99) mg/dl Calcium 9.1 (8.5-10.1) mg/dl Phosphorus 3.3 (2.5-4.9) mg/dl Magnesium 1.9 (1.8-2.4) mg/dl Total Bilirubin 0.5 (0.2-1) mg/dl AST 12 L (15-37) U/L ALT 18 (12-78) U/L Alkaline Phosphatase 105 (45-117) U/L Troponin I < 0.015 (0-0.045) ng/ml NT-Pro-B Natriuret Pep 90 (0-900) pg/ml Total Protein 7.0 (6.4-8.2) gm/dl Albumin 3.3 L (3.4-5.0) gm/dl Globulin 3.7 (2.5-4.0) gm/dl Albumin/Globulin Ratio 0.9 (0.9-2) TSH (0.300-4.500) uIu/ml 04/24/20 04/24/20 Range/Units 11:24 11:24 WBC (4.8-10.8) K/uL RBC (4.2-5.4) M/uL Hgb (12.0-16.0) g/dL Hct (37-47) % MCV (80-100) fL MCH (25-34) pg MCHC (32-36) g/dL RDW Std Deviation (36.4-46.3) fL RDW Coeff of Rajiv (11.5-14.5) % Plt Count (130-400) K/uL MPV (7.4-10.4) fL Immature Gran % (Auto) % Neut % (Auto) % Lymph % (Auto) % [place] % (Auto) % Eos % (Auto) % Baso % (Auto) % Neut # (Auto) (1.4-6.5) K/uL Lymph # (Auto) (1.2-3.4) K/uL [place] # (Auto) (0.11-0.59) K/uL Eos # (Auto) (0-0.5) K/uL Baso # (Auto) (0-0.2) K/uL Immature Gran # (Auto) (0.00-0.02) K/uL PT (9.0-12.0) Seconds INR (0.9-1.1) APTT (21.0-31.0) Seconds PTT Ratio VBG pH 7.34 L (7.36-7.41) VBG pCO2 68 H (38-50) mmHg VBG pO2 49 mmHg VBG HCO3 36 mmol/L VBG O2 Saturation 81.1 % VBG Base Excess 7.5 mEq/L Barometric Pressure 732.0 mm/Hg Sodium (136-145) mmol/L Potassium (3.5-5.1) mmol/L Chloride (98-107) mmol/L Carbon Dioxide (21-32) mmol/L Anion Gap (3-11) BUN (7-18) mg/dl Creatinine (0.6-1.2) mg/dl Est Cr Clr Drug Dosing ml/min Est GFR ( Amer) Est GFR (Non-Af Amer) BUN/Creatinine Ratio (10-20) Glucose (70-99) mg/dl Calcium (8.5-10.1) mg/dl Phosphorus (2.5-4.9) mg/dl Magnesium (1.8-2.4) mg/dl Total Bilirubin (0.2-1) mg/dl AST (15-37) U/L ALT (12-78) U/L Alkaline Phosphatase (45-117) U/L Troponin I (0-0.045) ng/ml NT-Pro-B Natriuret Pep (0-900) pg/ml Total Protein (6.4-8.2) gm/dl Albumin (3.4-5.0) gm/dl Globulin (2.5-4.0) gm/dl Albumin/Globulin Ratio (0.9-2) TSH 1.680 (0.300-4.500) uIu/ml Administered Medications Discontinued Medications Albuterol (Albut/Ipratrop 3mg/0.5mg Neb 3 Ml Vial) 12 ml NEB ONE ONE Stop: 04/24/20 12:19 Last Admin: 04/24/20 12:34 Dose: 12 ml Documented by: [id number] Furosemide (Furosemide 40 Mg/4 Ml Vial) Confirm Administered Dose 80 mg IV .STK- MED ONE Stop: 04/24/20 13:48 Last Admin: 04/24/20 13:55 Dose: 80 mg Documented by: [id number] Methylprednisolone (Methylprednisolone 125 Mg/2 Ml Vial) 60 mg IV NOW STA Stop: 04/24/20 12:19 Last Admin: 04/24/20 12:30 Dose: 60 mg Documented by: [id number] Methylprednisolone (Methylprednisolone 40 Mg/Ml Vial) Confirm Administered Dose 80 mg .ROUTE .STK-MED ONE Stop: 04/24/20 12:28 Last Admin: 04/24/20 12:29 Dose: Not Given Documented by: [id number] Discharge Plan Visit Data Chief Complaint: Cardiac Assessment Stated Complaint: SENT BY - CONGESTIVE HEART FAILURE ED Provider: Donte Schultz Discharge Problem: Acute exacerbation of chronic obstructive pulmonary disease, Respiratory failure Patient Disposition: Admitted As Inpatient Discharge Instructions Interventions: ED Discharge Assessment Last Done: 04/24/20 13:55 Discharge Problem: Respiratory failure Qualifiers: Chronicity: acute Respiratory failure complication: hypoxia Qualified Code(s): J96.01 - Acute respiratory failure with hypoxia
[2020-04-24 11:38] LABS: Base Excess VBG 7.5 mEq/L; Basophils # (auto) 0.03 K/uL (0-0.2); Basophils % (auto) 0.5 %; Eosinophils # (auto) 0.09 K/uL (0-0.5); Eosinophils % (auto) 1.5 %; Hematocrit (blood only) 45.7 % (37-47); Immature Granulocytes # (auto) 0.01 K/uL (0.00-0.02); Immature Granulocytes % (auto) 0.2 %; Lymphocytes # (auto) 1.93 K/uL (1.2-3.4); Mean Corpuscular Hemoglobin 32.3 pg (25-34); Mean Corpuscular Hgb Conc 32.8 g/dL (32-36); Mean Corpuscular Volume 98.5 fL (80-100); Mean Platelet Volume 8.7 fL (7.4-10.4); Monocytes # (auto) 0.66 K/uL (0.11-0.59); Monocytes % (auto) 10.9 %; Neutrophils # (auto) 3.32 K/uL (1.4-6.5); Neutrophils % (auto) 54.9 %; Oxygen Saturation VBG 81.1 %; Platelet Count 172 K/uL (130-400); RDW Coefficient of Variation 14.3 % (11.5-14.5); RDW Standard Deviation 50.8 fL (36.4-46.3); Red Blood Count 4.64 M/uL (4.2-5.4); White Blood Count 6.04 K/uL (4.8-10.8); pH VBG 7.34 (7.36-7.41)
--- NOTE | 2020-04-24 11:42 | XRay Report ---
XR chest 1V portable HISTORY: Dyspnea COMPARISON: Chest 07/27/2019. FINDINGS: No pneumothorax or no pleural effusions. The heart remains borderline enlarged. The lungs a re clear. Cervical spinal fusion hardware is again noted. IMPRESSION: No significant change compared to the prior study. No acute process. ACT 112: Negative or not required by law. Electronically signed by: Vick Belcher M.D. 04/24/2020 11:41 AM
[2020-04-24 11:49] LABS: Partial Thromboplastin Time 29.2 Seconds (21.0-31.0); Prothrombin Time 10.4 Seconds (9.0-12.0)
[2020-04-24 11:56] LABS: Alanine Aminotransferase 18 U/L (12-78); Albumin Level 3.3 gm/dl (3.4-5.0); Aspartate Aminotransferase 12 U/L (15-37); BUN Creatinine Ratio 11.1 (10-20); Blood Urea Nitrogen 11 mg/dl (7-18); Calcium 9.1 mg/dl (8.5-10.1); Carbon Dioxide 34 mmol/L (21-32); Chloride 101 mmol/L (98-107); Creatinine Clr Calc Pharmacy 84.9 ml/min; Est GFR (African American) 69.1; Est GFR (Non-African American) 59.6; Glucose 102 mg/dl (70-99); Magnesium 1.9 mg/dl (1.8-2.4); Potassium 3.6 mmol/L (3.5-5.1); Sodium 139 mmol/L (136-145)
[2020-04-24 12:01] LABS: Albumin Globulin Ratio 0.9 (0.9-2); Alkaline Phosphatase 105 U/L (45-117); Bilirubin,Total 0.5 mg/dl (0.2-1); Globulin 3.7 gm/dl (2.5-4.0); NT Pro B Type Natriuretic Pept 90 pg/ml (0-900); Phosphorus 3.3 mg/dl (2.5-4.9); Troponin I < 0.015 ng/ml (0-0.045)
[2020-04-24] MEDS ORDERED: ALBUT/IPRATROP 3MG/0.5MG NEB 3 ML VIAL NEB ONE (12:18)
[2020-04-24] MEDS ORDERED: methylPREDNISolone 125 MG/2 ML VIAL IV STA (12:18)
--- NOTE | 2020-04-24 12:38 | Electrocardiogram Report ---
Test Reason : Blood Pressure : / mmHG Vent. Rate : 078 BPM Atrial Rate : 078 BPM P-R Int : 150 ms QRS Dur : 100 ms QT Int : 390 ms P-R-T Axes : 063 038 042 degrees QTc Int : 444 ms Normal sinus rhythm Normal ECG When compared with ECG of 27-JUL-2019 13:10, No significant change was found Confirmed by Wiley Fishman ([id number]) on 04/24/2020 12:38:06 PM Referred By: ED Confirmed By:Wiley Fishman
--- NOTE | 2020-04-24 13:22 | History & Physical Report ---
Date of Service April 24, 2020 Assessment & Plan (1) Acute respiratory failure with hypoxia and hypercapnia: Suspect combination of obesity hypoventilation, obstructive sleep apnea, COPD, continued smoking. However none of these explain why she is worse acutely unless she is having a COPD exacerbation for which she filled the DuoNebs and not having much or effect. Defer further steroids for COPD exacerbation treatment for now. Given perceived swelling, weight gain and increased fluid intake recently we will give 80 mg Lasix IV for right-sided heart failure and monitor BMP closely. TSH WNL. Overnight pulse oximetry ABG in a.m. if not needing O2 overnight (2) Right-sided heart failure: Dubious diagnosis as suspect her elevated Bicarb may represent contraction alkalosis with recent increases in her lasix. However given perceived swelling will give her an IV challange and repeat BMP tomorrow. Regardless treatment would mainly be for her lung problems below. Lasix IV 80 mg now, further dosing depending on clinical picture and BMP carlos a rrow Strict I's and O's Low-sodium, heart healthy, fluid restriction 1200ml Given no pulmonary edema on chest x-ray and no suspected left-sided heart failure will defer repeating her echocardiogram (3) GERD (gastroesophageal reflux disease): Switch omeprazole for pantoprazole as per hospital formulary (4) Chronic constipation: X-ray KUB If no obstruction seen on x-ray start senna QPM and MiraLAX 3 times daily as likely contributing with obesity hypoventilation towards acute respiratory failure (5) Micheal's thyroiditis: Concerning non-pitting leg swelling for myxedema however TSH WNL Continue levothyroxine 50 mcg PO daily (6) Obesity hypoventilation syndrome: Continued weight loss recommended (7) Obstructive sleep apnea: Suspected based on history. Will avoid BiPAP at present and get overnight sleep study with morning ABG (8) Leg swelling: Mild pitting edema in ankles. Patient description consistent with lymphedema. Follow up with PCP to make sure up to date with all cancer screening Less likely right sided heart failure as above given non-pitting. (9) COPD (chronic obstructive pulmonary disease): Smoking history but no outpatient PFTs. No significant improvement with duonebs. Prior CTA without emphysematous changes. Peribronchial thickening noted more consistent with asthma - no other allergy symptoms noted by patient on admission. No wheezing, no further steroids planned (10) Adrenal hyperplasia: Steroids given in ER Incidentally noted on prior CT Recommend outpatient Vj's workup if not previously performed. Admission and Anticipated Discharge Date Admission Date: 04/24/2020 History of Present Illness Chief Complaint: Shortness of breath, generalized swelling Primary Care Provider: Cosmo Olmedo M.D. Hira Chan is a 60-year-old female on chronic prescription benzodiazepines and opiates who presents to the ER with concerns of shortness of breath, hypoxia and generalized swelling. She reports her weight is increased 7 pounds when she weighed herself this morning since yesterday. She does note significant changes in her weight throughout the day and is also very concerned about this. Usually swelling goes down at night when lying down however today this did not happen. She denies any orthopnea, PND. Shortness of breath much worse on exertion. She is been getting increasingly short of breath over the past week but especially the last 2 days. She has a possible diagnosis of COPD with urinary recent exacerbation. She denies any wheezing or increasing cough. Associated chest pain which is nonexertional and worse on palpation. Currently her pain is 0/10. It is no worse today than it has been over the last 3 days. Pain only occurs on palpation. She does note falling 2.5 weeks ago and wonders whether her pain started after this. On that occasion she was coming out of a swimming pool, slipped and fell onto her right side. No presyncopal symptoms and no loss of consciousness. She did not seek medical attention at this time. She does note a prior sleep study 5 years ago at [facility] and reports this was normal. Allergies Allergy/AdvReac Type Severity Reaction Status Date / Time bee venom protein (honey bee) Allergy Severe ANAPHYLAXIS Verified 04/24/20 11:51 codeine Allergy Severe DIFFICULTY Verified 04/24/20 11:51 BREATHING ibuprofen Allergy Unknown swelling Verified 04/24/20 11:51 Home Medications Home Medications Medication Instructions Recorded Confirmed Type clonazepam 2 mg PO TID 01/31/19 04/24/20 History epinephrine [EpiPen] 0.3 mg IM DIRECTED PRN 01/31/19 04/24/20 History gabapentin 300 mg PO TID 01/31/19 04/24/20 History hydrocodone-acetaminophen 1 tab PO Q6H PRN 01/31/19 04/24/20 History levothyroxine 50 mcg PO QAM 01/31/19 04/24/20 History omeprazole 40 mg PO BID 01/31/19 04/24/20 History trazodone 200 mg PO HS 01/31/19 04/24/20 History ovryrcbdoi-oemcdavacuuun-fruo 1 cap PO Q4H PRN 05/30/19 04/24/20 History [Fioricet] diltiazem HCl 180 mg PO QAM 05/30/19 04/24/20 History Breo Ellipta 1 inh INHALATION BID 07/27/19 04/24/20 History furosemide [Lasix] 40 mg PO QAM MDD 80 mg 07/27/19 04/24/20 History potassium gluconate 500 mg PO BID 07/27/19 04/24/20 History polyethylene glycol 3350 [Miralax] 17 g PO TID 30 Days ea 04/26/20 Rx sennosides [Senokot] 17.2 mg PO QPM 30 Days #60 tab 04/26/20 Rx Past Med/Surg History Medical History (Updated 04/25/20 @ 02:21 by Yayo Romero MD) Atrial fibrillation Bee sting allergy Chronic constipation COPD (chronic obstructive pulmonary disease) GERD (gastroesophageal reflux disease) Micheal's thyroiditis Heart attack per patient, "in my 20s due to Lyme disease" Lyme disease Neuropathy Rib deformity s/p surgery Surgical History H/O neck surgery History of appendectomy History of hysterectomy History of surgery history of multiple leg surgeries History of tonsillectomy Family History Mother Lung cancer Social History Smoking Status: Current every day smoker Second Hand Exposure: No; Hx Alcohol Use: Yes Alcohol type: beer Hx Substance Use: No Preferred Language: Sami Communication Ability: Effective Car Seat Maker Required: No Beliefs That Will Affect Care: None marital status: / Current Living Situation: Significant Other How many Children do You have: 1 Feels Safe at Home: Yes Review of Systems Review of Systems: All systems reviewed & are unremarkable except as noted in HPI & below Physical Exam Constitutional: well developed and + obese; + not well nourished and no acute distress Eyes: PERRL, conjunctivae normal, anicteric sclerae ENMT: external ear and nose normal, oropharynx normal Neck: trachea midline, no thyromegaly Respiratory: normal respiratory effort and able to speak in complete sentences; no respiratory distress, no retractions and does not use accessory muscles Auscultation: + breath sounds absent (Bibasal) and + diminished lung sounds (Throughout); no crackles, no rales and no wheezes Cardiovascular: Rate/Rhythm: regular rate and regular rhythm Heart Sounds: no murmur Vessels: radial pulses present (Equal) Extremities: normal capillary refill and + pedal edema (1+ equal bilaterally to mid shins); no calf tenderness and no edema (No pitting edema in arms, abdomen, thighs) Gastrointestinal (Abdomen): normal bowel sounds, soft, nontender, no hepatosplenomegaly Musculoskeletal: no cyanosis or clubbing, extremities motor strength 5/5 Skin: no rashes, warm and dry Neurologic: moves all extremities and awake; not confused Psychiatric: Orientation: alert and oriented x 3 Affect: + anxious affect Genitourinary: no CVA tenderness Lymphatic: no cervical or axillary lymphadenopathy Results & Data Results & Data ([facility]) Vital Signs (Past 12 Hours) Vital Signs Temp Pulse Pulse Resp BP Pulse Ox 04/24/20 13:01 73 17 148/50 H 99 04/24/20 12:38 66 16 95 04/24/20 12:20 65 18 135/81 94 04/24/20 10:48 92 04/24/20 10:40 37.1 C 79 20 119/80 89 L Diagnostic Findings XR chest 1V portable IMPRESSION: No significant change compared to the prior study. No acute process. Code Status & VTE Plan Code Status Conditional - all treatment outside of a cardiac arrest VTE Prophylaxis Plan VTE Prophylaxis will be ordered: Yes PG Care Time/CCT Total # of Minutes Spent Total Time Spent with Patient: Total time spent is greater than 50% in coordination of care (as documented) at patient's floor/unit and/or counseling patient: Coding Level of Care Code 08639 Initial Inpt Care Lvl 3 Diagnoses Acute respiratory failure with hypoxia and hypercapnia J96.01; J96.02 Right-sided heart failure I50.810 GERD (gastroesophageal reflux disease) K21.9 Chronic constipation K59.09 Micheal's thyroiditis E06.3 Obesity hypoventilation syndrome E66.2 Obstructive sleep apnea G47.33 Leg swelling M79.89 COPD (chronic obstructive pulmonary disease) J44.9 COPD type: unspecified COPD Adrenal hyperplasia E27.8 (1) COPD (chronic obstructive pulmonary disease) COPD type: unspecified COPD Qualified Code(s): J44.9 - Chronic obstructive pulmonary disease, unspecified
[2020-04-24] MEDS ORDERED: FUROSEMIDE 40 MG/4 ML VIAL IV STA (13:40)
[2020-04-24] MEDS ORDERED: FUROSEMIDE 40 MG/4 ML VIAL IV ONE (13:47)
[2020-04-24] MEDS ORDERED: ACETAMINOPHEN 325 MG TAB PO PRN (14:46)
[2020-04-24] MEDS: POLYETHYLENE (MIRALAX) 17 GM PACK PO SCH ×2 (15:32→20:25)
[2020-04-24] MEDS: clonazePAM 1 MG TAB PO SCH ×2 (15:33→20:25)
[2020-04-24] MEDS: GABAPENTIN 300 MG CAP PO SCH ×2 (17:49→20:26)
[2020-04-24] MEDS: SENNA 8.6 MG TAB PO SCH (20:25)
[2020-04-24] MEDS: PANTOprazole 40 MG TAB PO SCH (20:25)
[2020-04-24] MEDS: TRAZODONE HCL 100 MG TAB PO SCH (20:26)
[2020-04-24] MEDS: HYDROCODONE/ACETAMINOPHEN 10/325 TAB PO PRN (20:29)
--- NOTE | 2020-04-24 20:45 | XRay Report ---
KUB HISTORY: Fecal impaction with bowel obstruction fecal impaction, obstruction COMPARISON: Chest radiograph 04/24/2020, CT abdomen and pelvis 07/27/2019. FINDINGS: The bowel gas pattern is nonobstructive. Moderate fecal retention. Pelvic basin calcificati ons suggest phleboliths. No renal calculi. No ureteral calculi. No pneumoperitoneum or pneumatosis. Chronic deformity of the left anterior superior iliac spine. Degenerative changes of the spine, pelvi s and hips. No fracture. IMPRESSION: 1. Nonobstructive bowel gas pattern. 2. Moderate fecal retention. ACT 112: Negative or not required by law. The above report was generated using voice recognition software. It may contain grammatical, syntax o r spelling errors. Electronically signed by: Slade Mora M.D. 04/24/2020 8:44 PM
[2020-04-24 23:36] LABS: Appearance Urine Clear (Clear); Bacteria Urine Automated Negative (Negative); Bilirubin Urine Negative (Negative); Blood Urine Negative (Negative); Cast Urine Automated 0 /lpf (0-5); Color Urine Yellow; Epithelial Cell Urine Auto >30 /lpf (0-5); Glucose Urine UA Negative (Negative); Ketones Urine Negative (Negative); Leukocyte Esterase Urine Trace (Negative); Nitrite Urine Negative (Negative); Protein Urine Negative (Negative); RBC Urine Automated 0-4 /hpf (0-4); Specific Gravity Urine 1.013 (1.000-1.030); Urobilinogen Urine Negative (Negative); pH Urine 6.5 (4.5-7.5)
[2020-04-24 23:50] LABS: Amphetamines+Metham, Urine Neg (Neg); Barbiturates, Urine Neg (Neg); Benzodiazepine, Urine Neg (Neg); Cocaine, Urine Neg (Neg); MDMA (Ecstacy), Urine Pos (Neg); Methadone, Urine Neg (Neg); Opiate, Urine Pos (Neg); Phencyclidine, Urine Neg (Neg)
[2020-04-25] MEDS: HYDROCODONE/ACETAMINOPHEN 10/325 TAB PO PRN ×3 (03:52→22:20)
[2020-04-25] MEDS: LEVOTHYROXINE SODIUM 50 MCG TABLET PO SCH (05:34)
[2020-04-25 06:28] LABS: Hematocrit (blood only) 44.7 % (37-47); Hemoglobin 14.5 g/dL (12.0-16.0); Immature Granulocytes # (auto) 0.02 K/uL (0.00-0.02); Immature Granulocytes % (auto) 0.2 %; Lymphocytes # (auto) 0.95 K/uL (1.2-3.4); Lymphocytes % (auto) 9.4 %; Mean Corpuscular Hemoglobin 32.4 pg (25-34); Mean Corpuscular Hgb Conc 32.4 g/dL (32-36); Mean Platelet Volume 8.8 fL (7.4-10.4); Monocytes # (auto) 0.62 K/uL (0.11-0.59); Monocytes % (auto) 6.1 %; Neutrophils % (auto) 84.3 %; Platelet Count 200 K/uL (130-400); RDW Coefficient of Variation 13.9 % (11.5-14.5); RDW Standard Deviation 50.3 fL (36.4-46.3); Red Blood Count 4.47 M/uL (4.2-5.4); White Blood Count 10.09 K/uL (4.8-10.8)
[2020-04-25 06:29] LABS: Base Excess ABG 9.5 mEq/L (-9-1.8); HCO3 ABG 37 mmol/L (19-24); Oxygen Saturation ABG 92.4 % (90-95); PCO2 ABG 62 mmHg (35-46); PO2 ABG 65 mmHg (80-95); pH ABG 7.39 (7.35-7.45)
[2020-04-25 06:31] LABS: Allen Test Pos (Pos)
[2020-04-25 07:00] LABS: Albumin Level 3.2 gm/dl (3.4-5.0); BUN Creatinine Ratio 19.6 (10-20); Calcium 9.2 mg/dl (8.5-10.1); Creatinine Clr Calc Pharmacy 114.2 ml/min; Est GFR (African American) 100.6; Est GFR (Non-African American) 86.8
[2020-04-25 07:02] LABS: Bilirubin,Total 0.6 mg/dl (0.2-1); Globulin 3.3 gm/dl (2.5-4.0); Total Protein 6.5 gm/dl (6.4-8.2)
[2020-04-25] MEDS: GABAPENTIN 300 MG CAP PO SCH ×3 (08:55→20:22)
[2020-04-25] MEDS: clonazePAM 1 MG TAB PO SCH ×3 (08:55→20:21)
[2020-04-25] MEDS: POLYETHYLENE (MIRALAX) 17 GM PACK PO SCH ×3 (08:56→20:23)
[2020-04-25] MEDS: PANTOprazole 40 MG TAB PO SCH ×2 (08:56→20:22)
[2020-04-25] MEDS: dilTIAZem HCL 180 MG CAPCR PO SCH (08:56)
[2020-04-25] MEDS: FLUTICASONE/VILANTEROL 100/25MCG 14 PUFFS/INHALER INH SCH (09:00)
[2020-04-25] MEDS ORDERED: bisacodyL 10 MG SUPP PR STA (10:42)
[2020-04-25] MEDS ORDERED: MAGNESIUM CITRATE 296 ML/BTL PO SCH (11:45)
--- NOTE | 2020-04-25 12:20 | Hospitalist Progress Note ---
Date of Service April 25, 2020 Assessment & Plan (1) Acute respiratory failure with hypoxia and hypercapnia: Suspect combination of obesity hypoventilation, obstructive sleep apnea, COPD, continued smoking. She still requires oxygen especially with ambulation. Two-step ordered. I suspect she will need home oxygen at discharge. No current wheezing or rhonchi. No inspiratory rales. Chronic bicarbonate elevation due to chronic CO2 retention. (2) Right-sided heart failure: Probably chronic. Parenteral Lasix. Strict I's and O's Low-sodium, heart healthy, fluid restriction 1200ml Given no pulmonary edema on chest x-ray and no suspected left-sided heart failure will defer repeating her echocardiogram (3) GERD (gastroesophageal reflux disease): (4) Chronic constipation: X-ray KUB negative for obstruction. Continue MiraLAX. Administer magnesium citrate once today and a Dulcolax rectal suppository. (5) Micheal's thyroiditis: TSH WNL Continue levothyroxine 50 mcg PO daily (6) Neuropathy: Medical management Present on Admission?: Yes (7) Obesity hypoventilation syndrome: Aggressive weight loss recommended Present on Admission?: Yes (8) Obstructive sleep apnea: Candidate for outpatient sleep study (9) Leg swelling: Mild pitting edema in ankles. Chronic venous insufficiency. Right sided heart failure contributing . (10) COPD (chronic obstructive pulmonary disease): Smoking history but no outpatient PFTs. Prior CTA without emphysematous changes. No infiltrates or effusions. (11) Adrenal hyperplasia: Incidentally noted on prior CT. Outpatient follow-up with PCP (12) DVT prophylaxis: Lovenox or heparin therapy Admission and Anticipated Discharge Date Admission Date: April 24, 2020 Subjective Main complaint is constipation. She is on MiraLAX 3 times a day. We will give 1 dose of magnesium citrate today along with a Dulcolax suppository. It appears she will need home oxygen. Two-step desaturation study has been ordered. Hopefully home tomorrow with oxygen therapy. Review of Systems Review of Systems: Constitutional-no fever or chills ENT-no blurred vision, no double vision, no epistaxis, no sore throat Respiratory-no cough, no wheezing. Dyspnea on exertion Cardiac-no palpitations, no chest pain. Near syncope after ambulating this morning. No palpitations. GI-no nausea, vomiting, diarrhea, melena, hematochezia. Constipated for greater than 1 week -no urinary retention, no urinary incontinence, no dysuria, no hematuria Musculoskeletal-no joint pain, no muscle tenderness Skin-no bruising, no rashes, no pruritus Neuro-no isolated weakness, no paresthesia, no weakness Psych-no depression, no anxiety Physical Exam Physical Exam: General-alert and oriented x3, no fevers, no chills HEENT-head atraumatic and normocephalic, TMs intact bilaterally, pupils equal and reactive to light, extraocular muscles intact Neck-no lymphadenopathy or thyromegaly, trachea midline Chest-clear to auscultation percussion. No rales wheezing or rhonchi. Diminished breath sounds bilaterally Cardiac-regular rate and rhythm, normal S1 and S2, no murmurs Abdomen-normal bowel sounds, nontender, no hepatosplenomegaly Extremities-no cyanosis, clubbing, or edema Neuro-cranial nerves II through XII intact, motor and sensory function within normal limits, strength symmetrical 5/5, no focal deficits Psych-depressed affect Results & Data Results & Data ([facility]) Vital Signs (Past 12 Hours) Vital Signs Temp Pulse Pulse Pulse Pulse Pulse Resp 04/25/20 11:49 36.8 C 69 16 04/25/20 11:46 04/25/20 11:26 85 90 82 04/25/20 07:00 36.8 C 63 18 04/25/20 05:39 76 04/25/20 04:00 36.2 C L 59 L 18 04/25/20 03:20 63 04/25/20 01:09 66 04/25/20 00:47 71 Resp Resp Resp BP Pulse Ox Pulse Ox Pulse Ox 04/25/20 11:49 101/65 90 04/25/20 11:46 91 04/25/20 11:26 22 22 20 90 04/25/20 07:00 143/85 H 90 04/25/20 05:39 04/25/20 04:00 105/67 92 04/25/20 03:20 04/25/20 01:09 04/25/20 00:47 Pulse Ox Pulse Ox Pulse Ox Pulse Ox 04/25/20 11:49 04/25/20 11:46 89 L 85 L 04/25/20 11:26 89 L 89 L 04/25/20 07:00 04/25/20 05:39 94 08/20/20 04:00 04/25/20 03:20 92 04/25/20 01:09 94 04/25/20 00:47 Laboratory Results 04/25/20 06:10 04/25/20 06:10 PG Care Time/CCT Total # of Minutes Spent Total Time Spent with Patient: Total time spent is greater than 50% in coordi nation of care (as documented) at patient's floor/unit and/or counseling patient: Coding Level of Care Code 16638 Subseq Hosp Care Lvl 3 Diagnoses Acute respiratory failure with hypoxia and hypercapnia J96.01; J96.02 Right-sided heart failure I50.810 GERD (gastroesophageal reflux disease) K21.9 Chronic constipation K59.09 Micheal's thyroiditis E06.3 Neuropathy G62.9 Obesity hypoventilation syndrome E66.2 Obstructive sleep apnea G47.33 Leg swelling M79.89 COPD (chronic obstructive pulmonary disease) J44.9 COPD type: unspecified COPD Adrenal hyperplasia E27.8 DVT prophylaxis Z29.9 (1) COPD (chronic obstructive pulmonary disease) COPD type: unspecified COPD Qualified Code(s): J44.9 - Chronic obstructive pulmonary disease, unspecified
[2020-04-25] MEDS ORDERED: ENOXAPARIN INJ 40 MG/0.4 ML SYR SQ ONE (12:21)
[2020-04-25] MEDS: TRAZODONE HCL 100 MG TAB PO SCH (20:22)
[2020-04-25] MEDS: SENNA 8.6 MG TAB PO SCH (20:24)
[2020-04-26] MEDS: HYDROCODONE/ACETAMINOPHEN 10/325 TAB PO PRN (05:44)
[2020-04-26] MEDS: LEVOTHYROXINE SODIUM 50 MCG TABLET PO SCH (05:45)
[2020-04-26 06:14] LABS: Basophils # (auto) 0.01 K/uL (0-0.2); Basophils % (auto) 0.1 %; Eosinophils # (auto) 0.04 K/uL (0-0.5); Eosinophils % (auto) 0.5 %; Hematocrit (blood only) 42.9 % (37-47); Hemoglobin 13.7 g/dL (12.0-16.0); Immature Granulocytes # (auto) 0.01 K/uL (0.00-0.02); Immature Granulocytes % (auto) 0.1 %; Lymphocytes # (auto) 2.36 K/uL (1.2-3.4); Lymphocytes % (auto) 29.1 %; Mean Corpuscular Hemoglobin 32.5 pg (25-34); Mean Corpuscular Hgb Conc 31.9 g/dL (32-36); Mean Corpuscular Volume 101.7 fL (80-100); Mean Platelet Volume 8.9 fL (7.4-10.4); Monocytes # (auto) 0.72 K/uL (0.11-0.59); Monocytes % (auto) 8.9 %; Neutrophils # (auto) 4.96 K/uL (1.4-6.5); Neutrophils % (auto) 61.3 %; Platelet Count 194 K/uL (130-400); RDW Coefficient of Variation 14.5 % (11.5-14.5); RDW Standard Deviation 53.8 fL (36.4-46.3); Red Blood Count 4.22 M/uL (4.2-5.4)
[2020-04-26 06:47] LABS: BUN Creatinine Ratio 26.7 (10-20); Calcium 9.1 mg/dl (8.5-10.1); Creatinine Clr Calc Pharmacy 100.6 ml/min; Est GFR (African American) 86.3; Est GFR (Non-African American) 74.5; Potassium 4.2 mmol/L (3.5-5.1)
[2020-04-26] MEDS: clonazePAM 1 MG TAB PO SCH (09:00)
[2020-04-26] MEDS ORDERED: ENOXAPARIN INJ 40 MG/0.4 ML SYR SQ SCH (09:00)
[2020-04-26] MEDS: POLYETHYLENE (MIRALAX) 17 GM PACK PO SCH (09:00)
[2020-04-26] MEDS: PANTOprazole 40 MG TAB PO SCH (09:01)
[2020-04-26] MEDS: dilTIAZem HCL 180 MG CAPCR PO SCH (09:01)
[2020-04-26] MEDS: GABAPENTIN 300 MG CAP PO SCH (09:01)
[2020-04-26] MEDS: FLUTICASONE/VILANTEROL 100/25MCG 14 PUFFS/INHALER INH SCH (09:02)
--- NOTE | 2020-04-26 09:52 | Discharge Summary ---
Date of Service April 26, 2020 Admission HPI Per Admitting Provider Hira Chan is a 60-year-old female on chronic prescription benzodiazepines and opiates weight increase Swelling didn't go down in feet and weight up 7lb today. Shortness of breath and chest pressure - costochondritis Fell 2.5 weeks ago. Came out of swelling pool and feel on right side. Slipped. No LOC. Sleep nirmal Principal Diagnosis Acute respiratory failure Discharge Exam Constitutional WD/WN, vitals as above Eyes PERRL, conjunctivae normal, anicteric sclerae ENMT external ear and nose normal, oropharynx normal Neck trachea midline, no thyromegaly Respiratory diminished BS bilaterally Cardiovascular RRR, no murmur, no edema Gastrointestinal (Abdomen) normal bowel sounds, soft, nontender, no hepatosplenomegaly Musculoskeletal no cyanosis or clubbing, extremities motor strength 5/5 Skin no rashes, warm and dry Neurologic PERRL, EOMI, accommodation nl, no face palsy, no dysarthria CN's II-XI intact bilaterally Psychiatric A+Ox3, euthymic affect Discharge Data Allergies Allergy/AdvReac Type Severity Reaction Status Date / Time bee venom protein (honey bee) Allergy Severe ANAPHYLAXIS Verified 04/24/20 11:51 codeine Allergy Severe DIFFICULTY Verified 04/24/20 11:51 BREATHING ibuprofen Allergy Unknown swelling Verified 04/24/20 11:51 Consultations 04/24/20 13:44 ED Decision to Admit Stat 04/24/20 14:46 Consult Health Information Management Routine 04/25/20 10:42 [facility] [place] Referral Routine Hospital Course (1) Acute respiratory failure with hypoxia and hypercapnia: Suspect combination of obesity hypoventilation, obstructive sleep apnea, COPD, continued smoking. She still requires oxygen especially with ambulation. Two-step ordered. I suspect she will need home oxygen at discharge. No current wheezing or rhonchi. No inspiratory rales. Chronic bicarbonate elevation due to chronic CO2 retention. (2) Right-sided heart failure: Probably chronic. Parenteral Lasix. Strict I's and O's Low-sodium, heart healthy, fluid restriction 1200ml Given no pulmonary edema on chest x-ray and no suspected left-sided heart failure will defer repeating her echocardiogram (3) GERD (gastroesophageal reflux disease): (4) Chronic constipation: X-ray KUB negative for obstruction. Continue MiraLAX. Administer magnesium citrate once today,04/25, and a Dulcolax rectal suppository. (5) Micheal's thyroiditis: TSH WNL Continue levothyroxine 50 mcg PO daily (6) Neuropathy: Medical management (7) Obesity hypoventilation syndrome: Aggressive weight loss recommended (8) Obstructive sleep apnea: Candidate for outpatient sleep study (9) Leg swelling: Mild pitting edema in ankles. Chronic venous insufficiency. Right sided heart failure contributing . (10) COPD (chronic obstructive pulmonary disease): Smoking history but no outpatient PFTs. Prior CTA without emphysematous changes. No infiltrates or effusions. (11) Adrenal hyperplasia: Incidentally noted on prior CT. Outpatient follow-up with PCP (12) DVT prophylaxis: Lovenox or heparin therapy Total Time Total Time Spent Total Time Spent (In Minutes): 35 minutes Discharge Plan Discharge Items Reason For Visit: ACUTE HYPOXIA HYPERCAPNIC RESP FAILURE,COPD EXACER Stand-Alone Forms: [facility] Medications and DC Order Prescriptions: No Action furosemide [Lasix] 40 mg Tablet 40 mg PO QAM MDD 80 mg RF: 0 Breo Ellipta 100-25 mcg/dose Blister With Device 1 inh INHALATION BID RF: 0 potassium gluconate 500 mg (83 mg) Tablet 500 mg PO BID RF: 0 hydrocodone-acetaminophen 10-325 mg Tablet 1 tab PO Q6H PRN (Reason: Pain) RF: 0 omeprazole 40 mg Capsule,Delayed Release(Dr/Ec) 40 mg PO BID RF: 0 trazodone 100 mg Tablet 200 mg PO HS RF: 0 levothyroxine 50 mcg Tablet 50 mcg PO QAM RF: 0 clonazepam 2 mg Tablet 2 mg PO TID RF: 0 gabapentin 300 mg Capsule 300 mg PO TID RF: 0 epinephrine [EpiPen] 0.3 mg/0.3 mL Auto-Injector 0.3 mg IM DIRECTED PRN (Reason: Allergic Reaction) RF: 0 diltiazem HCl 180 mg Capsule,Ext.Rel 24h Degradable 180 mg PO QAM RF: 0 [id number]-fczs [Fioricet] 50-300-40 mg Capsule 1 cap PO Q4H PRN (Reason: Headache) RF: 0 Admission Data Admit Date/Time: 04/24/20 12:56 Attending Provider: Orlando Jackson Admit Provider: Yayo Romero Primary Care Provider: Cosmo Olmedo Other Providers: Yayo Romero ; Amrita Selby Coding Level of Care Code D/C Day Management >30 mins Diagnoses Acute respiratory failure with hypoxia and hypercapnia J96.01; J96.02 Right-sided heart failure I50.810 GERD (gastroesophageal reflux disease) K21.9 Chronic constipation K59.09 Micheal's thyroiditis E06.3 Neuropathy G62.9 Obesity hypoventilation syndrome E66.2 Obstructive sleep apnea G47.33 Leg swelling M79.89 COPD (chronic obstructive pulmonary disease) J44.9 COPD type: unspecified COPD Adrenal hyperplasia E27.8 DVT prophylaxis Z29.9
[2020-04-30 12:25] LABS: Codeine Urine NEGATIVE ng/mL (<50); Hydrocodone Urine 367 ng/mL (<50); Hydromor Urine 89 ng/mL (<50); MDA negative; MDEA negative; MDMA (Ecstasy) Urine, Confirm negative; Morphine Urine NEGATIVE ng/mL (<50); Norhydrocodone Conf Ur 593 ng/mL (<50); Noroxycodone Urine NEGATIVE ng/mL (<50); Oxycodone Urine NEGATIVE ng/mL (<50); Oxymorph Urine NEGATIVE ng/mL (<50)
== END 2020-04-26 10:50 | disposition home or self-care (01) | DRG 189 ==
LOC: ED 10:22 → 2N 12:56 → SUATTDRO 12:56 → 2N 13:55